=== PATIENT | male | born 1940 | race Caucasian/White ===

== ENCOUNTER → 2016-08-19 | Outpatient (CLI) | payer MEDICARE, OTHER ==
[~2016-08-19] MED LIST: ALIS300T PO; ALLO100T66 PO; AMIO200T2 PO; AMLO10TA4 PO; AMLO5TAB2 PO; ASPI325T4 PO; CLON0.1T PO; DABI150C PO; LOSA100T2 PO; LOSA100T6 PO; SOTA80TA20 PO
[2016-08-19 12:25] LABS: ALBUMIN 3.2 g/dL (3.4-5.0); CALCIUM 9.2 mg/dL (8.5-10.1); CREATININE 0.9 mg/dL (0.7-1.3); DIRECT BILIRUBIN 0.2 mg/dL (0.0-0.2); GFR 82.5; POTASSIUM 4.4 mmol/L (3.5-5.1); TOTAL BILIRUBIN 0.7 mg/dL (0.2-1.0); TOTAL PROTEIN 6.7 g/dL (6.4-8.2)
== END | disposition home or self-care (01) ==
LOC: LAB 11:35
PROVIDERS: ATTEND Orthopaedic Surgery
DX: Z79.1 Long term (current) use of non-steroidal anti-inflammatories (NSAID) (principal)
CPT/HCPCS: 36415; 80048; 80076

== ENCOUNTER 2016-11-21 03:27 | Inpatient (IN) | payer MEDICARE, OTHER ==
[~2016-11-21] VITALS: Ht 182.9 cm; Wt 95.3 kg
[2016-11-21] MEDS ORDERED: IV NORMAL SALINE 1000ML BAG 1,000 ML IV SCH (03:35)
[2016-11-21 03:45] LABS: BASO # 0.1 x10^3/uL (0.0-0.2); BASO % 1 % (0-3); EOS % 2 % (0-3); HEMATOCRIT 40.4 % (39.0-53.0); HEMOGLOBIN 13.4 g/dL (13.0-17.5); LYMPH # 1.1 x10^3/uL (1.0-4.8); LYMPH % 9 % (24-48); MEAN CORPUSCULAR HEMOGLOBIN 31 pg (25-35); MEAN CORPUSCULAR HGB CONC 33 g/dL (31-37); MEAN CORPUSCULAR VOLUME 94 fL (79-100); MONO % 9 % (0-9); NEUT % 80 % (31-73); PLATELET COUNT 284 x10^3/uL (140-400); RED BLOOD COUNT 4.28 x10^6/uL (4.30-5.70); RED CELL DISTRIBUTION WIDTH 15.6 % (11.5-14.5); WHITE BLOOD COUNT 12.2 x10^3/uL (4.0-11.0)
--- NOTE | 2016-11-21 03:47 | PHYS DOC ---
Past Medical History Past Medical History: COPD, Hypertension, Other Additional Past Medical Histor: aFIB Past Surgical History: Other Additional Past Surgical Histo: BACK, KNEES, NECK, THROAT Alcohol Use: Heavy Drug Use: None Adult General Chief Complaint Chief Complaint: SHORTNESS OF BREATH HPI HPI Patient is a 76 year old male with history of hypertension and atrial fibrillation who presents with shortness of breath. Patient states that his symptoms started suddenly and awoke him from sleep prior to arrival. Patient call 911 and was brought to the emergency department by EMS. EMS stated that they found the patient to be hypoxic with an oxygen saturation in the mid 80s and started the patient on a nonrebreather mask with 100% oxygen. Patient states that this seemed to help his symptoms prior to arrival. Patient denies any chest pain or abdominal pain associated with symptoms. Patient has not had any fevers and states he has not had any similar symptoms in the past consistent with what he is experiencing at this time. Patient states that he follows with a housing officer at [facility] where he has been treated for atrial fibrillation in the past. Patient states that he has had electric cardioversion which has been able to convert him to sinus rhythm. Review of Systems Review of Systems Constitutional: Denies fever or chills [] Eyes: Denies change in visual acuity, redness, or eye pain [] HENT: Denies nasal congestion or sore throat [] Respiratory: Shortness of breath, denies cough [] Cardiovascular: Denies chest pain or edema [] GI: Denies abdominal pain, nausea, vomiting, bloody stools or diarrhea [] : Denies dysuria or hematuria [] Musculoskeletal: Denies back pain or joint pain [] Integument: Denies rash or skin lesions [] Neurologic: Denies headache, focal weakness or sensory changes [] Current Medications Current Medications Current Medications Medications (Trade) Dose Ordered Sig/Karime Start Time Stop Time Status Last Admin Dose Admin Acetaminophen (Tylenol) 650 mg PRN Q4HRS PRN 11/21/16 04:00 11/22/16 03:59 Furosemide (Lasix) 60 mg 1X ONCE 11/21/16 04:00 11/21/16 04:01 DC 11/21/16 04:01 60 MG Ondansetron HCl (Zofran) 4 mg PRN Q8HRS PRN 11/21/16 04:00 11/22/16 03:59 Sodium Chloride (Iv Sodium Chloride 0.9% 1000ml Bag) 1,000 ml @ 100 mls/hr Q10H 11/21/16 03:35 11/21/16 13:34 11/21/16 03:56 100 MLS/HR Allergies Allergies Allergies Coded Allergies Type Severity Reaction Last Updated Verified Penicillins Allergy Intermediate Rash 08/11/13 Yes Physical Exam Physical Exam Constitutional: Alert, afebrile, appears in mild respiratory distress. [] HENT: Normocephalic, atraumatic, bilateral external ears normal, oropharynx moist, no oral exudates, nose normal. [] Eyes: PERRLA, EOMI, conjunctiva normal, no discharge. [] Neck: Normal range of motion, no tenderness, supple, no stridor. [] Cardiovascular: Normal rate, irregular rhythm, no murmur [] Lungs & Thorax: Bilateral breath sounds clear to auscultation [] Abdomen: Bowel sounds normal, soft, no tenderness, no masses, no pulsatile masses. [] Skin: Warm, dry, no erythema, no rash. [] Back: No tenderness, no CVA tenderness. [] Extremities: No tenderness, no cyanosis, no clubbing, ROM intact, no edema. [] Neurologic: Alert and oriented X 3, normal motor function, normal sensory function, no focal deficits noted. [] Current Patient Data Vital Signs Vital Signs Date Time Temp Pulse Resp B/P Pulse Ox O2 Delivery O2 Flow Rate FiO2 11/21/16 03:32 77 20 229/95 91 Room Air Lab Values Laboratory Tests Test 11/21/16 03:33 11/21/16 03:40 White Blood Count 12.2x10^3/uL (4.0-11.0) H Red Blood Count 4.28x10^6/uL (4.30-5.70) L Hemoglobin 13.4g/dL (13.0-17.5) Hematocrit 40.4% (39.0-53.0) Mean Corpuscular Volume 94fL (79-100) Mean Corpuscular Hemoglobin 31pg (25-35) Mean Corpuscular Hemoglobin Concent 33g/dL (31-37) Red Cell Distribution Width 15.6% (11.5-14.5) H Platelet Count 284x10^3/uL (140-400) Neutrophils (%) (Auto) 80% (31-73) H Lymphocytes (%) (Auto) 9% (24-48) L Monocytes (%) (Auto) 9% (0-9) Eosinophils (%) (Auto) 2% (0-3) Basophils (%) (Auto) 1% (0-3) Neutrophils # (Auto) 9.8x10^3uL (1.8-7.7) H Lymphocytes # (Auto) 1.1x10^3/uL (1.0-4.8) Monocytes # (Auto) 1.0x10^3/uL (0.0-1.1) Eosinophils # (Auto) 0.2x10^3/uL (0.0-0.7) Basophils # (Auto) 0.1x10^3/uL (0.0-0.2) Sodium Level 134mmol/L (136-145) L Potassium Level 4.4mmol/L (3.5-5.1) Chloride Level 101mmol/L (98-107) Carbon Dioxide Level 28mmol/L (21-32) Anion Gap 5 (6-14) L Blood Urea Nitrogen 17mg/dL (8-26) Creatinine 1.2mg/dL (0.7-1.3) Estimated GFR (Cockcroft-Gault) 59.2 BUN/Creatinine Ratio 14 (6-20) Glucose Level 111mg/dL (70-99) H Calcium Level 8.5mg/dL (8.5-10.1) Total Bilirubin 0.7mg/dL (0.2-1.0) Aspartate Amino Transferase (AST) 23U/L (15-37) Alanine Aminotransferase (ALT) 32U/L (16-63) Alkaline Phosphatase 99U/L (46-116) Creatine Kinase 99U/L (39-308) Creatine Kinase MB (Mass) 1.4ng/mL (0.0-3.6) Creatine Kinase MB Relative Index 1.4% (0-4) Troponin I Quantitative < 0.017ng/mL (0.000-0.055) JU-Hng-A-Type Natriuretic Peptide 2772pg/mL (0-124) H Total Protein 6.5g/dL (6.4-8.2) Albumin 3.3g/dL (3.4-5.0) L Albumin/Globulin Ratio 1.0 (1.0-1.7) Urine Collection Type Unknown Urine Color Yellow Urine Clarity Clear Urine pH 7.0 Urine Specific [place] <=1.005 Urine Protein Negativemg/dL (NEG-TRACE) Urine Glucose (UA) Negativemg/dL (NEG) Urine Ketones (Stick) Negativemg/dL (NEG) Urine Blood Negative (NEG) Urine Nitrite Negative (NEG) Urine Bilirubin Negative (NEG) Urine Urobilinogen Dipstick 0.2mg/dL (0.2 mg/dL) Urine Leukocyte Esterase Negative (NEG) Urine RBC Occ/HPF (0-2) Urine WBC 0/HPF (0-4) Urine Squamous Epithelial Cells Occ/LPF Urine Bacteria 0/HPF (0-FEW) Laboratory Tests 11/21/16 03:33 Laboratory Tests 11/21/16 03:33 EKG EKG Interpreted by me: Heart rate 69, atrial fibrillation, nonspecific intraventricular block, leftward axis, no acute ST/T-wave abnormalities present [] Radiology/Procedures Radiology/Procedures One view AP chest x-ray interpreted by me: Bilateral pulmonary edema, pulmonary vascular congestion, mild bilateral pleural effusions, cardiomegaly [] Course & Med Decision Making Course & Med Decision Making Pertinent Labs and Imaging studies reviewed. (See chart for details) Patient's chest x-ray shows evidence of acute congestive heart failure. Patient was given 60 mg of IV Lasix. Patient's oxygen saturations are stable at 93% on nasal cannula. The patient will be admitted for further treatment of acute congestive heart failure. I spoke with Dr. Jamil who was on-call for Dr. Yancey and she accepted care patient in hospital. A consult was placed to Dr. King to follow with patient in hospital. Dragon Disclaimer Dragon Disclaimer This electronic medical record was generated, in whole or in part, using a voice recognition dictation system. Departure Departure Impression: Primary Impression: Acute congestive heart failure Additional Impression: Atrial fibrillation Disposition: ADMITTED INPATIENT Admitting Physician: Jessica Yancey Condition: GUARDED Problem Qualifiers Primary Impression: Acute congestive heart failure Congestive heart failure type: unspecified congestive heart failure type Qualified Code: I50.9 - Heart failure, unspecified Additional Impression: Atrial fibrillation Atrial fibrillation type: unspecified Qualified Code: I48.91 - Unspecified atrial fibrillation JACE MCFARLAND MD Nov 21, 2016 03:47
[2016-11-21 03:48] LABS: BILIRUBIN,URINE NEGATIVE (NEG); GLUCOSE,URINE NEGATIVE (NEG); NITRITE,URINE NEGATIVE (NEG); PROTEIN,URINE NEGATIVE (NEG-TRACE); UROBILINOGEN,URINE 0.2 mg/dL (0.2 mg/dL)
[2016-11-21 03:53] LABS: BACTERIA,URINE 0 /HPF (0-FEW); RBC,URINE OCC /HPF (0-2); SQUAMOUS EPITHELIAL CELL,UR OCC /LPF; WBC,URINE 0 /HPF (0-4)
[2016-11-21 03:56] LABS: CALCIUM 8.5 mg/dL (8.5-10.1); CREATININE 1.2 mg/dL (0.7-1.3); GFR 59.2; POTASSIUM 4.4 mmol/L (3.5-5.1)
[2016-11-21] MEDS ORDERED: FUROSEMIDE 40 MG/4 ML VIAL. IVP ONE (04:00)
[2016-11-21] MEDS ORDERED: ONDANSETRON PF 4 MG/2 ML VIAL. IV PRN (04:00)
[2016-11-21] MEDS ORDERED: ACETAMINOPHEN 325 MG TABLET. PO PRN (04:00)
[2016-11-21 04:06] LABS: ALBUMIN 3.3 g/dL (3.4-5.0); TOTAL BILIRUBIN 0.7 mg/dL (0.2-1.0); TOTAL PROTEIN 6.5 g/dL (6.4-8.2)
[2016-11-21 04:18] LABS: CKMB MASS 1.4 ng/mL (0.0-3.6)
--- NOTE | 2016-11-21 06:11 | EKG ---
[facility] [address] [place] [address] Test Date: 2016-11-21 Test Time: 03:32:42 Pat Name: TRUDY VALADEZ Department: Room: 204 1 Gender: M Multimedia Services Coordinator: : 1940 Requested By: JACE MCFARLAND Order Number: [id number] Reading MD: True Dodge Measurements Intervals [place] Rate: 69 P: MA: QRS: -26 QRSD: 126 T: 78 QT: 372 QTc: 404 Interpretive Statements ATRIAL FIBRILLATION NON SPECIFIC INTRAVENTRICULAR BLOCK PRIOR BIRDIE-SEPTAL INFARCT Electronically Signed On 11-21-2016 18:00:10 CDT by True Dodge
--- NOTE | 2016-11-21 07:17 | RAD ---
Exam: AP portable chest. History: Shortness of breath. Comparison: 04/28/2011. Findings: Cardiac silhouette is borderline enlarged. No pneumothorax is seen. There may be small bilateral pleural effusions. Pulmonary vascularity is increased and there are increased interstitial markings. Patchy bilateral alveolar densities are seen, probably asymmetric pulmonary edema. Findings are compatible with mild-moderate congestive heart failure. Impression: 1. Multilevel moderate congestive heart failure
[2016-11-21 07:50] VITALS: BP 172/79
--- NOTE | 2016-11-21 07:57 | ACF ---
Admit Criteria Forms Admit Criteria Forms Admit Criteria Forms HEART FAILURE: COMMON COMPLICATIONS Clinical Indications for Inpatient Care (Place 'X' for any and all applicable criteria): Ongoing inpatient care may be indicated for heart failure with ANY ONE of the following (1)(2)(3)(4)(5): [ ]I. Ongoing need for care for primary condition requiring frequent therapy adjustments because of changes in cardiac function (eg, drug dosage changes for drugs that are renally metabolized) [ ]II. New-onset heart failure [ ]III. Heart failure with decreased urine output not responsive to attempts to optimize volume status [ ]IV. Acute cardiac ischemia causing or associated with failure [X]V. Complications of heart failure, including ANY ONE of the following: [ ]a) Pericardial effusion [ ]b) Symptomatic pleural effusion [ ]c) O2 saturation <90% or PO2 < 60 mm Hg (8.0 kPa) on room air or require baseline supplemental O2 [ ]d) Tachypnea [X]e) Dyspnea [ ]f) Syncope [ ]g) Change in mental status [ ]h) Acute renal insufficiency that is severe (reduction of more than 50% in estimated glomerular filtration rate from baseline) or progressive reduction of more than 25% in estimated glomerular filtration rate from baseline, with creatinine continuing to rise) [ ]i) Hemodynamic instability [ ]j) Anasarca [ ]k) Clinically significant metabolic abnormalities due to heart failure (eg, new-onset metabolic acidosis) Extended stay beyond goal length of stay for primary condition may be needed until ALL of the following are present(1)(3): [ ]a) Stable and effective diuretic regimen established (or patient on stable dialysis regimen if in chronic renal failure) [ ]b) Breathing comfortably at rest [ ]c) Saturation of arterial oxygen greater than 90% or at acceptable baseline [ ]d) Pulmonary edema absent or improved [ ]e) Hemodynamic stability [ ]f) Volume status acceptable on oral medication [ ]g) Peripheral or sacral edema absent or improved [ ]h) Renal function stable and manageable at a lower level of care [ ]i) Complications (eg, pleural effusion) resolved or manageable at a lower level of care [ ]j) Patient or caregiver has received written discharge instructions or educational material addressing activity level, diet, discharge medications, follow-up appointment, weight monitoring, and what to do if symptoms worsen The original [employer] content created by [employer] has been revised. The portions of the content which have been revised are identified through the use of italic text or in bold, and [facility] has neither reviewed nor approved the modified material.All other unmodified content is copyright [facility] [employer]. Please see references footnoted in the original [facility] [employer] edition 2016 MUKESH GOLDEN Nov 21, 2016 07:57
[2016-11-21] MEDS ORDERED: AMLO10TA2 PO (08:10)
[2016-11-21] MEDS ORDERED: SOTA80TA48 PO (08:10)
[2016-11-21] MEDS ORDERED: FINA5TAB4 PO (08:10)
[2016-11-21] MEDS ORDERED: TRAM50TA PO (08:10)
[2016-11-21] MEDS ORDERED: TAMS0.4C2 PO (08:10)
[2016-11-21] MEDS ORDERED: TRAMADOL 50 MG TABLET. PO SCH (08:15)
--- NOTE | 2016-11-21 08:23 | PDOC ---
PROGRESS NOTES Subjective Subjective Patient reports SOA has improved since admission. Denies any CP. Objective Objective Vital Signs Date Time Temp Pulse Resp B/P Pulse Ox O2 Delivery O2 Flow Rate FiO2 11/21/16 07:50 97.9 76 20 172/79 97 Nasal Cannula 3.0 97.9 Intake and Output 11/21/16 07:00 Intake Total 200 ml Balance 200 ml Intake IV Total 200 ml Physical Exam Abdomen: Normal bowel sounds, Soft, No tenderness Heart: Other (irregularly irregular) Extremities: No edema General: Alert, Oriented X3, No acute distress Lungs: Other (BS decreased throughout but otherwise CTA) Assessment Assessment Problems Medical Problems: (1) Acute congestive heart failure Status: Acute (2) Atrial fibrillation Status: Acute (3) CHF (congestive heart failure) Status: Acute Plan Plan of Care 1. Acute CHF with pulmonary edema - good diuresis with one dose of Lasix. Await further evaluation as per Cardiology. 2. PAF - continue Pradaxa and ASA. Rate controlled. 3. HTN - continue home meds and follow. 4. BPH - continue home meds. 5. chronic back pain - continue Tramadol as needed. Comment Review of Relevant I have reviewed the following items anthony (where applicable) has been applied. Labs Laboratory Tests Test 11/21/16 03:33 11/21/16 03:40 White Blood Count 12.2x10^3/uL (4.0-11.0) Red Blood Count 4.28x10^6/uL (4.30-5.70) Hemoglobin 13.4g/dL (13.0-17.5) Hematocrit 40.4% (39.0-53.0) Mean Corpuscular Volume 94fL (79-100) Mean Corpuscular Hemoglobin 31pg (25-35) Mean Corpuscular Hemoglobin Concent 33g/dL (31-37) Red Cell Distribution Width 15.6% (11.5-14.5) Platelet Count 284x10^3/uL (140-400) Neutrophils (%) (Auto) 80% (31-73) Lymphocytes (%) (Auto) 9% (24-48) Monocytes (%) (Auto) 9% (0-9) Eosinophils (%) (Auto) 2% (0-3) Basophils (%) (Auto) 1% (0-3) Neutrophils # (Auto) 9.8x10^3uL (1.8-7.7) Lymphocytes # (Auto) 1.1x10^3/uL (1.0-4.8) Monocytes # (Auto) 1.0x10^3/uL (0.0-1.1) Eosinophils # (Auto) 0.2x10^3/uL (0.0-0.7) Basophils # (Auto) 0.1x10^3/uL (0.0-0.2) Sodium Level 134mmol/L (136-145) Potassium Level 4.4mmol/L (3.5-5.1) Chloride Level 101mmol/L (98-107) Carbon Dioxide Level 28mmol/L (21-32) Anion Gap 5 (6-14) Blood Urea Nitrogen 17mg/dL (8-26) Creatinine 1.2mg/dL (0.7-1.3) Estimated GFR (Cockcroft-Gault) 59.2 BUN/Creatinine Ratio 14 (6-20) Glucose Level 111mg/dL (70-99) Calcium Level 8.5mg/dL (8.5-10.1) Total Bilirubin 0.7mg/dL (0.2-1.0) Aspartate Amino Transf (AST/SGOT) 23U/L (15-37) Alanine Aminotransferase (ALT/SGPT) 32U/L (16-63) Alkaline Phosphatase 99U/L (46-116) Creatine Kinase 99U/L (39-308) Creatine Kinase MB (Mass) 1.4ng/mL (0.0-3.6) Creatine Kinase MB Relative Index 1.4% (0-4) Troponin I Quantitative < 0.017ng/mL (0.000-0.055) DT-Inu-D-Type Natriuretic Peptide 2772pg/mL (0-124) Total Protein 6.5g/dL (6.4-8.2) Albumin 3.3g/dL (3.4-5.0) Albumin/Globulin Ratio 1.0 (1.0-1.7) Urine Collection Type Unknown Urine Color Yellow Urine Clarity Clear Urine pH 7.0 Urine Specific [place] <=1.005 Urine Protein Negativemg/dL (NEG-TRACE) Urine Glucose (UA) Negativemg/dL (NEG) Urine Ketones (Stick) Negativemg/dL (NEG) Urine Blood Negative (NEG) Urine Nitrite Negative (NEG) Urine Bilirubin Negative (NEG) Urine Urobilinogen Dipstick 0.2mg/dL (0.2 mg/dL) Urine Leukocyte Esterase Negative (NEG) Urine RBC Occ/HPF (0-2) Urine WBC 0/HPF (0-4) Urine Squamous Epithelial Cells Occ/LPF Urine Bacteria 0/HPF (0-FEW) Laboratory Tests Test 11/21/16 03:33 11/21/16 03:40 White Blood Count 12.2x10^3/uL (4.0-11.0) Red Blood Count 4.28x10^6/uL (4.30-5.70) Hemoglobin 13.4g/dL (13.0-17.5) Hematocrit 40.4% (39.0-53.0) Mean Corpuscular Volume 94fL (79-100) Mean Corpuscular Hemoglobin 31pg (25-35) Mean Corpuscular Hemoglobin Concent 33g/dL (31-37) Red Cell Distribution Width 15.6% (11.5-14.5) Platelet Count 284x10^3/uL (140-400) Neutrophils (%) (Auto) 80% (31-73) Lymphocytes (%) (Auto) 9% (24-48) Monocytes (%) (Auto) 9% (0-9) Eosinophils (%) (Auto) 2% (0-3) Basophils (%) (Auto) 1% (0-3) Neutrophils # (Auto) 9.8x10^3uL (1.8-7.7) Lymphocytes # (Auto) 1.1x10^3/uL (1.0-4.8) Monocytes # (Auto) 1.0x10^3/uL (0.0-1.1) Eosinophils # (Auto) 0.2x10^3/uL (0.0-0.7) Basophils # (Auto) 0.1x10^3/uL (0.0-0.2) Sodium Level 134mmol/L (136-145) Potassium Level 4.4mmol/L (3.5-5.1) Chloride Level 101mmol/L (98-107) Carbon Dioxide Level 28mmol/L (21-32) Anion Gap 5 (6-14) Blood Urea Nitrogen 17mg/dL (8-26) Creatinine 1.2mg/dL (0.7-1.3) Estimated GFR (Cockcroft-Gault) 59.2 BUN/Creatinine Ratio 14 (6-20) Glucose Level 111mg/dL (70-99) Calcium Level 8.5mg/dL (8.5-10.1) Total Bilirubin 0.7mg/dL (0.2-1.0) Aspartate Amino Transf (AST/SGOT) 23U/L (15-37) Alanine Aminotransferase (ALT/SGPT) 32U/L (16-63) Alkaline Phosphatase 99U/L (46-116) Creatine Kinase 99U/L (39-308) Creatine Kinase MB (Mass) 1.4ng/mL (0.0-3.6) Creatine Kinase MB Relative Index 1.4% (0-4) Troponin I Quantitative < 0.017ng/mL (0.000-0.055) BL-Rln-X-Type Natriuretic Peptide 2772pg/mL (0-124) Total Protein 6.5g/dL (6.4-8.2) Albumin 3.3g/dL (3.4-5.0) Albumin/Globulin Ratio 1.0 (1.0-1.7) Urine Collection Type Unknown Urine Color Yellow Urine Clarity Clear Urine pH 7.0 Urine Specific [place] <=1.005 Urine Protein Negativemg/dL (NEG-TRACE) Urine Glucose (UA) Negativemg/dL (NEG) Urine Ketones (Stick) Negativemg/dL (NEG) Urine Blood Negative (NEG) Urine Nitrite Negative (NEG) Urine Bilirubin Negative (NEG) Urine Urobilinogen Dipstick 0.2mg/dL (0.2 mg/dL) Urine Leukocyte Esterase Negative (NEG) Urine RBC Occ/HPF (0-2) Urine WBC 0/HPF (0-4) Urine Squamous Epithelial Cells Occ/LPF Urine Bacteria 0/HPF (0-FEW) Medications Current Medications Sodium Chloride (Iv Sodium Chloride 0.9% 1000ml Bag) 1,000 ml @ 100 mls/hr Q10H IV Last administered on 11/21/16 03:56; Start 11/21/16 at 03:35; Stop at 13:34 Furosemide (Lasix) 60 mg 1X ONCE IVP Last administered on 4/28/17at 04:01; Start 11/21/16 at 04:00; Stop 11/21/16 at 04:01; Status DC Ondansetron HCl (Zofran) 4 mg PRN Q8HRS PRN IV NAUSEA/VOMITING; Start 11/21/16 at 04:00; Stop 11/22/16 at 03:59 Acetaminophen (Tylenol) 650 mg PRN Q4HRS PRN PO FEVER; Start 11/21/16 at 04:00 ; Stop 11/22/16 at 03:59 Active Scripts Active Finasteride 5 Mg Tablet 1 Tab PO DAILY Tamsulosin Hcl 0.4 Mg Cap.er.24h 1 Cap PO DAILY Amlodipine Besylate 10 Mg Tablet 10 Mg PO DAILY Tramadol Hcl 50 Mg Tablet 1 Tab PO PRN Q6HRS Sotalol (Sotalol Hcl) 80 Mg Tablet 1 Tab PO BID Reported Clonidine Hcl 0.1 Mg Tablet 0.1 Mg PO BID Losartan Potassium 100 Mg Tablet 100 Mg PO DAILY Pradaxa (Dabigatran Etexilate Mesylate) 150 Mg Capsule 150 Mg PO BID Aspirin 325 Mg Tablet 325 Mg PO DAILY Zyloprim (Allopurinol) 100 Mg Tablet 100 Mg PO DAILY Vitals/I & O Vital Sign - Last 24 Hours 11/21/16 11/21/16 11/21/16 11/21/16 03:32 03:37 04:07 04:37 Pulse 77 82 79 79 Resp 20 B/P 229/95 173/83 129/74 180/78 Pulse Ox 91 91 94 95 O2 Delivery Room Air Room Air Nasal Cannula Nasal Cannula O2 Flow Rate 4 4 11/21/16 11/21/16 11/21/16 11/21/16 05:07 05:30 06:00 07:50 Temp 97.9 97.9 Pulse 72 66 76 Resp 18 20 B/P 164/76 180/79 172/79 Pulse Ox 96 96 97 97 O2 Delivery Nasal Cannula Nasal Cannula Nasal Cannula Nasal Cannula O2 Flow Rate 4 3 3 3.0 Intake and Output 11/20/16 11/20/16 11/21/16 15:00 23:00 07:00 Intake Total 200 ml Balance 200 ml FRANCISCO J CARTER MD Nov 21, 2016 08:22
[2016-11-21] MEDS ORDERED: ANTI-COAG MONITOR BY PHARMACY. MC PRN (08:30)
[2016-11-21] MEDS ORDERED: ASPIRIN 325 MG TABLET PO SCH (09:00)
[2016-11-21] MEDS ORDERED: cloNIDine HCL 0.1 MG TABLET PO SCH (09:00)
--- NOTE | 2016-11-21 09:20 | HP ---
ADMIT DATE: 11/21/2016 CHIEF COMPLAINT: Shortness of breath. HISTORY OF PRESENT ILLNESS: The patient is a 76-year-old male with a history of paroxysmal atrial fibrillation, who presented to the Emergency Room with the above complaint. He reported the onset of significant shortness of breath on the night of admission. It awoke him from sleep. When his symptoms persisted, he called 911, and was brought to the Emergency Room. EMS reported they found the patient to be hypoxic with an oxygen saturation in the mid 80s on room air and had started him on oxygen. Evaluation in the Emergency Room showed him to be in acute congestive heart failure with some pulmonary edema seen on his chest x-ray. He was given Lasix and admitted for further treatment. PAST MEDICAL HISTORY: Paroxysmal atrial fibrillation, the patient sees a ride operator at [facility] for this; hypertension; gout; BPH and chronic back pain. PAST SURGICAL HISTORY: Back surgery, carotid endarterectomy and knee surgery. ALLERGIES: THE PATIENT IS ALLERGIC TO PENICILLIN. HOME MEDICATIONS: Pradaxa 150 mg b.i.d., the patient reports he just resumed this recently; aspirin 325 mg daily; allopurinol 100 mg daily; amlodipine 10 mg daily; clonidine 0.1 mg b.i.d.; finasteride 5 mg daily; losartan 100 mg daily; sotalol 80 mg b.i.d.; Flomax 0.4 mg daily and tramadol 50 mg p.r.n. back pain. FAMILY HISTORY: Noncontributory. SOCIAL HISTORY: The patient is and lives at home with his . He smokes about 1/2 pack of cigarettes daily. He does not drink alcohol to excess. REVIEW OF SYSTEMS: The patient denies fever or chills. He denies chest pain. He reports that he had been in sinus rhythm for over 1 year until recently when he felt some palpitations and knew that he had gone back into atrial fibrillation. He did not have any chest pain with this. He resumed taking his Pradaxa when this occurred, but apparently made no other changes in his medications. He denies other episodes of shortness of breath. He denies a productive cough. He has had some mildly increasing shortness of breath for some time before this admission, it suddenly worsened last night. He denies abdominal pain, nausea or vomiting. He reports his back pain is controlled with his usual medication. He denies difficulty urinating. PHYSICAL EXAMINATION: GENERAL: The patient is alert and oriented x 3, resting comfortably in bed, in no acute distress. HEENT: PERRL, EOMI, sclerae clear. Oropharynx: Mucous membranes moist. NECK: Supple, without lymphadenopathy. CHEST: Breath sounds mildly decreased throughout, but otherwise clear to auscultation. CARDIOVASCULAR: Irregularly irregular. ABDOMEN: Soft, nontender, normoactive bowel sounds are present. EXTREMITIES: Without edema. ASSESSMENT AND PLAN: 1. Congestive heart failure. The patient had pulmonary edema and hypoxia at admission. He states his breathing is improved with the oxygen per nasal cannula. He received one dose of IV Lasix in the ER and had good urine output with that. He will be seen by Cardiology while he is here for help with further evaluation and treatment. 2. Atrial fibrillation. Continue anticoagulation and medications for rate control. 3. Hypertension. Continue home medications. 4. Benign prostatic hyperplasia. Continue home medication. 5. Chronic back pain. This appears stable. Continue tramadol as needed. FRANCISCO J CARTER MD DR: GADIEL/ryan JOB#: [id number] / [id number] JEFFREY
[2016-11-21 09:32] LABS: CHOLESTEROL/HDL RATIO 2.8; MAGNESIUM 1.9 mg/dL (1.8-2.4)
[2016-11-21] MEDS: LOSARTAN POTASSIUM 50 MG TABLET. PO SCH (10:58)
[2016-11-21] MEDS: TAMSULOSIN 0.4 MG CAP.ER.24H. PO SCH (10:58)
[2016-11-21] MEDS: DABIGATRAN ETEXILATE 150 MG CAPSULE. PO SCH ×2 (10:59→20:44)
[2016-11-21] MEDS: SOTALOL 80 MG TABLET. PO SCH ×2 (10:59→20:44)
[2016-11-21] MEDS: amLODIPine BESYLATE 10 MG TABLET PO SCH (10:59)
[2016-11-21] MEDS: ALLOPURINOL 100 MG TABLET. PO SCH (10:59)
[2016-11-21] MEDS: FINASTERIDE 5 MG TABLET. PO SCH (11:00)
--- NOTE | 2016-11-21 11:08 | PDOC2 ---
URIEL MALLOY ASSESSMENT COUNSELOR 11/21/16 1108: CARDIAC CONSULT DATE OF CONSULT Date of Consult DATE: 11/21/16 TIME: 10:37 REASON FOR CONSULT Reason for Consult: Acute CHF REFERRING PHYSICIAN Referring Physician: Sandee SOURCE Source: Chart review, Patient HISTORY OF PRESENT ILLNESS HISTORY OF PRESENT ILLNESS This is a pleasant 76 yo male admitted for complains of SOA. Reports that in the last 2 weeks he has been having intermittent episodes of MOFFETT. In the last 1 -2 days it has become worse. Positive for SOA at rest but has not been having orthopnea. Denies any nausea, vomiting, chest pain, no coughing. Reports continued tobacco use and heavy alcoholism. Denies any IVY workup. Last stress test was 4 yrs ago. Reports that he has been taking his medications regularly but his BP has been up and down. Denies any palpitations, dizziness. He does have COPD but no inhalers. 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 WHITE". He is on pradaxa and regular dose ASA and he told me that his DrDomonique is ok with this. No prior hx of CAD, VTE, syncope. He had AFIB for 4-5 yrs now. PAST MEDICAL HISTORY Cardiovascular: AFIB, HTN, Other (carotid artery disease) Pulmonary: COPD CENTRAL NERVOUS SYSTEM: Other (No pertinent history) GI: No pertinent hx Heme/Onc: Other (chronic anticoagulation) Musculoskeletal: low back pain, Osteoarthritis Rheumatologic: No pertinent hx, Gout Infectious disease: No pertinent hx ENT: No pertinent hx Renal/: Benign prostatic enlarg. Endocrine: No pertinent hx Dermatology: No pertinent hx PAST SURGICAL HISTORY Past Surgical History: Total knee replacement (right), Other (cervical and lumbar fusion; right carotid endarterectomy) FAMILY HISTORY Family History noncontributory SOCIAL HISTORY Smoke: <1 pack per day ALCOHOL: occassional Drugs: None CURRENT MEDICATIONS CURRENT MEDICATIONS Current Medications Medications (Trade) Dose Ordered Sig/Karime Route PRN Reason Start Time Stop Time Status Last Admin Dose Admin Sodium Chloride (Iv Sodium Chloride 0.9% 1000ml Bag) 1,000 ml @ 100 mls/hr Q10H IV 11/21/16 03:35 11/21/16 13:34 11/21/16 03:56 Furosemide (Lasix) 60 mg 1X ONCE IVP 11/21/16 04:00 11/21/16 04:01 DC 11/21/16 04:01 ALLERGIES ALLERGIES: Coded Allergies: Penicillins (Verified Allergy, Intermediate, Rash, 08/11/13) ROS Review of System 14 point ROS evaluated with pertinent positives noted per HPI PHYSICAL EXAM General: Alert, Oriented X3, Cooperative, No acute distress HEENT: Atraumatic, Mucous membr. moist/pink Lungs: Other (right basilar crackles) Heart: Normal S1, Normal S2, Other (AFIB; distatn heart sounds) Extremities: No cyanosis, Other (trace LE edema) Skin: No breakdown, No significant lesion Neuro: Normal speech, Sensation intact Psych/Mental Status: Mental status NL, Mood NL MUSCULOSKELETAL: Osteoarthritic changes both hands VITALS VITALS Vital Signs Date Time Temp Pulse Resp B/P Pulse Ox O2 Delivery O2 Flow Rate FiO2 11/21/16 07:50 97.9 76 20 172/79 97 Nasal Cannula 3.0 97.9 LABS Lab: Laboratory Tests Test 11/21/16 03:33 11/21/16 03:40 White Blood Count 12.2x10^3/uL (4.0-11.0) Red Blood Count 4.28x10^6/uL (4.30-5.70) Hemoglobin 13.4g/dL (13.0-17.5) Hematocrit 40.4% (39.0-53.0) Mean Corpuscular Volume 94fL (79-100) Mean Corpuscular Hemoglobin 31pg (25-35) Mean Corpuscular Hemoglobin Concent 33g/dL (31-37) Red Cell Distribution Width 15.6% (11.5-14.5) Platelet Count 284x10^3/uL (140-400) Neutrophils (%) (Auto) 80% (31-73) Lymphocytes (%) (Auto) 9% (24-48) Monocytes (%) (Auto) 9% (0-9) Eosinophils (%) (Auto) 2% (0-3) Basophils (%) (Auto) 1% (0-3) Neutrophils # (Auto) 9.8x10^3uL (1.8-7.7) Lymphocytes # (Auto) 1.1x10^3/uL (1.0-4.8) Monocytes # (Auto) 1.0x10^3/uL (0.0-1.1) Eosinophils # (Auto) 0.2x10^3/uL (0.0-0.7) Basophils # (Auto) 0.1x10^3/uL (0.0-0.2) Sodium Level 134mmol/L (136-145) Potassium Level 4.4mmol/L (3.5-5.1) Chloride Level 101mmol/L (98-107) Carbon Dioxide Level 28mmol/L (21-32) Anion Gap 5 (6-14) Blood Urea Nitrogen 17mg/dL (8-26) Creatinine 1.2mg/dL (0.7-1.3) Estimated GFR (Cockcroft-Gault) 59.2 BUN/Creatinine Ratio 14 (6-20) Glucose Level 111mg/dL (70-99) Calcium Level 8.5mg/dL (8.5-10.1) Magnesium Level 1.9mg/dL (1.8-2.4) Total Bilirubin 0.7mg/dL (0.2-1.0) Aspartate Amino Transf (AST/SGOT) 23U/L (15-37) Alanine Aminotransferase (ALT/SGPT) 32U/L (16-63) Alkaline Phosphatase 99U/L (46-116) Creatine Kinase 99U/L (39-308) Creatine Kinase MB (Mass) 1.4ng/mL (0.0-3.6) Creatine Kinase MB Relative Index 1.4% (0-4) Troponin I Quantitative < 0.017ng/mL (0.000-0.055) AT-Kjm-I-Type Natriuretic Peptide 2772pg/mL (0-124) Total Protein 6.5g/dL (6.4-8.2) Albumin 3.3g/dL (3.4-5.0) Albumin/Globulin Ratio 1.0 (1.0-1.7) Triglycerides Level 43mg/dL (0-150) Cholesterol Level 141mg/dL (0-200) LDL Cholesterol, Calculated 81mg/dL (0-100) VLDL Cholesterol, Calculated 9mg/dL (0-40) Non-HDL Cholesterol Calculated 90mg/dL (0-129) HDL Cholesterol 51mg/dL (40-60) Cholesterol/HDL Ratio 2.8 Thyroid Stimulating Hormone (TSH) 2.291uIU/mL (0.358-3.74) Urine Collection Type Unknown Urine Color Yellow Urine Clarity Clear Urine pH 7.0 Urine Specific [place] <=1.005 Urine Protein Negativemg/dL (NEG-TRACE) Urine Glucose (UA) Negativemg/dL (NEG) Urine Ketones (Stick) Negativemg/dL (NEG) Urine Blood Negative (NEG) Urine Nitrite Negative (NEG) Urine Bilirubin Negative (NEG) Urine Urobilinogen Dipstick 0.2mg/dL (0.2 mg/dL) Urine Leukocyte Esterase Negative (NEG) Urine RBC Occ/HPF (0-2) Urine WBC 0/HPF (0-4) Urine Squamous Epithelial Cells Occ/LPF Urine Bacteria 0/HPF (0-FEW) ASSESSMENT/PLAN ASSESSMENT/PLAN 1. Acute CHF with possible diastolic dysfunction: likely from uncontrolled HTN, possible IVY, COPD 2. COPD: no home treatments 3. PAFIB: currently AFIB rate controlled 4. Malignant HTN: contributing ETOH, tobaccoism, and possible IVY 5. Tobaccoism 6. Heavy alcoholism: 6 reyna light daily, defer to PCP 7. Hx of carotid artery disease Recommendations 1. Continue on pradaxa and sotalol. Would prefer ECASA at 81 rather that 325. 2. Discussed smoking cessation, bp monitoring and decreasing ETOH intake, and interactions with meds. 3. Continue with lasix therapy. 4. Would recommend repeat outpt MPI for further risk stratification. Last test 4 -5 yrs ago. Will defer to [facility] roofing subcontractor 5. Further recommendation per TTE results. 6. Restart home BP meds. 7. Lipids, TSH, Mg Problems: SHIRLEY CORDERO MD 11/21/161906: CARDIAC CONSULT ALLERGIES ALLERGIES: Coded Allergies: Penicillins (Verified Allergy, Intermediate, Rash, 08/11/13) ASSESSMENT/PLAN ASSESSMENT/PLAN Patient seen and examined. Agree with above nurse practitioner note. 76-year-old gentleman who presents to the hospital in the setting of hypertensive emergency. He had acute hypoxic respiratory failure. Patient reports compliance with his medications. At baseline he is able to ambulate 2-3 miles daily without any chest pain. Decreased breath sounds in the bilateral lung holland. Normal cardiac exam. He has no edema. Labs reviewed and notable for stable creatinine and negative cardiac enzymes. Etiology of his acute hypertensive crisis is unclear. It may be that he may have missed some doses of clonidine and could've had rebound hypertension. We will monitor him over the course of today and reassess the need to increase his clonidine prior to discharge. Suspect he might need to increase his clonidine to 0.2 mg twice a day dosing or additional agent such as hydralazine may be necessary. Discussed lifestyle modification with the patient. We will assess possible renal artery stenosis on an outpatient basis. Continue supportive care. We will follow along closely. Anticipate discharge tomorrow from a CV perspective. Problems: URIEL MALLOY APRN Nov 21, 2016 11:08 SHIRLEY CORDERO MD Nov 21, 2016 19:07
[2016-11-21 11:30] VITALS: BP 137/57
[2016-11-21] MEDS: FUROSEMIDE 40 MG/4 ML VIAL. IVP SCH ×2 (13:03→17:35)
--- NOTE | 2016-11-21 13:19 | CARD ---
APPROVED REPORT EXAM: Two-dimensional and M-mode echocardiogram with Doppler and color Doppler. Other Information Quality : GoodHR: 70bpm Rhythm : Atrial Fibrillation INDICATION Congestive Heart Failure 2D DIMENSIONS RVDd3.0 (2.9-3.5cm)Left Atrium(2D)4.0 (1.6-4.0cm) IVSd1.0 (0.7-1.1cm)Aortic Root(2D)2.6 (2.0-3.7cm) LVDd5.4 (3.9-5.9cm)LVOT Diameter2.3 (1.8-2.4cm) PWd1.0 (0.7-1.1cm)LVDs3.7 (2.5-4.0cm) FS (%) 31.1 %SV83.7 ml LVEF(%)58.3 (>50%) Aortic Valve AoV Peak Ambrocio.163.3cm/sAoV VTI29.0cm AO Peak GR.10.7mmHgLVOT Peak Ambrocio.104.6cm/s LVOT VTI 19.94cmAO Mean GR.5mmHg NORBERT (VMAX)2.10wd9OXO (VTI)2.82cm2 Mitral Valve MV E Dqixtdes779.9cm/sMV DECEL [id number] MV AUA22cjHLT (PHT)3.47cm2 Pulmonary Valve PV Peak Yafedfag509.4cm/sPV Peak Grad.5mmHg RVOT VTI16.0cm Tricuspid Valve TR P. Xjzmakgk957vo/sRAP HMGLDCBV5svIm TR Peak Gr.40oyCiWFOJ56pyTs LEFT VENTRICLE The left ventricle is normal size. There is normal left ventricular wall thickness. Left ventricle sy stolic function is normal. The Ejection Fraction is 55-60%. There is normal LV segmental wall motion. Tissue Doppler imaging reveals moderate left ventricular diastolic dysfunction. There is no ventricu lar septal defect visualized. RIGHT VENTRICLE The right ventricle is normal size. The right ventricular systolic function is normal. ATRIA The left atrium size is normal. The right atrium size is normal. The interatrial septum is intact wit h no evidence for an atrial septal defect or patent foramen ovale as noted on 2-D or Doppler imaging. AORTIC VALVE The aortic valve is mildly sclerotic but opens well. The aortic valve is trileaflet. Doppler and [place] r Flow revealed no significant aortic regurgitation. There is no significant aortic valvular stenosis . MITRAL VALVE Mitral annular calcification is mild. The mitral valve leaflets are calcified but open well. There is no evidence of mitral valve prolapse. There is no mitral valve stenosis. Doppler and Color Flow reve aled trace mitral regurgitation. TRICUSPID VALVE The tricuspid valve is normal in structure and function. Doppler and Color Flow revealed mild tricusp id regurgitation. The PA pressure was estimated at 34 mmHg. There is no tricuspid valve stenosis. PULMONIC VALVE Doppler and Color Flow revealed no pulmonic valvular regurgitation. There is no pulmonic valvular nickie nosis. GREAT VESSELS The aortic root is normal in size. The IVC is normal in size and collapses >50% with inspiration. PERICARDIAL EFFUSION There is no pleural effusion. There is no evidence of significant pericardial effusion. Critical Notification Critical Value: No <Conclusion> Left ventricle systolic function is normal. The Ejection Fraction is 55-60%. There is normal LV segmental wall motion. Tissue Doppler imaging reveals moderate left ventricular diastolic dysfunction.
[2016-11-21 14:33] VITALS: BP 168/76
[2016-11-21] MEDS: POTASSIUM CHLORIDE 20 MEQ TABLET.ER. PO SCH (17:35)
[2016-11-21] MEDS ORDERED: TRAMADOL 50 MG TABLET. PO PRN (17:41)
[2016-11-21 19:29] VITALS: BP 150/91
[2016-11-21] MEDS: cloNIDine HCL 0.2 MG TABLET PO SCH (20:44)
[2016-11-21 22:50] VITALS: BP 140/60
[2016-11-22 03:26] VITALS: BP 146/77
[2016-11-22 06:15] LABS: BASO % 1 % (0-3); EOS % 2 % (0-3); HEMOGLOBIN 12.6 g/dL (13.0-17.5); LYMPH # 1.5 x10^3/uL (1.0-4.8); LYMPH % 21 % (24-48); MEAN CORPUSCULAR HEMOGLOBIN 31 pg (25-35); MEAN CORPUSCULAR HGB CONC 33 g/dL (31-37); MEAN CORPUSCULAR VOLUME 94 fL (79-100); MONO % 11 % (0-9); NEUT % 65 % (31-73); PLATELET COUNT 263 x10^3/uL (140-400); RED BLOOD COUNT 4.05 x10^6/uL (4.30-5.70); RED CELL DISTRIBUTION WIDTH 15.6 % (11.5-14.5); WHITE BLOOD COUNT 7.2 x10^3/uL (4.0-11.0)
[2016-11-22 06:58] LABS: CALCIUM 8.3 mg/dL (8.5-10.1)
[2016-11-22 06:59] LABS: CREATININE 0.9 mg/dL (0.7-1.3); GFR 82.5; POTASSIUM 3.2 mmol/L (3.5-5.1)
[2016-11-22 07:00] VITALS: BP 158/64
[2016-11-22] MEDS ORDERED: ASPIRIN ENTERIC COATED 81 MG TABLET.DR. PO SCH (08:00)
[2016-11-22] MEDS: POTASSIUM CHLORIDE 20 MEQ TABLET.ER. PO SCH (08:19)
[2016-11-22] MEDS: ALLOPURINOL 100 MG TABLET. PO SCH (08:19)
[2016-11-22] MEDS: DABIGATRAN ETEXILATE 150 MG CAPSULE. PO SCH (08:19)
[2016-11-22] MEDS: cloNIDine HCL 0.2 MG TABLET PO SCH (08:20)
[2016-11-22] MEDS: amLODIPine BESYLATE 10 MG TABLET PO SCH (08:20)
[2016-11-22] MEDS: LOSARTAN POTASSIUM 50 MG TABLET. PO SCH (08:20)
[2016-11-22] MEDS: TAMSULOSIN 0.4 MG CAP.ER.24H. PO SCH (08:21)
[2016-11-22] MEDS: FUROSEMIDE 40 MG/4 ML VIAL. IVP SCH (08:22)
[2016-11-22] MEDS: SOTALOL 80 MG TABLET. PO SCH (09:00)
[2016-11-22] MEDS ORDERED: POTASSIUM CHLORIDE 20 MEQ TABLET.ER. PO ONE (09:45)
[2016-11-22] MEDS: FINASTERIDE 5 MG TABLET. PO SCH (10:04)
--- NOTE | 2016-11-22 10:49 | PDOC ---
KRZYSZTOF BHANDARI BROKER ASSOCIATE 11/22/16 1049: CARDIO Progress Notes Date and Time Date of Service 11/22/16 Time of Evaluation 0930 Subjective Subjective: No Chest Pain, No shortness of breath, No Palpitations, Other ( wanting to discharge) Comments: bradycardic in the low 30's overnight. Vitals Vitals Vital Signs Date Time Temp Pulse Resp B/P Pulse Ox O2 Delivery O2 Flow Rate FiO2 11/22/16 08:20 50 158/64 11/22/16 07:50 Room Air 11/22/16 07:00 97.7 21 96 97.7 11/21/16 14:33 3.0 Weight Weight [ ] Input and Output Intake and Output Intake and Output 11/22/16 06:59 Intake Total 1240 ml Output Total 4800 ml Balance -3560 ml Intake Oral 1240 ml Output Urine Total 4800 ml Laboratory Labs Laboratory Tests Test 11/21/16 10:45 11/21/16 15:45 11/22/16 05:00 Troponin I Quantitative 0.017ng/mL (0.000-0.055) < 0.017ng/mL (0.000-0.055) White Blood Count 7.2x10^3/uL (4.0-11.0) Red Blood Count 4.05x10^6/uL (4.30-5.70) Hemoglobin 12.6g/dL (13.0-17.5) Hematocrit 38.0% (39.0-53.0) Mean Corpuscular Volume 94fL (79-100) Mean Corpuscular Hemoglobin 31pg (25-35) Mean Corpuscular Hemoglobin Concent 33g/dL (31-37) Red Cell Distribution Width 15.6% (11.5-14.5) Platelet Count 263x10^3/uL (140-400) Neutrophils (%) (Auto) 65% (31-73) Lymphocytes (%) (Auto) 21% (24-48) Monocytes (%) (Auto) 11% (0-9) Eosinophils (%) (Auto) 2% (0-3) Basophils (%) (Auto) 1% (0-3) Neutrophils # (Auto) 4.7x10^3uL (1.8-7.7) Lymphocytes # (Auto) 1.5x10^3/uL (1.0-4.8) Monocytes # (Auto) 0.8x10^3/uL (0.0-1.1) Eosinophils # (Auto) 0.2x10^3/uL (0.0-0.7) Basophils # (Auto) 0.0x10^3/uL (0.0-0.2) Sodium Level 139mmol/L (136-145) Potassium Level 3.2mmol/L (3.5-5.1) Chloride Level 102mmol/L (98-107) Carbon Dioxide Level 28mmol/L (21-32) Anion Gap 9 (6-14) Blood Urea Nitrogen 16mg/dL (8-26) Creatinine 0.9mg/dL (0.7-1.3) Estimated GFR (Cockcroft-Gault) 82.5 Glucose Level 111mg/dL (70-99) Calcium Level 8.3mg/dL (8.5-10.1) Magnesium Level 1.9mg/dL (1.8-2.4) Physical Exam HEENT: Neck Supple W Full Motion Chest: Symmetric LUNGS: Clear to Auscultation Heart: S1S2, no murmurs, irregularly irregular (tele; AFIB with bradycardia. HR in upper 40's to low 50's ) Abdomen: Soft N/T Extremities: 2+ Dorsalis Pedis, No Edema Neurology: alert, oriented, follow commands Assessment Assessment 1. Acute diastolic HF 2. Malignant Hypertension 3. Bradycardia, sinus 4. PAFIB 5. Hypokalemia 6. Tobaccoism Recommendations Echo shows preserved LV function Significantly bradycardic overnight with increase of Clonidine. Will decrease to 0.1mg BID. Continue Sotalol. Pradaxa for stroke prevention BP remains labile; will add HCTZ 25mg for better controlled and reassess need for further titration of meds on an outpatient basis Replace K. Reinforced smoking cessation May discharge from CV standpoint and f/u in our office with Dr. Dodge in 2- 4 weeks. SHIRLEY DODGE MD 11/22/16 0545: CARDIO Progress Notes Plan Plan Pt. seen and examined. Agree with above DOG HAIR CLIPPER Note. No acute issues. Noted to have bradycardia (asymptomatic) No changes in exam. will plan for decrease in sotalol to 80mg a.m./40mg pm. Start HCTZ 12.5mg daily F/u in the office next week for event monitor and labs. Thanks, ok to DC home. KRZYSZTOF BHANDARI APRN Nov 22, 2016 10:49 SHIRLEY DODGE MD Nov 22, 2016 12:35
[2016-11-22 11:30] VITALS: BP 145/64
[2016-11-22] MEDS ORDERED: cloNIDine HCL 0.1 MG TABLET PO SCH (11:30)
[2016-11-22] MEDS ORDERED: ASPI81TA9 PO (13:19)
[2016-11-22] MEDS ORDERED: HYDR25TA9 PO (13:19)
[2016-11-22] MEDS ORDERED: SOTA80TA48 PO (13:19)
--- NOTE | 2016-11-22 13:26 | PDOC3 ---
Discharge Summary Visit Information Date of Admission: Nov 21, 2016 Date of Discharge: Nov 22, 2016 Final Diagnosis Problems Medical Problems: (1) Acute congestive heart failure Status: Acute (2) Atrial fibrillation Status: Acute (3) CHF (congestive heart failure) Status: Acute Brief Hospital Course Allergies Allergies Coded Allergies Type Severity Reaction Last Updated Verified Penicillins Allergy Intermediate Rash 08/11/13 Yes Vital Signs Vital Signs Date Time Temp Pulse Resp B/P Pulse Ox O2 Delivery O2 Flow Rate FiO2 11/22/16 11:30 98.5 46 20 145/64 97 Room Air 98.5 11/21/16 14:33 3.0 Lab Results Laboratory Tests Test 11/21/16 03:33 11/21/16 03:40 11/21/16 10:45 11/21/16 15:45 White Blood Count 12.2x10^3/uL (4.0-11.0) Red Blood Count 4.28x10^6/uL (4.30-5.70) Hemoglobin 13.4g/dL (13.0-17.5) Hematocrit 40.4% (39.0-53.0) Mean Corpuscular Volume 94fL (79-100) Mean Corpuscular Hemoglobin 31pg (25-35) Mean Corpuscular Hemoglobin Concent 33g/dL (31-37) Red Cell Distribution Width 15.6% (11.5-14.5) Platelet Count 284x10^3/uL (140-400) Neutrophils (%) (Auto) 80% (31-73) Lymphocytes (%) (Auto) 9% (24-48) Monocytes (%) (Auto) 9% (0-9) Eosinophils (%) (Auto) 2% (0-3) Basophils (%) (Auto) 1% (0-3) Neutrophils # (Auto) 9.8x10^3uL (1.8-7.7) Lymphocytes # (Auto) 1.1x10^3/uL (1.0-4.8) Monocytes # (Auto) 1.0x10^3/uL (0.0-1.1) Eosinophils # (Auto) 0.2x10^3/uL (0.0-0.7) Basophils # (Auto) 0.1x10^3/uL (0.0-0.2) Sodium Level 134mmol/L (136-145) Potassium Level 4.4mmol/L (3.5-5.1) Chloride Level 101mmol/L (98-107) Carbon Dioxide Level 28mmol/L (21-32) Anion Gap 5 (6-14) Blood Urea Nitrogen 17mg/dL (8-26) Creatinine 1.2mg/dL (0.7-1.3) Estimated GFR (Cockcroft-Gault) 59.2 BUN/Creatinine Ratio 14 (6-20) Glucose Level 111mg/dL (70-99) Calcium Level 8.5mg/dL (8.5-10.1) Magnesium Level 1.9mg/dL (1.8-2.4) Total Bilirubin 0.7mg/dL (0.2-1.0) Aspartate Amino Transf (AST/SGOT) 23U/L (15-37) Alanine Aminotransferase (ALT/SGPT) 32U/L (16-63) Alkaline Phosphatase 99U/L (46-116) Creatine Kinase 99U/L (39-308) Creatine Kinase MB (Mass) 1.4ng/mL (0.0-3.6) Creatine Kinase MB Relative Index 1.4% (0-4) Troponin I Quantitative < 0.017ng/mL (0.000-0.055) 0.017ng/mL (0.000-0.055) < 0.017ng/mL (0.000-0.055) OE-Jgw-M-Type Natriuretic Peptide 2772pg/mL (0-124) Total Protein 6.5g/dL (6.4-8.2) Albumin 3.3g/dL (3.4-5.0) Albumin/Globulin Ratio 1.0 (1.0-1.7) Triglycerides Level 43mg/dL (0-150) Cholesterol Level 141mg/dL (0-200) LDL Cholesterol, Calculated 81mg/dL (0-100) VLDL Cholesterol, Calculated 9mg/dL (0-40) Non-HDL Cholesterol Calculated 90mg/dL (0-129) HDL Cholesterol 51mg/dL (40-60) Cholesterol/HDL Ratio 2.8 Thyroid Stimulating Hormone (TSH) 2.291uIU/mL (0.358-3.74) Urine Collection Type Unknown Urine Color Yellow Urine Clarity Clear Urine pH 7.0 Urine Specific [place] <=1.005 Urine Protein Negativemg/dL (NEG-TRACE) Urine Glucose (UA) Negativemg/dL (NEG) Urine Ketones (Stick) Negativemg/dL (NEG) Urine Blood Negative (NEG) Urine Nitrite Negative (NEG) Urine Bilirubin Negative (NEG) Urine Urobilinogen Dipstick 0.2mg/dL (0.2 mg/dL) Urine Leukocyte Esterase Negative (NEG) Urine RBC Occ/HPF (0-2) Urine WBC 0/HPF (0-4) Urine Squamous Epithelial Cells Occ/LPF Urine Bacteria 0/HPF (0-FEW) Test 11/22/16 05:00 White Blood Count 7.2x10^3/uL (4.0-11.0) Red Blood Count 4.05x10^6/uL (4.30-5.70) Hemoglobin 12.6g/dL (13.0-17.5) Hematocrit 38.0% (39.0-53.0) Mean Corpuscular Volume 94fL (79-100) Mean Corpuscular Hemoglobin 31pg (25-35) Mean Corpuscular Hemoglobin Concent 33g/dL (31-37) Red Cell Distribution Width 15.6% (11.5-14.5) Platelet Count 263x10^3/uL (140-400) Neutrophils (%) (Auto) 65% (31-73) Lymphocytes (%) (Auto) 21% (24-48) Monocytes (%) (Auto) 11% (0-9) Eosinophils (%) (Auto) 2% (0-3) Basophils (%) (Auto) 1% (0-3) Neutrophils # (Auto) 4.7x10^3uL (1.8-7.7) Lymphocytes # (Auto) 1.5x10^3/uL (1.0-4.8) Monocytes # (Auto) 0.8x10^3/uL (0.0-1.1) Eosinophils # (Auto) 0.2x10^3/uL (0.0-0.7) Basophils # (Auto) 0.0x10^3/uL (0.0-0.2) Sodium Level 139mmol/L (136-145) Potassium Level 3.2mmol/L (3.5-5.1) Chloride Level 102mmol/L (98-107) Carbon Dioxide Level 28mmol/L (21-32) Anion Gap 9 (6-14) Blood Urea Nitrogen 16mg/dL (8-26) Creatinine 0.9mg/dL (0.7-1.3) Estimated GFR (Cockcroft-Gault) 82.5 Glucose Level 111mg/dL (70-99) Calcium Level 8.3mg/dL (8.5-10.1) Magnesium Level 1.9mg/dL (1.8-2.4) Laboratory Tests Test 11/21/16 15:45 11/22/16 05:00 Troponin I Quantitative < 0.017ng/mL (0.000-0.055) White Blood Count 7.2x10^3/uL (4.0-11.0) Red Blood Count 4.05x10^6/uL (4.30-5.70) Hemoglobin 12.6g/dL (13.0-17.5) Hematocrit 38.0% (39.0-53.0) Mean Corpuscular Volume 94fL (79-100) Mean Corpuscular Hemoglobin 31pg (25-35) Mean Corpuscular Hemoglobin Concent 33g/dL (31-37) Red Cell Distribution Width 15.6% (11.5-14.5) Platelet Count 263x10^3/uL (140-400) Neutrophils (%) (Auto) 65% (31-73) Lymphocytes (%) (Auto) 21% (24-48) Monocytes (%) (Auto) 11% (0-9) Eosinophils (%) (Auto) 2% (0-3) Basophils (%) (Auto) 1% (0-3) Neutrophils # (Auto) 4.7x10^3uL (1.8-7.7) Lymphocytes # (Auto) 1.5x10^3/uL (1.0-4.8) Monocytes # (Auto) 0.8x10^3/uL (0.0-1.1) Eosinophils # (Auto) 0.2x10^3/uL (0.0-0.7) Basophils # (Auto) 0.0x10^3/uL (0.0-0.2) Sodium Level 139mmol/L (136-145) Potassium Level 3.2mmol/L (3.5-5.1) Chloride Level 102mmol/L (98-107) Carbon Dioxide Level 28mmol/L (21-32) Anion Gap 9 (6-14) Blood Urea Nitrogen 16mg/dL (8-26) Creatinine 0.9mg/dL (0.7-1.3) Estimated GFR (Cockcroft-Gault) 82.5 Glucose Level 111mg/dL (70-99) Calcium Level 8.3mg/dL (8.5-10.1) Magnesium Level 1.9mg/dL (1.8-2.4) Brief Hospital Course Mr. Rodas is a 76 old who presented with Afib, RVR and acute systolic heart failure and admitted and seen by cardiology. Heart rate controlled and failure treated and resolved, he was also quite hypertensive and BP meds were adjusted, this caused some asymptomatic bradycardia last night so further adjustments are being made and he will pickle cutter an event recorder from cardiology this week and f /u up with them and have lab repeated then. No other complications, he will resume his Pradaxa and decrease his aspirin from 325 mg to 81 mg and HCTZ 12.5 mg is added and sotolol is decreased from 80 mg bid to 80 mg qam, 40 mg q acssi Discharge Information Condition at Discharge: Improved, Stable Follow Up: Weeks (1-2) Disposition/Orders: D/C to Home Scheduled Allopurinol (Zyloprim) 100 MG PO DAILY (Reported) Amlodipine Besylate (Amlodipine Besylate) 10 MG PO DAILY Aspirin (Aspirin) 325 MG PO DAILY (Reported) Clonidine Hcl (Clonidine Hcl) 0.1 MG PO BID (Reported) Dabigatran Etexilate Mesylate (Pradaxa) 150 MG PO BID (Reported) Finasteride (Finasteride) 1 TAB PO DAILY Losartan Potassium (Losartan Potassium) 100 MG PO DAILY (Reported) Sotalol Hcl (Sotalol) 1 TAB PO BID Tamsulosin Hcl (Tamsulosin Hcl) 1 CAP PO DAILY Tramadol Hcl (Tramadol Hcl) 1 TAB PO PRN Q6HRS Discontinued Medications Aliskiren Hemifumarate (Tekturna) 300 MG PO DAILY (Reported) Amiodarone Hcl (Amiodarone Hcl) 200 MG PO DAILY (Reported) Amlodipine Besylate (Amlodipine Besylate) 5 MG PO DAILY (Reported) KEYONA ANGLIN MD Nov 22, 2016 13:26
[2016-11-23] MEDS ORDERED: HYDROCHLOROTHIAZIDE 25 MG TABLET PO SCH ×2 (09:00)
== END 2016-11-22 15:11 | disposition home or self-care (01) | DRG 292 ==
LOC: ER 03:27 → ED HOLD 04:27 → 2 NORTH 05:53
PROVIDERS: ADMIT Family Medicine; ATTEND Family Medicine
DX: I11.0 Hypertensive heart disease with heart failure (principal); I16.1 Hypertensive emergency; E87.6 Hypokalemia; F10.20 Alcohol dependence, uncomplicated; F17.210 Nicotine dependence, cigarettes, uncomplicated; G89.29 Other chronic pain; I48.0 Paroxysmal atrial fibrillation; I50.41 Acute combined systolic (congestive) and diastolic (congestive) heart failure; J44.9 Chronic obstructive pulmonary disease, unspecified; M10.9 Gout, unspecified; N40.0 Benign prostatic hyperplasia without lower urinary tract symptoms; Z96.651 Presence of right artificial knee joint; R09.02 Hypoxemia; Z79.01 Long term (current) use of anticoagulants; Z79.899 Other long term (current) drug therapy; Z88.0 Allergy status to penicillin
CPT/HCPCS: 36415; 71010; 80048; 80053; 80061; 81001; 82553; 83735; 83880; 84443; 84484; 85027; 93005; 93306; 96361; 96374; J1940; J7030; 99285-25

== ENCOUNTER → 2016-11-24 | Outpatient (CLI) | payer MEDICARE, OTHER ==
[2016-11-22 11:30] VITALS: BP 145/64
[~2016-11-24] MED LIST changes: +AMLO10TA2 PO; +ASPI81TA9 PO; +FINA5TAB4 PO; +HYDR25TA9 PO; +SOTA80TA48 PO; +TAMS0.4C2 PO; +TRAM50TA PO
[2016-11-24 14:49] LABS: CALCIUM 9.1 mg/dL (8.5-10.1); CREATININE 0.9 mg/dL (0.7-1.3); GFR 82.5; POTASSIUM 4.5 mmol/L (3.5-5.1)
== END | disposition home or self-care (01) ==
LOC: LAB 14:17
PROVIDERS: ATTEND Internal Medicine Cardiovascular Disease
DX: I48.0 Paroxysmal atrial fibrillation (principal)
CPT/HCPCS: 36415; 80048

== ENCOUNTER 2017-01-01 09:33 | Observation (INO) | payer MEDICARE, OTHER ==
[2017-01-01] VITALS (12 sets, daily range): BP systolic 113–156; BP diastolic 47–81
[~2017-01-01] VITALS: Ht 180.3 cm; Wt 95.1 kg
[~2017-01-01 09:33] MED LIST changes: +ASPI-612 PO; -ASPI325T4 PO; +ASPI325T8 PO; -ASPI81TA9 PO
[2017-01-01] MEDS ORDERED: VANCOMYCIN 1 GM in IV NORMAL SALINE 250ML 250 ML IV ONE ×2 (09:39→21:30)
[2017-01-01] MEDS ORDERED: BACITRACIN 50,000 UNIT in IV NORMAL SALINE 250ML 250 ML IRR ONE (09:45)
[2017-01-01 09:59] LABS: HEMATOCRIT 41.4 % (39.0-53.0); HEMOGLOBIN 14.2 g/dL (13.0-17.5); RED BLOOD COUNT 4.57 x10^6/uL (4.30-5.70); RED CELL DISTRIBUTION WIDTH 15.3 % (11.5-14.5); WHITE BLOOD COUNT 6.5 x10^3/uL (4.0-11.0)
[2017-01-01 10:09] LABS: INR 1.1 (0.8-1.1); PROTHROMBIN TIME PATIENT 13.8 SEC (11.7-14.0)
[2017-01-01 10:11] LABS: CALCIUM 9.1 mg/dL (8.5-10.1); CREATININE 0.8 mg/dL (0.7-1.3); GFR 94.5; POTASSIUM 3.6 mmol/L (3.5-5.1)
--- NOTE | 2017-01-01 10:25 | EKG ---
[facility] [address] [place] [address] Test Date: 2017-01-01 Test Time: 10:22:45 Pat Name: TRUDY VALADEZ Department: Room: Gender: M Corporate Counselor: GAYLA : 1940 Requested By: SHIRLEY CORDERO Order Number: [id number] Reading MD: Jaci Arana Measurements Intervals [place] Rate: 52 P: [place]: QRS: -30 QRSD: 134 T: 37 QT: 470 QTc: 439 Interpretive Statements ATRIAL FIBRILLATION ABNORMAL LEFT AXIS DEVIATION NON SPECIFIC INTRAVENTRICULAR BLOCK QRS(T) CONTOUR ABNORMALITY CONSISTENT WITH ANTEROSEPTAL INFARCT ABNORMAL ECG Electronically Signed On 01-03-2017 19:02:39 CDT by Jaci Arana
[2017-01-01] MEDS ORDERED: LIDOCAINE 2%/EPI 1:100,000 20 ML VIAL. ONE (11:59)
[2017-01-01] MEDS ORDERED: MIDAZOLAM HCL/PF 5 MG/5 ML VIAL. ONE (12:02)
[2017-01-01] MEDS ORDERED: fentaNYL PF VIAL 250 MCG/5 ML VIAL ONE (12:02)
--- NOTE | 2017-01-01 12:23 | PDOC ---
MODERATE SEDATION ASSESSMENT RISKS/ALTERNATIVES Risks/Alternatives Risks and alternatives of this type of sedation and procedure discussed with: RISK/ALTERNATIVES: Patient H & P ON CHART H & P H & P on chart and reviewed for co-morbid conditions and appropriate labs. H&P ON CHART: Yes STATUS PREG STATUS ASSESSED: N/A MEDS/ALLERGIES REVIEWED Meds/Allergies Reviewed Medications and Allergies including time and route of recently administered narcotics and sedatives. MEDS/ALLERGIES REVIEWED: Yes ASA RATING ASA RATING: II AIRWAY ASSESSMENT Airway Assessment Airway patency, oral function limitations, presence of caps, crowns, dentures, partials, and ability to extend neck assessed. AIRWAY ASSESSMENT: Yes MALLAMPATI SCORE MALLAMPATI SCORE: III PRE-SEDATION ASSESSMENT PRE-SEDATION ASSESSMENT: Yes SHIRLEY CORDERO MD Jan 01, 2017 12:23
[2017-01-01] MEDS ORDERED: IOHEXOL 300 MG/ML 100ML VIAL. ONE (12:35)
[2017-01-01] MEDS ORDERED: fentaNYL PF VIAL 250 MCG/5 ML VIAL IV ONE (12:45)
[2017-01-01] MEDS ORDERED: LIDOCAINE 2%/EPI 1:100,000 20 ML VIAL. IJ ONE (12:45)
[2017-01-01] MEDS ORDERED: MIDAZOLAM HCL/PF 5 MG/5 ML VIAL. IV ONE (12:45)
[2017-01-01] MEDS ORDERED: CONTRAST GIVEN MC PRN (13:15)
[2017-01-01] MEDS ORDERED: IOHEXOL 300 MG/ML 100ML VIAL. IV ONE (13:15)
[2017-01-01] MEDS ORDERED: NO ANTICOAGULANT THERAPY. MC PRN (14:00)
[2017-01-01] MEDS ORDERED: oxyCODONE/APAP 5/325 1 TAB TABLET PO PRN (14:00)
--- NOTE | 2017-01-01 14:40 | RAD ---
Portable chest, 01/01/2017: History: Postop pacemaker placement Comparison is made to a study from 11/21/2016. A left-sided transvenous pacing device has been inserted with a single lead extending into the right ventricle. The heart size and pulmonary vascularity are normal. There is calcific plaquing of the aorta. Previously seen pulmonary infiltrates have resolved. There is no evidence of pneumothorax or significant pleural fluid. IMPRESSION: 1. Interval insertion of a left-sided transvenous pacemaker with a single lead extending into the right ventricle. 2. No acute cardiopulmonary abnormality is detected.
[2017-01-01] MEDS: DABIGATRAN ETEXILATE 150 MG CAPSULE. PO SCH (16:44)
[2017-01-01] MEDS ORDERED: traMADol 50 MG TABLET PO PRN (16:45)
[2017-01-01] MEDS: LOSARTAN POTASSIUM 50 MG TABLET. PO SCH (17:00)
[2017-01-01] MEDS: amLODIPine BESYLATE 10 MG TABLET PO SCH (17:00)
[2017-01-01] MEDS: ASPIRIN ENTERIC COATED 81 MG TABLET.DR. PO SCH (17:00)
[2017-01-01] MEDS: hydroCHLOROthiazide 12.5 MG CAPSULE PO SCH (17:00)
[2017-01-01] MEDS: ALLOPURINOL 100 MG TABLET. PO SCH (17:00)
[2017-01-01] MEDS: FINASTERIDE 5 MG TABLET. PO SCH (18:10)
[2017-01-01] MEDS: TAMSULOSIN 0.4 MG CAP.ER.24H. PO SCH (18:10)
[2017-01-01] MEDS ORDERED: SOTALOL 80 MG TABLET. PO SCH (21:00)
[2017-01-01] MEDS: cloNIDine HCL 0.1 MG TABLET PO SCH (21:31)
[2017-01-02 03:00] VITALS: BP 134/87
[2017-01-02 07:38] VITALS: BP 153/79
[2017-01-02] MEDS: FINASTERIDE 5 MG TABLET. PO SCH (09:00)
[2017-01-02] MEDS: DABIGATRAN ETEXILATE 150 MG CAPSULE. PO SCH (09:00)
[2017-01-02] MEDS ORDERED: SOTALOL 80 MG TABLET. PO SCH (09:00)
[2017-01-02] MEDS: TAMSULOSIN 0.4 MG CAP.ER.24H. PO SCH (09:00)
[2017-01-02] MEDS: ALLOPURINOL 100 MG TABLET. PO SCH (09:00)
[2017-01-02] MEDS: hydroCHLOROthiazide 12.5 MG CAPSULE PO SCH (09:06)
[2017-01-02] MEDS: cloNIDine HCL 0.1 MG TABLET PO SCH (09:06)
[2017-01-02] MEDS: LOSARTAN POTASSIUM 50 MG TABLET. PO SCH (09:06)
[2017-01-02 09:08] VITALS: BP 153/79
[2017-01-02] MEDS: amLODIPine BESYLATE 10 MG TABLET PO SCH (09:08)
[2017-01-02] MEDS: ASPIRIN ENTERIC COATED 81 MG TABLET.DR. PO SCH (09:08)
--- NOTE | 2017-01-02 09:08 | CARD ---
APPROVED REPORT PROCEDURES Insertion Single Chamber Ventricle Pacemaker Total moderate sedation time: 68 min. 30 mL of 2% lidocaine was infiltrated into the skin and subcutaneous tissues for local anesthesia. A n incision was made over the left infraclavicular fossa and using blunt dissection and cautery a pock et was created. Venous access was obtained in the left subclavian vein and 6French sheaths were inse rted. Subsequently, a Biotronik bipolar active fixation right ventricular lead model Solia S 53, SN [id number] was advanced under fluoroscopic guidance and the tip was positioned in the right ventricular apex. The lead was secured into place and were attached to single chamber permanent pacemaker generator [facility] 8 SR-T Pro MRI, SN [id number]. This was placed in the pocket that was subsequently closed i n 3 layers. Hemostasis was secured. At the end of procedure, the right ventricular lead showed sensing amplitude of 14.9 mV, impedance of 674 ohms and a threshold of 0.5volts. Patient tolerated the procedure well. There were no immedia te complications. CONCLUSION Successful insertion of a single chamber Biotronik pacemaker for SSS and chronic afib.
--- NOTE | 2017-01-02 10:56 | RAD ---
Indication status post pacemaker placement 01/01/2017. Assess for potential complication. PA and lateral views of the chest were obtained. Comparison is made to an examination one day earlier. The heart and pulmonary vessels remain normal. Unipolar cardiac pacing device is again noted. No pneumothorax is seen. There is some volume loss at the right lung base likely reflecting atelectasis. There may be a tiny right pleural effusion. IMPRESSION: No evidence of pneumothorax. Slight volume loss at the right lung base likely reflects atelectasis. Probable small right pleural effusion
--- NOTE | 2017-01-02 11:01 | PDOC3 ---
Discharge Summary Visit Information Date of Admission: Jan 01, 2017 Date of Discharge: Jan 02, 2017 Admitting Diagnosis Comment: 1. SSS 2. sinus pause > 2.5 seconds 3. PAF 4. HTN 5. heart disease 6. chronic oral anticoagulation Final Diagnosis 1. SSS; s/p single chamber BIOTRONIK PPM 2. sinus pause > 2.5 seconds 3. PAF 4. HTN 5. heart disease 6. chronic oral anticoagulation Brief Hospital Course Allergies Allergies Coded Allergies Type Severity Reaction Last Updated Verified Penicillins Allergy Intermediate Rash 08/11/13 Yes Vital Signs Vital Signs Date Time Temp Pulse Resp B/P (MAP) Pulse Ox O2 Delivery O2 Flow Rate FiO2 01/02/17 09:08 64 153/79 01/02/17 08:10 Room Air 01/02/17 07:38 98.0 18 99 98.0 01/01/17 13:45 94.0 Lab Results Laboratory Tests Test 01/01/17 09:50 White Blood Count 6.5 x10^3/uL (4.0-11.0) Red Blood Count 4.57 x10^6/uL (4.30-5.70) Hemoglobin 14.2 g/dL (13.0-17.5) Hematocrit 41.4 % (39.0-53.0) Mean Corpuscular Volume 91 fL (79-100) Mean Corpuscular Hemoglobin 31 pg (25-35) Mean Corpuscular Hemoglobin Concent 34 g/dL (31-37) Red Cell Distribution Width 15.3 % (11.5-14.5) Platelet Count 263 x10^3/uL (140-400) Prothrombin Time 13.8 SEC (11.7-14.0) Prothromb Time International Ratio 1.1 (0.8-1.1) Activated Partial Thromboplast Time 37 SEC (24-38) Sodium Level 140 mmol/L (136-145) Potassium Level 3.6 mmol/L (3.5-5.1) Chloride Level 103 mmol/L (98-107) Carbon Dioxide Level 30 mmol/L (21-32) Anion Gap 7 (6-14) Blood Urea Nitrogen 11 mg/dL (8-26) Creatinine 0.8 mg/dL (0.7-1.3) Estimated GFR (Cockcroft-Gault) 94.5 Glucose Level 103 mg/dL (70-99) Calcium Level 9.1 mg/dL (8.5-10.1) Brief Hospital Course Mr. Rodas is a 76 old male with SSS, sinus pauses of > 2.5 seconds during sleep, and PAF on vent monitor. PAF burden 98%. HR 21 - 120 and longest pause was 4.8 seconds. PPM implantation was advised and pt agreeable with R/B/A. Single chamber Biotronik PPM implanted on . See procedure report for details. Monitored overnight - rhythm underlying Afib with V-pacing. Interrogation this a.m without significant findings. No ptx on CXR. Wound C/D/I without erythema, ecchymosis or edema. Skin edges approximated. Discussed use of immobilizer for sleeping. Discharge Information Condition at Discharge: Stable Follow Up: Weeks (2 with cardiology; 7 - 10 days with PCP) Disposition/Orders: D/C to Home Scheduled Allopurinol (Zyloprim), 100 MG PO DAILY, (Reported) Amlodipine Besylate (Amlodipine Besylate), 10 MG PO DAILY Aspirin (Aspirin Ec), 81 MG PO DAILYWBKFT Clonidine Hcl (Clonidine Hcl), 0.1 MG PO BID, (Reported) Dabigatran Etexilate Mesylate (Pradaxa), 150 MG PO BID, (Reported) Finasteride (Finasteride), 1 TAB PO DAILY Hydrochlorothiazide (Hydrochlorothiazide Tablet ), 12.5 MG PO DAILY Losartan Potassium (Losartan Potassium), 100 MG PO DAILY, (Reported) Sotalol Hcl (Sotalol), 80 MG PO 1 qAM, 1/2 qPM Tamsulosin Hcl (Tamsulosin Hcl), 1 CAP PO DAILY Tramadol Hcl (Tramadol Hcl), 1 TAB PO PRN Q6HRS Patient Instructions Patient Instructions Must know & what to expect after device implant: 1. Your surgical dressing should be removed prior to discharge from the hospital, but allow the steri- strips to fall off naturally. 2. Activity restrictions: DO NOT raise arm above shoulder level, lift anything heavier than a gallon of milk, and no push or pull motions such as vacuuming/lawn mowing, no swinging motions (golf), etc for 4 weeks. 3. It is OK to use a cell phone or other electronic devices just be sure you do not store it in a breast pocket on the side where the device was placed. 4. Device will be interrogated prior to your discharge from the hospital and then every 3 months for defibrillators and every 6 months for pacemakers. You may be asked to have your device checked remotely from home as well, but this will depend on your particular physicians preference. 5. You may remove the arm immobilizer the day after device placement. Wear the arm immobilizer/splint at night (during sleep times) for 2 week to prevent unintended arm movement that can cause lead dislodgement. 6. Do not drive for one week as the task of driving may lead to unintended arm motion that may cause lead dislodgement. The seatbelt will also rub against the incision site & cause irritation. 7. It is our recommendation that you utilize Tylenol at home for pain control. You need to call our office if you are having uncontrollable pain at the incision site. 8. Keep your incision clean and dry. It is OK to shower. DO NOT submerge in bath, pool, or hot tub, until cleared by your doctor, as this could lead to increase risk of infection.. It is OK to use regular soap just do not scrub the incision site. Water spray from shower should not directly hit the incision. Be sure to blot dry not rub. 9. Inspect your incision daily. If you notice any increased redness, swelling , or drainage, or if you start running a fever, call the office immediately. The number is [phone]. 10. For women, if you need to protect against irritation from the bra straps, you can place a piece of gauze over the incision site for cushion. Please be sure to tape it loosely to allow air to the site & remove the gauze when you remove the bra. 11. Be sure to carry your device identification information card in your wallet/purse at all times. 12. It is OK to go through security at the airport with your device, but be sure to let the TSA know prior to proceeding as the security settings change depending on varying factors. Please do whatever is requested by security at that time. 13. Some of the newer devices may be MRI compatible but, currently, the use of these devices is not widespread, so you likely will not be able to have an MRI. Please clarify this with your physician. If at any time, you feel lightheaded or dizzy/faint, stop what you are doing & lie down immediately. If you are driving, get to the side of the road quickly, turn your car off & call 911 on your cell phone. DO NOT continue to drive as this may cause an accident that seriously injures yourself &/or others. Call the office at [phone] for any questions or concerns. MENDEZ MOROCHO APRN Jan 02, 2017 11:01
== END 2017-01-02 12:10 | disposition home or self-care (01) ==
LOC: CCL 09:33 → 2 NORTH 09:57 → INTOOBSV 09:57
PROVIDERS: ADMIT Internal Medicine Cardiovascular Disease; ATTEND Internal Medicine Cardiovascular Disease
DX: I49.5 Sick sinus syndrome (principal); I48.0 Paroxysmal atrial fibrillation; I10 Essential (primary) hypertension; G89.29 Other chronic pain; Z79.01 Long term (current) use of anticoagulants; Z88.0 Allergy status to penicillin
CPT/HCPCS: 33207; 36415; 71010; 71020; 80048; 85027; 85610; 85730; 93005; 96365; 96366; 96375; 99406; C1786; C1892; C1898; G0378; G0379; J2250; J3010; J3370; J3490; J7050; Q9967; J7030

== ENCOUNTER 2017-06-22 06:43 | Outpatient (CLI) | payer MEDICARE, OTHER ==
[~2017-06-22] VITALS: Ht 182.9 cm; Wt 95.3 kg
[2017-06-22 07:57] LABS: INR 1.1 (0.8-1.1); PROTHROMBIN TIME PATIENT 13.6 SEC (11.7-14.0)
[2017-06-22] MEDS ORDERED: LIDOCAINE 1% / SOD BICARB 8.4% 20 ML VIAL. IJ ONE ×2 (07:59→08:45)
--- NOTE | 2017-06-22 08:05 | PDOC1 ---
History and Physical Date of Procedure Date of Admission 06/22/17 Procedure Procedure Right Thoracentesis Indication Indication Right pleural effusion History of Present Illness Reason for Visit Right Pleural Effusion Past Medical History Past Medical History CHF, SSS s/p pacemaker, afib, HTN Past Surgical History Past Surgical History: Pacemaker Current Medications Current Medications Active Scripts Active Sotalol (Sotalol Hcl) 80 Mg Tablet 80 Mg PO 1 QAM, 1/2 QPM Hydrochlorothiazide Tablet (Hydrochlorothiazide) 25 Mg Tablet 12.5 Mg PO DAILY Aspirin Ec (Aspirin) 81 Mg Tablet.dr 81 Mg PO DAILYWBKFT Finasteride 5 Mg Tablet 1 Tab PO DAILY Tamsulosin Hcl 0.4 Mg Cap.er.24h 1 Cap PO DAILY Amlodipine Besylate 10 Mg Tablet 10 Mg PO DAILY Tramadol Hcl 50 Mg Tablet 1 Tab PO PRN Q6HRS Reported Clonidine Hcl 0.1 Mg Tablet 0.1 Mg PO BID Losartan Potassium 100 Mg Tablet 100 Mg PO DAILY Pradaxa (Dabigatran Etexilate Mesylate) 150 Mg Capsule 150 Mg PO BID Zyloprim (Allopurinol) 100 Mg Tablet 100 Mg PO DAILY Allergies Allergies: Coded Allergies: Penicillins (Verified Allergy, Intermediate, Rash, 08/11/13) Physical Exam Vital Signs GENERAL: No apparent distress. Alert and oriented. HEENT: Head normocephalic, atraumatic. NECK: Supple LUNGS: Clear to auscultation. HEART: RRR, paced NEUROLOGIC: Normal speech Assessment Assessment Right Pleural Effusion Problems: Plan Plan Thoracentesis GABI BYRD MD Jun 22, 2017 08:05
[2017-06-22 08:16] VITALS: BP 143/63
[2017-06-22 08:20] VITALS: BP 140/63
--- NOTE | 2017-06-22 09:06 | RAD ---
PROCEDURE: Ultrasound guided right thoracentesis. The procedure, risks, and complications, to include bleeding, infection and pneumothorax potentially requiring chest tube placement were explained to the patient and they understood and wished to proceed. Consent form signed. The right chest was prepped and draped using maximal sterile technique and 1% Xylocaine used for local anesthesia. Ultrasound evaluation showed moderate to large right pleural effusion. Under ultrasound guidance, a 5F Yueh needle was inserted into the fluid and approximately 1700 mL of thin, straw colored fluid was removed and sent to the lab for evaluation]. Sedation: None Complications: None, chest x-ray pending The patient tolerated the procedure well and returned to the recovery area in a stable condition. IMPRESSION: Ultrasound-guided right thoracentesis.
--- NOTE | 2017-06-22 09:52 | RAD ---
Portable chest, 06/22/2017: History: Postthoracentesis evaluation Comparison is made to a study from 01/02/2017. A left-sided transvenous pacemaker remains in place with a single lead extending into the right ventricle. The heart size is normal. There is calcific plaquing of the aorta. The pulmonary vascularity is normal. There is a small to moderate volume of residual right-sided pleural fluid. The amount of pleural fluid is greater than on the previous study. There is mild underlying right basilar atelectasis. The left chest is clear. No pneumothorax is evident. IMPRESSION: Small to moderate volume of residual right pleural fluid with underlying right basilar atelectasis.
--- NOTE | 2017-06-23 13:49 | PATHOLOGY ---
CYTOPATHOLOGY REPORT CLINICAL HISTORY: Pleural effusion SPECIMEN(S) RECEIVED: A.Pleural fluid, right FINAL DIAGNOSIS: Right pleural fluid, ThinPrep and cell block: - No malignant cells identified. - Scattered focally reactive mesothelial cells are identified within a background of predominantly chronic inflammatory cells. (JPM:jose; 06/23/2017) PATHOLOGIST: Rayshawn Atkinson M.D. REPORT ELECTRONICALLY SIGNED BY: Rayshawn Atkinson M.D. DATE/TIME: 06/23/2017 13:48 GROSS PATHOLOGY: A. Pleural fluid, right: The specimen is submitted unfixed, labeled "Zhen Valadez". Received by the Cytology Department is 35 mL of clear yellow fluid. One ThinPrep slide and a formalin fixed cell block were prepared. ([id number]) DEPUTY INSURANCE COMMISSIONER(S): SHANTANU Alcala(ASCP) INITIAL CPT CODE(S): A; 06665, 74037 Professional services performed [place] [facility] [address] Technical services performed by [facility] at [address] [place] [address], [address], [place] [address]. PATIENT: ZHEN VALADEZ /AGE: 1 1940 (Age: 76) SEX: M PATIENT #: [id number] ALT CASE #: SPECIMEN COLLECTION DATE: 06/22/2017 SPECIMEN RECEIVED DATE: 06/22/[address] [facility] [address] [place] [address], [address] [place] [address] PHONE: [phone] DIRECTOR: Luis Vinson M.D. * * * END OF REPORT * * *
== END 2017-06-22 10:00 | disposition home or self-care (01) ==
LOC: INTRAD 06:43
PROVIDERS: ATTEND Internal Medicine Critical Care Medicine
DX: J90 Pleural effusion, not elsewhere classified (principal); I11.0 Hypertensive heart disease with heart failure; I50.9 Heart failure, unspecified; I48.91 Unspecified atrial fibrillation; Z88.0 Allergy status to penicillin; Z95.0 Presence of cardiac pacemaker
CPT/HCPCS: 32555; 36415; 71010; 83615; 84157; 85610; 87071; 87075; 87205; 88112; 88305

== ENCOUNTER → 2017-07-14 | Outpatient (CLI) | payer MEDICARE, OTHER ==
[2017-06-22 08:20] VITALS: BP 140/63
--- NOTE | 2017-07-14 11:24 | CARD ---
APPROVED REPORT EXAM: Two-dimensional and M-mode echocardiogram with Doppler and color Doppler. Other Information Quality : Average INDICATION Dyspnea COPD 2D DIMENSIONS RVDd3.1 (2.9-3.5cm)Left Atrium(2D)5.4 (1.6-4.0cm) IVSd1.3 (0.7-1.1cm)Aortic Root(2D)3.0 (2.0-3.7cm) LVDd5.3 (3.9-5.9cm)LVOT Diameter2.0 (1.8-2.4cm) PWd1.7 (0.7-1.1cm)LVDs2.7 (2.5-4.0cm) FS (%) 49.2 %SV110.0 ml LVEF(%)80.1 (>50%) Aortic Valve AoV Peak Ambrocio.147.9cm/sAoV VTI33.1cm AO Peak GR.8.7mmHgLVOT Peak Ambrocio.78.8cm/s LVOT VTI 19.21cmAO Mean GR.5mmHg NORBERT (VMAX)1.20ev4GDX (VTI)1.86cm2 Mitral Valve MV E Tqkfektj269.3cm/sMV DECEL WEJD176nr MV A Zfezdhkf89.2cm/sMV MUZ92ak E/A Ratio3.2MVA (PHT)5.57cm2 TDI E/Lateral E'10.0E/Medial E'16.6 Pulmonary Valve PV Peak Ndzyflwt32.2cm/s Tricuspid Valve TR P. Rddxrzzd017ea/sRAP REEAVICB7yzPa TR Peak Gr.33dfFjYKNV25svZj LEFT VENTRICLE The left ventricle is normal size. There is mild to moderate concentric left ventricular hypertrophy. The left ventricular systolic function is normal. The ejection fraction is estimated at 60-65%. Ther e is normal LV segmental wall motion. RIGHT VENTRICLE The right ventricle is normal size. There is normal right ventricular wall thickness. The right ventr icular systolic function is normal. ATRIA The left atrium is moderately dilated. The right atrium is moderately dilated. There is a catheter/pa cemaker lead seen in the right atrium. There is moderate pulmonary hypertension. The interatrial sept um is intact with no evidence for an atrial septal defect or patent foramen ovale as noted on 2-D or Doppler imaging. AORTIC VALVE The aortic valve is trileaflet. Doppler and Color Flow revealed trace aortic regurgitation. There is no significant aortic valvular stenosis. MITRAL VALVE The mitral valve is mildly thickened. Mitral annular calcification is mild to moderate. There is no e vidence of mitral valve prolapse. There is no mitral valve stenosis. Doppler and Color-flow revealed mild mitral regurgitation. TRICUSPID VALVE The tricuspid valve is normal in structure and function. Doppler and Color Flow revealed mild tricusp id regurgitation. GREAT VESSELS The aortic root is normal in size. The ascending aorta is normal in size. PERICARDIAL EFFUSION There is no pleural effusion. There is no evidence of significant pericardial effusion. Critical Notification Critical Value: No <Conclusion> The left ventricular systolic function is normal. The ejection fraction is estimated at 60-65%. There is normal LV segmental wall motion. Pacer wire noted in right atrium and right ventricle. Trace aortic regurgitation. Mild mitral regurgitation. Mild tricuspid regurgitation. There is no evidence of significant pericardial effusion.
== END | disposition home or self-care (01) ==
LOC: ECHO 07:40
PROVIDERS: ATTEND Internal Medicine Critical Care Medicine
DX: I08.1 Rheumatic disorders of both mitral and tricuspid valves (principal); J44.9 Chronic obstructive pulmonary disease, unspecified; R06.00 Dyspnea, unspecified
CPT/HCPCS: 93306

== ENCOUNTER 2017-09-14 08:19 | Outpatient (CLI) | payer MEDICARE, OTHER ==
[2017-09-14 08:54] LABS: ADD MAN DIFF? NO
[2017-09-14 09:01] LABS: BASO % 1 % (0-3); EOS # 0.1 x10^3/uL (0.0-0.7); EOS % 1 % (0-3); HEMATOCRIT 41.2 % (39.0-53.0); HEMOGLOBIN 14.1 g/dL (13.0-17.5); LYMPH % 15 % (24-48); MEAN CORPUSCULAR HEMOGLOBIN 32 pg (25-35); MEAN CORPUSCULAR HGB CONC 34 g/dL (31-37); MEAN CORPUSCULAR VOLUME 92 fL (79-100); MONO # 0.7 x10^3/uL (0.0-1.1); MONO % 11 % (0-9); NEUT % 73 % (31-73); PLATELET COUNT 266 x10^3/uL (140-400); RED BLOOD COUNT 4.46 x10^6/uL (4.30-5.70); RED CELL DISTRIBUTION WIDTH 15.6 % (11.5-14.5); WHITE BLOOD COUNT 6.9 x10^3/uL (4.0-11.0)
[2017-09-14 09:18] LABS: INR 1.1 (0.8-1.1); PROTHROMBIN TIME PATIENT 13.9 SEC (11.7-14.0)
[2017-09-14] MEDS ORDERED: LIDOCAINE WITH 8.4% SOD BICARB 3 ML DISP.SYRIN. ×2 (09:25)
[2017-09-14] MEDS: LIDOCAINE WITH 8.4% SOD BICARB 3 ML DISP.SYRIN. IJ ×2 (10:00)
[2017-09-16 09:14] LABS: BODY FLUID LDH 55 IU/L (.)
== END 2017-09-14 11:10 | disposition home or self-care (01) ==
LOC: INTRAD 08:19
DX: J90 Pleural effusion, not elsewhere classified (principal); I25.10 Atherosclerotic heart disease of native coronary artery without angina pectoris; I48.91 Unspecified atrial fibrillation; I10 Essential (primary) hypertension; Z87.39 Personal history of other diseases of the musculoskeletal system and connective tissue; Z72.89 Other problems related to lifestyle; Z72.0 Tobacco use; Z96.652 Presence of left artificial knee joint; Z88.0 Allergy status to penicillin
CPT/HCPCS: 32555; 36415; 71045; 83615; 84157; 85025; 85610; 87071; 87075; 87205; 88112; 88305

== ENCOUNTER → 2017-09-16 | Outpatient (CLI) | payer MEDICARE, OTHER | END | disposition home or self-care (01) | LOC: CT 07:45 | DX: J90 Pleural effusion, not elsewhere classified (principal); K74.60 Unspecified cirrhosis of liver; M47.899 Other spondylosis, site unspecified; I70.0 Atherosclerosis of aorta; R18.8 Other ascites; R91.8 Other nonspecific abnormal finding of lung field | CPT/HCPCS: 71250; 74150 ==

== ENCOUNTER → 2017-10-09 | Outpatient (CLI) | payer MEDICARE, OTHER | END | disposition home or self-care (01) | LOC: US 10:47 | DX: K74.60 Unspecified cirrhosis of liver (principal); E77.8 Other disorders of glycoprotein metabolism; J90 Pleural effusion, not elsewhere classified; I70.0 Atherosclerosis of aorta | CPT/HCPCS: 76700 ==

== ENCOUNTER 2018-01-05 06:57 | Outpatient (CLI) | payer MEDICARE, OTHER ==
[2018-01-05 07:28] LABS: ADD MAN DIFF? NO
[2018-01-05 07:30] LABS: BASO # 0.1 x10^3/uL (0.0-0.2); BASO % 1 % (0-3); EOS # 0.3 x10^3/uL (0.0-0.7); EOS % 5 % (0-3); HEMATOCRIT 40.2 % (39.0-53.0); LYMPH % 16 % (24-48); MEAN CORPUSCULAR HEMOGLOBIN 32 pg (25-35); MEAN CORPUSCULAR HGB CONC 35 g/dL (31-37); MEAN CORPUSCULAR VOLUME 92 fL (79-100); MONO # 0.7 x10^3/uL (0.0-1.1); MONO % 11 % (0-9); NEUT # 4.3 x10^3uL (1.8-7.7); NEUT % 68 % (31-73); PLATELET COUNT 251 x10^3/uL (140-400); RED BLOOD COUNT 4.36 x10^6/uL (4.30-5.70); RED CELL DISTRIBUTION WIDTH 15.2 % (11.5-14.5); WHITE BLOOD COUNT 6.3 x10^3/uL (4.0-11.0)
[2018-01-05 07:40] LABS: INR 1.4 (0.8-1.1); PARTIAL THROMBOPLASTIN TIME 36 SEC (24-38); PROTHROMBIN TIME PATIENT 16.6 SEC (11.7-14.0)
[2018-01-05] MEDS ORDERED: LIDOCAINE WITH 8.4% SOD BICARB 3 ML DISP.SYRIN. (08:05)
[2018-01-05] MEDS: LIDOCAINE WITH 8.4% SOD BICARB 3 ML DISP.SYRIN. INJ (08:28)
[2018-01-06 14:34] LABS: BODY FLUID LDH 51 IU/L (.)
== END 2018-01-05 10:15 | disposition home or self-care (01) ==
LOC: INTRAD 06:57
DX: J90 Pleural effusion, not elsewhere classified (principal); I25.10 Atherosclerotic heart disease of native coronary artery without angina pectoris; I10 Essential (primary) hypertension; N40.0 Benign prostatic hyperplasia without lower urinary tract symptoms; I48.91 Unspecified atrial fibrillation; M10.9 Gout, unspecified; Z96.652 Presence of left artificial knee joint; Z72.89 Other problems related to lifestyle; F17.200 Nicotine dependence, unspecified, uncomplicated; Z88.0 Allergy status to penicillin; Z98.890 Other specified postprocedural states; Z95.0 Presence of cardiac pacemaker; Z79.01 Long term (current) use of anticoagulants
CPT/HCPCS: 32555; 36415; 71045; 83615; 84157; 85025; 85610; 85730; 87071; 87075; 87205; 88112; 88305; 88341; 88342

== ENCOUNTER → 2018-01-06 | Outpatient (CLI) | payer MEDICARE, OTHER | END | disposition home or self-care (01) | LOC: PNCL 09:28 | DX: M54.16 Radiculopathy, lumbar region (principal); M48.061 Spinal stenosis, lumbar region without neurogenic claudication; M96.1 Postlaminectomy syndrome, not elsewhere classified; I11.0 Hypertensive heart disease with heart failure; I50.9 Heart failure, unspecified | CPT/HCPCS: G0463 ==

== ENCOUNTER → 2018-02-01 | Outpatient (CLI) | payer MEDICARE, OTHER ==
[2018-01-05 09:20] VITALS: BP 153/72
[~2018-02-01] MED LIST changes: -AMIO200T2 PO; +AMIO200T4 PO; +LIDOCAINE 1% PF 2 ML VIAL. ONE
--- NOTE | 2018-02-01 21:45 | PAIN ---
DATE OF SERVICE: 02/01/2018 DIAGNOSES: Lumbar radiculopathy with lumbar spinal stenosis and post-lumbar laminectomy syndrome. HISTORY OF PRESENT ILLNESS: The patient is a 77-year-old male who returns for a followup status post preauthorization and psychiatric evaluation for spinal cord stimulator placement. The patient has had a positive recommendation from our psychologist and would like to proceed. The patient still has significant pain in low back, bilateral lower extremities, essentially right equal to left at this time with previous workup for spinal cord stimulator, but without getting the temporary leads done and we will plan on doing that today. The patient reports still significant pain in low back, bilateral extremities, described as aching and dull, shooting, sharp pain, rates a 10 on a scale of 10 at its worst, 8 on average and an 8 at its least and is an 8 today. The patient reports no new motor or sensory deficits. Still awakens him from sleep, but only occasionally. Feels much better when he is off his feet, better with sitting, also much worse with standing, walking and changing positions. PHYSICAL EXAMINATION: VITAL SIGNS: Today, the patient's blood pressure is 139/72, pulse 55, respirations 16, temperature is 98.2 degrees Fahrenheit, height is 6 feet, weight is 206 pounds. GENERAL: The patient is awake, alert, oriented, appropriate, has a very pleasant demeanor. HEENT: Shows normocephalic, atraumatic. Extraocular movements are intact, symmetrical. Oral cavity shows mucous membranes moist and pink. Dentition is intact. NECK: Shows anterior throat supple without palpable lymphadenopathy noted. Swallow reflex symmetrical. CHEST: Shows normal on inspection. Breath sounds are clear to auscultation bilaterally. HEART: Shows S1, S2 clear. No murmurs auscultated. ABDOMEN: Soft, nontender, nondistended. No palpable organomegaly is noted. No rebound or guarding demonstrated. MUSCULOSKELETAL: Back shows spine grossly in the midline. The patient has a well-healed surgical scars, again noted with some flattening of the lumbar distribution. The paraspinous muscles are symmetrical on inspection; with palpation shows some moderate tenderness bilaterally, but only diffusely. No tenderness over the sacrum or sacroiliac regions. Lower extremities show deep tendon reflexes 1+ in the patellar and tendo-calcaneus tendons. Motor exam is strong with 5/5 dorsiflexion, extension, quadriceps and hamstring flexion. Peripheral pulses are 1+ posterior tibia. No peripheral edema is noted. PLAN: Options were discussed with the patient. The patient's old chart was reviewed as his current medication regimen and updated. Current review of systems updated today as well and we will proceed with a spinal cord stimulator temporary lead placement x 2 today with fluoroscopic guidance. Risks were again discussed including, but not limited to bleeding, infection, possibility of epidural hematoma, subsequent neurological compromise, dural puncture, headaches, spinal cord and/or nerve damage, side effects of steroid medication and poor results regarding pain control. The patient understands and wished to proceed. The patient will return to clinic in approximately 2 weeks for followup, was counseled on return appointment, activity level and side effects to be aware of. DIAGNOSES: Lumbar radiculopathy with lumbar spinal stenosis and post-lumbar laminectomy syndrome. PROCEDURE: Spinal cord temporary lead placement x 2 under sterile prep and drape using local anesthetic. Medication injected was 1% lidocaine, a total of 6 mL total for local infiltration for needle placement using 14-gauge styletted kit needle from the [employer] kit. Epidural space was identified using preservative-free normal saline loss of resistance technique with negative aspiration x 2. Final insertion site of the needle was at T11-T12 secondary to increased scar tissue below this level with inability to thread the spinal cord stimulator wire below this at T11-T12, threaded with no difficulty whatsoever. AP and lateral views were used with a C-arm fluoroscopic guidance to verify posterior placement in the epidural space with right-sided lead at the top of the superior endplate of T8 and the left side lead at the top of the superior endplate of T9 again in the midline and posterior, verified on AP and lateral views with fluoroscopy. Stylets and needles were then removed and a 2-0 silk was used to suture the leads in place at the skin with intermittent fluoroscopy to verify no movement of the leads. This was indeed verified. Sterile bandage was applied. The patient tolerated the procedure well. CONDITION AT DISCHARGE: Stable. No complications. The patient will follow up in approximately 4 days for evaluation at that time or sooner if necessary. KELLY BECKER MD DR: TERRI/ryan JOB#: [id number] / [id number]
== END | disposition home or self-care (01) ==
LOC: PNCL 12:54
PROVIDERS: ATTEND Anesthesiology
DX: M48.061 Spinal stenosis, lumbar region without neurogenic claudication (principal); M54.16 Radiculopathy, lumbar region; M96.1 Postlaminectomy syndrome, not elsewhere classified; I11.0 Hypertensive heart disease with heart failure; I50.9 Heart failure, unspecified; Z88.0 Allergy status to penicillin; I25.10 Atherosclerotic heart disease of native coronary artery without angina pectoris; Z95.0 Presence of cardiac pacemaker; Z79.01 Long term (current) use of anticoagulants; N40.0 Benign prostatic hyperplasia without lower urinary tract symptoms; M10.9 Gout, unspecified; Z72.89 Other problems related to lifestyle; Z79.82 Long term (current) use of aspirin; Z79.899 Other long term (current) drug therapy; J44.9 Chronic obstructive pulmonary disease, unspecified; Z82.49 Family history of ischemic heart disease and other diseases of the circulatory system; I48.1 Persistent atrial fibrillation; Z96.653 Presence of artificial knee joint, bilateral; K70.30 Alcoholic cirrhosis of liver without ascites; Z82.3 Family history of stroke; F17.210 Nicotine dependence, cigarettes, uncomplicated
CPT/HCPCS: 63650; C1897; C1778

== ENCOUNTER → 2018-02-08 | Outpatient (CLI) | payer MEDICARE, OTHER | END | disposition home or self-care (01) | LOC: PNCL 13:23 | DX: M48.061 Spinal stenosis, lumbar region without neurogenic claudication (principal); M54.16 Radiculopathy, lumbar region | CPT/HCPCS: G0463 ==

== ENCOUNTER 2018-02-18 11:18 | Outpatient (CLI) | payer MEDICARE, OTHER ==
[2018-02-18 11:46] LABS: ADD MAN DIFF? NO
[2018-02-18 11:59] LABS: BASO % 1 % (0-3); EOS # 0.1 x10^3/uL (0.0-0.7); EOS % 1 % (0-3); HEMATOCRIT 39.7 % (39.0-53.0); HEMOGLOBIN 13.6 g/dL (13.0-17.5); LYMPH # 1.3 x10^3/uL (1.0-4.8); LYMPH % 18 % (24-48); MEAN CORPUSCULAR HEMOGLOBIN 32 pg (25-35); MEAN CORPUSCULAR HGB CONC 34 g/dL (31-37); MEAN CORPUSCULAR VOLUME 94 fL (79-100); MONO # 0.8 x10^3/uL (0.0-1.1); MONO % 11 % (0-9); NEUT # 4.7 x10^3uL (1.8-7.7); NEUT % 68 % (31-73); PLATELET COUNT 273 x10^3/uL (140-400); RED BLOOD COUNT 4.24 x10^6/uL (4.30-5.70); RED CELL DISTRIBUTION WIDTH 15.8 % (11.5-14.5)
[2018-02-18 12:08] LABS: INR 1.2 (0.8-1.1); PROTHROMBIN TIME PATIENT 14.4 SEC (11.7-14.0)
[2018-02-18] MEDS ORDERED: LIDOCAINE WITH 8.4% SOD BICARB 3 ML DISP.SYRIN. (12:25)
[2018-02-18] MEDS: LIDOCAINE WITH 8.4% SOD BICARB 3 ML DISP.SYRIN. IJ (12:30)
[2018-02-19 14:29] LABS: BODY FLUID LDH 54 IU/L (.)
== END 2018-02-18 14:55 | disposition home or self-care (01) ==
LOC: INTRAD 11:18
DX: J90 Pleural effusion, not elsewhere classified (principal); I25.10 Atherosclerotic heart disease of native coronary artery without angina pectoris; I48.91 Unspecified atrial fibrillation; Z79.01 Long term (current) use of anticoagulants; Z95.0 Presence of cardiac pacemaker; J44.9 Chronic obstructive pulmonary disease, unspecified; I11.0 Hypertensive heart disease with heart failure; I50.9 Heart failure, unspecified; N40.0 Benign prostatic hyperplasia without lower urinary tract symptoms; M10.9 Gout, unspecified; Z96.652 Presence of left artificial knee joint; Z72.89 Other problems related to lifestyle; F17.200 Nicotine dependence, unspecified, uncomplicated; Z88.0 Allergy status to penicillin; Z79.82 Long term (current) use of aspirin; Z79.899 Other long term (current) drug therapy
CPT/HCPCS: 32555; 36415; 71045; 83615; 84157; 85025; 85610; 88112; 88305

== ENCOUNTER → 2018-02-26 | Outpatient (CLI) | payer MEDICARE, OTHER ==
[2018-02-26] MEDS: GADOBUTROL 10 MMOL/10 ML VIAL IV (11:39)
== END | disposition home or self-care (01) ==
LOC: MRI 09:49
DX: J32.0 Chronic maxillary sinusitis (principal); I66.22 Occlusion and stenosis of left posterior cerebral artery; I11.0 Hypertensive heart disease with heart failure; I50.9 Heart failure, unspecified; I48.0 Paroxysmal atrial fibrillation; E87.6 Hypokalemia; J44.9 Chronic obstructive pulmonary disease, unspecified; I25.10 Atherosclerotic heart disease of native coronary artery without angina pectoris; Z82.49 Family history of ischemic heart disease and other diseases of the circulatory system; Z79.02 Long term (current) use of antithrombotics/antiplatelets; Z79.82 Long term (current) use of aspirin; Z96.653 Presence of artificial knee joint, bilateral
CPT/HCPCS: 70544; 70553; A9585

== ENCOUNTER → 2018-02-26 | Outpatient (CLI) | payer MEDICARE, OTHER ==
[2018-02-26] VITALS (14 sets, daily range): BP systolic 139–150; BP diastolic 80–88
[~2018-02-26] MED LIST changes: -LIDOCAINE 1% PF 2 ML VIAL. ONE
--- NOTE | 2018-02-26 11:46 | RAD ---
Neck MRA without contrast History: Dizziness Technique: [id number] MR angiography was performed of the neck. Comparison: None Findings: Determination of any degree of stenosis is based on NASCET criteria. There is motion degradation. There is antegrade flow bilateral vertebral arteries as well as common and internal carotid arteries. Allowing for motion on the noncontrast technique, no significant stenosis is identified of the cervical internal carotid arteries or the visualized common carotid arteries, origins not accurately evaluated due to signal loss and motion. Segments of vertebral arteries more distally are not visualized probably due to plane of blood flow on noncontrast exam. Proximal right vertebral artery is tortuous, difficult to accurately evaluate. Narrowing of the proximal vertebral arteries is difficult to exclude by this exam. Impression: 1. Exam is limited due to motion and lack of contrast as stated. No significant stenosis is identified of the cervical internal carotid arteries or visualized common carotid arteries. Electronically signed by: Mirza Harman MD (02/26/2018 11:43 AM) [id number]
== END | disposition home or self-care (01) ==
LOC: MRI 09:58
PROVIDERS: ATTEND Psychiatry & Neurology Neurology with Special Qualifications in Child Neurology
DX: R42 Dizziness and giddiness (principal); I11.0 Hypertensive heart disease with heart failure; I50.9 Heart failure, unspecified; E87.6 Hypokalemia; J44.9 Chronic obstructive pulmonary disease, unspecified; I48.1 Persistent atrial fibrillation; I25.10 Atherosclerotic heart disease of native coronary artery without angina pectoris; Z96.653 Presence of artificial knee joint, bilateral; Z95.0 Presence of cardiac pacemaker; Z79.02 Long term (current) use of antithrombotics/antiplatelets
CPT/HCPCS: 70547

== ENCOUNTER 2018-04-21 06:56 | Outpatient (CLI) | payer MEDICARE, OTHER ==
[~2018-04-21] VITALS: Ht 182.9 cm; Wt 90.7 kg
[~2018-04-21 06:56] MED LIST changes: -AMLO10TA2 PO; +AMLO10TA6 PO; -AMLO5TAB2 PO; +AMLO5TAB7 PO; -LOSA100T6 PO; +LOSA100T7 PO
[2018-04-21] MEDS ORDERED: SPIR50TA4 PO (07:10)
[2018-04-21 07:25] VITALS: BP 141/64
[2018-04-21 07:40] LABS: BASO % 1 % (0-3); EOS # 0.1 x10^3/uL (0.0-0.7); EOS % 2 % (0-3); HEMATOCRIT 40.9 % (39.0-53.0); HEMOGLOBIN 14.1 g/dL (13.0-17.5); LYMPH % 16 % (24-48); MEAN CORPUSCULAR HEMOGLOBIN 33 pg (25-35); MEAN CORPUSCULAR HGB CONC 35 g/dL (31-37); MEAN CORPUSCULAR VOLUME 95 fL (79-100); MONO # 0.8 x10^3/uL (0.0-1.1); MONO % 13 % (0-9); NEUT # 4.2 x10^3uL (1.8-7.7); NEUT % 69 % (31-73); PLATELET COUNT 215 x10^3/uL (140-400); RED CELL DISTRIBUTION WIDTH 16.1 % (11.5-14.5); WHITE BLOOD COUNT 6.1 x10^3/uL (4.0-11.0)
[2018-04-21 07:56] LABS: PROTHROMBIN TIME PATIENT 14.2 SEC (11.7-14.0)
[2018-04-21 09:09] VITALS: BP 138/68
[2018-04-21 09:20] VITALS: BP 131/62
[2018-04-21 09:35] VITALS: BP 127/63
[2018-04-21 09:50] VITALS: BP 128/61
[2018-04-21 10:20] VITALS: BP 116/56
--- NOTE | 2018-04-21 12:58 | RAD ---
Ultrasound-guided right-sided thoracentesis 04/21/2018 12:54 PM Indication: RECCURANT PLEURAL EFFUSION ON RT Procedure: Informed consent was obtained. A timeout procedure was performed. Sonographic evaluation of the right chest was performed demonstrating moderate pleural effusion. The right posterior chest was prepped and draped in sterile fashion. 1% lidocaine without epinephrine was administered for local anesthesia. Real-time ultrasonographic guidance was used in passing a 5 Egyptian DataRoboteh catheter into the right pleural space. 2.2 L of serosanguineous pleural fluid was removed. Samples of fluid were sent to the lab for further evaluation per ordering physician request. The catheter was removed and pressure held to achieve hemostasis. A sterile dressing was applied. No immediate complications were identified. The patient tolerated the procedure well. Impression: Right sided ultrasound-guided thoracentesis
--- NOTE | 2018-04-21 17:16 | RAD ---
AP chest. HISTORY: Post right thoracentesis AP view was taken of the chest. There's been a decrease in the right effusion compared to the study from February 20. There is no pneumothorax. There is right basilar atelectasis or infiltrate. Left lung is clear. Pacemaker is unchanged. IMPRESSION: 1. Decreased right effusion. 2. No pneumothorax. Electronically signed by: Carlos Cueva MD (04/21/2018 5:12 PM) [id number]
== END 2018-04-21 10:30 | disposition home or self-care (01) ==
LOC: INTRAD 06:56
PROVIDERS: ATTEND Family Medicine
DX: J90 Pleural effusion, not elsewhere classified (principal); Z88.0 Allergy status to penicillin
CPT/HCPCS: 32555; 36415; 71045; 85025; 85610

== ENCOUNTER 2018-07-05 06:58 | Outpatient (CLI) | payer MEDICARE, OTHER ==
[~2018-07-05] VITALS: Ht 182.9 cm; Wt 90.7 kg
[2018-07-05] VITALS (10 sets, daily range): BP systolic 110–138; BP diastolic 48–67
[~2018-07-05 06:58] MED LIST changes: +HYDR-2145 PO; -HYDR25TA9 PO; +LOSA100T14 PO; -LOSA100T7 PO; +SPIR50TA4 PO
[2018-07-05 07:45] LABS: BASO # 0.1 x10^3/uL (0.0-0.2); BASO % 1 % (0-3); EOS # 0.2 x10^3/uL (0.0-0.7); EOS % 3 % (0-3); HEMATOCRIT 39.2 % (39.0-53.0); HEMOGLOBIN 13.4 g/dL (13.0-17.5); LYMPH # 0.6 x10^3/uL (1.0-4.8); LYMPH % 10 % (24-48); MEAN CORPUSCULAR HEMOGLOBIN 33 pg (25-35); MEAN CORPUSCULAR HGB CONC 34 g/dL (31-37); MEAN CORPUSCULAR VOLUME 96 fL (79-100); MONO # 0.9 x10^3/uL (0.0-1.1); MONO % 14 % (0-9); NEUT # 4.7 x10^3uL (1.8-7.7); NEUT % 73 % (31-73); PLATELET COUNT 274 x10^3/uL (140-400); RED BLOOD COUNT 4.08 x10^6/uL (4.30-5.70); RED CELL DISTRIBUTION WIDTH 15.6 % (11.5-14.5); WHITE BLOOD COUNT 6.5 x10^3/uL (4.0-11.0)
[2018-07-05 07:59] LABS: PROTHROMBIN TIME PATIENT 14.9 SEC (11.7-14.0)
--- NOTE | 2018-07-05 09:36 | RAD ---
Ultrasound-guided right-sided thoracentesis 07/05/2018 9:32 AM Indication: RIGHT PLEURAL EFFUSION Procedure: Informed consent was obtained. A timeout procedure was performed. Sonographic evaluation of the right chest was performed demonstrating moderate pleural effusion. The right posterior chest was prepped and draped in sterile fashion. 1% lidocaine without epinephrine was administered for local anesthesia. Real-time ultrasonographic guidance was used in passing a 5 [place] FX Alignedeh catheter into the right pleural space. 2.2 L of serosanguineous pleural fluid was removed. Samples of fluid were sent to the lab for further evaluation per ordering physician request. The catheter was removed and pressure held to achieve hemostasis. A sterile dressing was applied. No immediate complications were identified. The patient tolerated the procedure well. Impression: Right sided ultrasound-guided thoracentesis
--- NOTE | 2018-07-05 10:08 | RAD ---
CHEST AP ONLY Clinical indications: POST THORACENTESIS COMPARISON: April 21, 2018. Findings: A moderate-sized right-sided pleural effusion is evident. Associated compressive atelectasis or infiltrate of the right lung base is again evident. Mild atelectasis of the medial left lung base is seen. No pneumothorax is seen. The heart size, pulmonary vasculature, mediastinum and both chayo are stable. Impression: No pneumothorax after thoracentesis. Moderate-sized right-sided pleural effusion and associated right lung base compressive atelectasis or infiltrate. Electronically signed by: Antolin Woods MD (07/05/2018 10:04 AM) [facility]
== END 2018-07-05 10:23 | disposition home or self-care (01) ==
LOC: INTRAD 06:58
PROVIDERS: ATTEND Family Medicine
DX: J90 Pleural effusion, not elsewhere classified (principal); F17.210 Nicotine dependence, cigarettes, uncomplicated; Z88.0 Allergy status to penicillin; Z79.899 Other long term (current) drug therapy
CPT/HCPCS: 32555; 36415; 71045; 85025; 85610

== ENCOUNTER → 2018-07-29 | Outpatient (CLI) | payer MEDICARE, OTHER ==
[2018-07-05 10:20] VITALS: BP 120/58
--- NOTE | 2018-07-29 08:24 | RAD ---
EXAM: Abdomen sonogram. HISTORY: Pain and weight loss. TECHNIQUE: Sonographic imaging of the abdomen was performed. COMPARISON: None. FINDINGS: The liver is normal in size. No focal hepatic lesion is seen. The common bile duct is normal in caliber. There is a 4 mm nonmobile echogenic lesion without posterior shadowing along the gallbladder wall, likely a polyp. The gallbladder is otherwise unremarkable. The pancreas is obscured due to bowel gas. The right kidney and inferior vena cava are unremarkable. There is a large right pleural effusion. IMPRESSION: 1. Suspected small gallbladder polyp. 2. Obscured pancreas due to bowel gas. 3. Right pleural effusion. Electronically signed by: Lavonne Williamson MD (07/29/2018 8:20 AM) [facility]
== END | disposition home or self-care (01) ==
LOC: US 06:37
PROVIDERS: ATTEND Internal Medicine Gastroenterology
DX: R10.9 Unspecified abdominal pain (principal); R63.4 Abnormal weight loss; J90 Pleural effusion, not elsewhere classified
CPT/HCPCS: 76705

== ENCOUNTER 2018-09-09 07:03 | Outpatient (CLI) | payer MEDICARE, OTHER ==
[2018-09-09] VITALS (7 sets, daily range): BP systolic 111–122; BP diastolic 55–67
[~2018-09-09] VITALS: Ht 182.9 cm; Wt 88.5 kg
[~2018-09-09 07:03] MED LIST changes: -AMLO10TA6 PO; +AMLO10TA8 PO; +AMLO5TAB10 PO; -AMLO5TAB7 PO
[2018-09-09 07:33] LABS: BASO % 1 % (0-3); EOS # 0.2 x10^3/uL (0.0-0.7); EOS % 3 % (0-3); HEMATOCRIT 38.2 % (39.0-53.0); HEMOGLOBIN 12.8 g/dL (13.0-17.5); LYMPH # 0.7 x10^3/uL (1.0-4.8); LYMPH % 12 % (24-48); MEAN CORPUSCULAR HEMOGLOBIN 33 pg (25-35); MEAN CORPUSCULAR HGB CONC 34 g/dL (31-37); MEAN CORPUSCULAR VOLUME 97 fL (79-100); MONO # 0.7 x10^3/uL (0.0-1.1); MONO % 11 % (0-9); NEUT # 4.5 x10^3uL (1.8-7.7); NEUT % 74 % (31-73); PLATELET COUNT 252 x10^3/uL (140-400); RED BLOOD COUNT 3.93 x10^6/uL (4.30-5.70); RED CELL DISTRIBUTION WIDTH 15.2 % (11.5-14.5); WHITE BLOOD COUNT 6.1 x10^3/uL (4.0-11.0)
[2018-09-09] MEDS ORDERED: METO25TA4 PO (07:35)
[2018-09-09] MEDS ORDERED: METO50TA6 PO (07:35)
[2018-09-09 07:50] LABS: PROTHROMBIN TIME PATIENT 14.8 SEC (11.7-14.0)
--- NOTE | 2018-09-09 09:17 | RAD ---
Ultrasound-guided right-sided thoracentesis 09/09/2018 9:13 AM Indication: RIGHT PLEURAL EFFUSION Procedure: Informed consent was obtained. A timeout procedure was performed. Sonographic evaluation of the right chest was performed demonstrating moderate pleural effusion. The right posterior chest was prepped and draped in sterile fashion. 1% lidocaine without epinephrine was administered for local anesthesia. Real-time ultrasonographic guidance was used in passing a 5 Arabic Yueh catheter into the right pleural space. 2.2 L of serous pleural fluid was removed. Samples of fluid were sent to the lab for further evaluation per ordering physician request. The catheter was removed and pressure held to achieve hemostasis. A sterile dressing was applied. No immediate complications were identified. The patient tolerated the procedure well. Impression: Right sided ultrasound-guided thoracentesis
--- NOTE | 2018-09-09 13:07 | NUR ---
Pt discharged home. VSS. Pt denies any pain or SOB. Dr. Garcia spoke with pt regarding his second cxr. Discharge instructions reviewed with pt and copy given to take home. Reviewed signs and symptoms of need to call EMS or go to ER. Pt walked to ER entrance.
--- NOTE | 2018-09-09 13:26 | RAD ---
Portable chest, 09/09/2018, 9:47 AM: HISTORY: Status post right thoracentesis Comparison is made to a study from 07/05/2018. There is a moderate right basilar opacity compatible with residual pleural fluid and moderate underlying atelectasis/infiltrate. A similar appearance was present on the previous study. There is a small right apical pneumothorax. The left chest remains clear. No left-sided pleural fluid is seen. The heart is within normal limits in size. A left-sided transvenous pacemaker remains in place. IMPRESSION: 1. Moderate residual right pleural effusion with underlying right basilar atelectasis/infiltrate. 2. Small right pneumothorax. Electronically signed by: Hua Rosales MD (09/09/2018 1:23 PM) [facility]
--- NOTE | 2018-09-09 13:29 | RAD ---
Portable chest, 09/09/2018, 12:01 PM: HISTORY: Follow-up pneumothorax Comparison is made to a study from earlier the same day. The heart size is normal. There is a moderate unchanged right basilar opacity compatible with residual pleural fluid and underlying atelectasis/infiltrate. There is a small right pneumothorax, similar to that seen earlier in the day. There is a small right inferolateral component which is better visualized on the current exam, as well as a small component extending over the right apex. Mild left basilar atelectasis has developed. No left-sided pleural fluid or pneumothorax is evident. IMPRESSION: 1. Stable small right pneumothorax. 2. Unchanged pleural fluid and moderate underlying atelectasis/infiltrate in the right lower chest. Electronically signed by: Hua Rosales MD (09/09/2018 1:26 PM) [facility]
[2018-09-23] MEDS ORDERED: SPIR50TA4 PO (15:34)
[2018-10-08] MEDS ORDERED: AMLO5TAB10 PO (16:12)
[2018-10-08] MEDS ORDERED: LOSA-73 PO (16:12)
== END 2018-09-09 13:05 | disposition home or self-care (01) ==
LOC: INTRAD 07:03
PROVIDERS: ATTEND Family Medicine
DX: J90 Pleural effusion, not elsewhere classified (principal); J44.9 Chronic obstructive pulmonary disease, unspecified; Z88.0 Allergy status to penicillin
CPT/HCPCS: 32555; 36415; 71045; 85025; 85610

== ENCOUNTER → 2018-10-26 | Outpatient (CLI) | payer MEDICARE, OTHER ==
[2018-10-08 10:46] VITALS: BP 107/57
[~2018-10-26] MED LIST changes: +LOSA-73 PO; +METO25TA4 PO; +METO50TA6 PO
--- NOTE | 2018-10-26 16:41 | RAD ---
EXAM: PA and Lateral Views of the Chest DATE: 10/26/2018 12:00 AM INDICATION: 1 month post thoracotomy COMPARISON: 10/08/2018, 10/07/2018 FINDINGS/ IMPRESSION: Tommy generator pack obscures a portion of the left chest with single lead in stable position. The heart is not enlarged. Mediastinal and hilar contours are stable. Atherosclerotic calcifications of the tortuous aorta are seen. Chronic parenchymal opacities in the right lung have mildly progressed with background of interstitial opacities/thickening. The right-sided parenchymal opacities have increased compared to prior 10/08/2018. Small right pleural effusion. No pneumothorax. Electronically signed by: Todd Sorto MD (10/26/2018 4:38 PM) [id number]
== END | disposition home or self-care (01) ==
LOC: RAD 11:46
PROVIDERS: ATTEND Thoracic Surgery (Cardiothoracic Vascular Surgery)
DX: Z09 Encounter for follow-up examination after completed treatment for conditions other than malignant neoplasm (principal); J90 Pleural effusion, not elsewhere classified; I70.0 Atherosclerosis of aorta; R91.8 Other nonspecific abnormal finding of lung field; Z98.890 Other specified postprocedural states
CPT/HCPCS: 71046

== ENCOUNTER 2019-06-03 18:00 | Emergency (ER) | payer MEDICARE, OTHER ==
[~2019-06-03] VITALS: Ht 182.9 cm; Wt 88.9 kg
--- NOTE | 2019-06-03 18:37 | PHYS DOC ---
Past Medical History Past Medical History: A-Fib, COPD, Hypertension, Other Additional Past Medical Histor: CIRRHOSIS Past Surgical History: Pacemaker, Other Additional Past Surgical Histo: BACK,KNEES,NECK,THROAT Alcohol Use: Heavy Drug Use: None Adult General Chief Complaint Chief Complaint: ABNORMAL LABS [facility] HPI 78-year-old male presents to emergency department with complaints of abnormal laboratory values. Patient states he had labs drawn on Thursday or Thursday with his primary care physician for routine check up. He'll call today for elevation of potassium, low sodium. Patient was told to come to the emergency department for further evaluation. Patient denies any complaints at this time. Denies any chest pain, shortness breath, nausea, vomiting, abdominal pain, headache, visual change. All other ROS negative unless documented in HPI Review of Systems Review of Systems See Above Allergies Allergies Allergies Coded Allergies Type Severity Reaction Last Updated Verified Penicillins Allergy Intermediate Rash 09/27/18 Yes Physical Exam Physical Exam Constitutional: Well developed, well nourished, no acute distress, non-toxic appearance. [] HENT: Normocephalic, atraumatic, bilateral external ears normal, oropharynx moist, no oral exudates, nose normal. [] Eyes: PERRLA, EOMI, conjunctiva normal, no discharge. [] Cardiovascular:Heart rate regular rhythm, no murmur [] Lungs & Thorax: Bilateral breath sounds clear to auscultation [] Abdomen: Bowel sounds normal, soft, no tenderness, no masses, no pulsatile masses. [] Skin: Warm, dry, no erythema, no rash. [] Back: No tenderness, no CVA tenderness. [] Extremities: No tenderness, no edema. [] Neurologic: Alert and oriented X 3, no focal deficits noted. [] Psychologic: Affect normal, judgement normal, mood normal. [] Current Patient Data Vital Signs Vital Signs Date Time Temp Pulse Resp B/P (MAP) Pulse Ox O2 Delivery O2 Flow Rate FiO2 06/03/19 18:55 98.2 60 16 141/63 (89) 97 Room Air 98.2 Lab Values Laboratory Tests Test 06/03/19 19:20 White Blood Count 7.2 x10^3/uL (4.0-11.0) Red Blood Count 3.52 x10^6/uL (4.30-5.70) L Hemoglobin 11.8 g/dL (13.0-17.5) L Hematocrit 34.7 % (39.0-53.0) L Mean Corpuscular Volume 99 fL (79-100) Mean Corpuscular Hemoglobin 34 pg (25-35) Mean Corpuscular Hemoglobin Concent 34 g/dL (31-37) Red Cell Distribution Width 15.0 % (11.5-14.5) H Platelet Count 187 x10^3/uL (140-400) Neutrophils (%) (Auto) 77 % (31-73) H Lymphocytes (%) (Auto) 9 % (24-48) L Monocytes (%) (Auto) 11 % (0-9) H Eosinophils (%) (Auto) 2 % (0-3) Basophils (%) (Auto) 1 % (0-3) Neutrophils # (Auto) 5.6 x10^3/uL (1.8-7.7) Lymphocytes # (Auto) 0.7 x10^3/uL (1.0-4.8) L Monocytes # (Auto) 0.8 x10^3/uL (0.0-1.1) Eosinophils # (Auto) 0.1 x10^3/uL (0.0-0.7) Basophils # (Auto) 0.0 x10^3/uL (0.0-0.2) Sodium Level 135 mmol/L (136-145) L Potassium Level 5.3 mmol/L (3.5-5.1) H Chloride Level 103 mmol/L (98-107) Carbon Dioxide Level 25 mmol/L (21-32) Anion Gap 7 (6-14) Blood Urea Nitrogen 33 mg/dL (8-26) H Creatinine 1.3 mg/dL (0.7-1.3) Estimated GFR (Cockcroft-Gault) 53.7 BUN/Creatinine Ratio 25 (6-20) H Glucose Level 82 mg/dL (70-99) Calcium Level 9.1 mg/dL (8.5-10.1) Total Bilirubin 0.6 mg/dL (0.2-1.0) Aspartate Amino Transferase (AST) 17 U/L (15-37) Alanine Aminotransferase (ALT) 18 U/L (16-63) Alkaline Phosphatase 58 U/L (46-116) Total Protein 6.7 g/dL (6.4-8.2) Albumin 3.3 g/dL (3.4-5.0) L Albumin/Globulin Ratio 1.0 (1.0-1.7) Laboratory Tests 06/03/19 19:20 Laboratory Tests 06/03/19 19:20 EKG EKG EKG reviewed, heart rate 84, left axis deviation no evidence of ST elevation DE appreciated, and interpretation time 1920 nonurgent[] Radiology/Procedures Radiology/Procedures [] Course & Med Decision Making Course & Med Decision Making Pertinent Labs and Imaging studies reviewed. (See chart for details) [] 78-year-old male presents to emergency department with complaints of abnormal laboratory values. Patient states he had labs drawn on Thursday or Thursday with his primary care physician for routine check up. He'll call today for elevation of potassium, low sodium. Patient was told to come to the emergency department for further evaluation. Patient denies any complaints at this time. Denies any chest pain, shortness breath, nausea, vomiting, abdominal pain, headache, visual change. Labs reviewed, sodium 135, potassium 5.3 upper limits of normal 5.1. Would kalpesh mmend DC home, will hold losartan over the weekend recommend resuming on Thursday patient states he has a follow-up appointment on Thursday with Dr. Anglin. No treatment plan at this time. EKG without acute process identified Dragon Disclaimer Rosemarieon Disclaimer This electronic medical record was generated, in whole or in part, using a voice recognition dictation system. Departure Departure Impression: Primary Impression: Bradycardia Additional Impression: Hyperkalemia Disposition: HOME, SELF-CARE Condition: STABLE Referrals: Morales ANGLIN MD (PCP) Patient Instructions: Hyperkalemia, [id number] Additional Instructions: Recommend follow up with PCP 3 - 5 days Return to the ER with worsening symptoms, intractable pain, fever, altered mental status Tylenol/Motrin as needed for pain Hold LOSARTAN over the weekend - resume THURSDAY, keep follow up appointment for THURSDAY as scheduled Problem Qualifiers ILDA RFITZ MD Jun 03, 2019 18:37
[2019-06-03 19:28] VITALS: BP 144/66
[2019-06-03 19:32] LABS: BASO % 1 % (0-3); EOS # 0.1 x10^3/uL (0.0-0.7); EOS % 2 % (0-3); HEMATOCRIT 34.7 % (39.0-53.0); HEMOGLOBIN 11.8 g/dL (13.0-17.5); LYMPH # 0.7 x10^3/uL (1.0-4.8); LYMPH % 9 % (24-48); MEAN CORPUSCULAR HEMOGLOBIN 34 pg (25-35); MEAN CORPUSCULAR HGB CONC 34 g/dL (31-37); MEAN CORPUSCULAR VOLUME 99 fL (79-100); MONO # 0.8 x10^3/uL (0.0-1.1); MONO % 11 % (0-9); NEUT # 5.6 x10^3/uL (1.8-7.7); NEUT % 77 % (31-73); PLATELET COUNT 187 x10^3/uL (140-400); RED BLOOD COUNT 3.52 x10^6/uL (4.30-5.70); WHITE BLOOD COUNT 7.2 x10^3/uL (4.0-11.0)
[2019-06-03 19:41] LABS: CALCIUM 9.1 mg/dL (8.5-10.1); CREATININE 1.3 mg/dL (0.7-1.3); GFR 53.7; POTASSIUM 5.3 mmol/L (3.5-5.1)
[2019-06-03 19:48] LABS: ALBUMIN 3.3 g/dL (3.4-5.0); TOTAL BILIRUBIN 0.6 mg/dL (0.2-1.0); TOTAL PROTEIN 6.7 g/dL (6.4-8.2)
--- NOTE | 2019-06-04 04:33 | EKG ---
[facility] [address] [place] [address] Test Date: 2019-06-03 Test Time: 19:19:34 Pat Name: TRUDY VALADEZ Department: Room: Gender: M Shift Mechanic: : 1940 Requested By: ILDA FRITZ Order Number: [id number] Reading MD: Measurements Intervals [place] Rate: 83 P: [place]: QRS: 0 QRSD: 88 T: -79 QT: 418 QTc: 497 Interpretive Statements ATRIAL FIBRILLATION VENTRICULAR PREMATURE COMPLEX(ES) INDETERMINATE AXIS LOW VOLTAGE CONSIDER LEFT VENTRICULAR HYPERTROPHY QRS(T) CONTOUR ABNORMALITY CANNOT RULE OUT INFERIOR MYOCARDIAL DAMAGE ST ABNORMALITY, POSSIBLE ANTERIOR SUBENDOCARDIAL INJURY PROLONGED QT ABNORMAL ECG No previous ECG available for comparison
== END 2019-06-03 20:04 | disposition home or self-care (01) ==
LOC: ER 18:00
DX: E87.5 Hyperkalemia (principal); R00.1 Bradycardia, unspecified; I48.91 Unspecified atrial fibrillation; J44.9 Chronic obstructive pulmonary disease, unspecified; I10 Essential (primary) hypertension; F10.20 Alcohol dependence, uncomplicated; Z88.0 Allergy status to penicillin; Y90.9 Presence of alcohol in blood, level not specified
CPT/HCPCS: 36415; 80053; 85025; 93005; 99285-25

== ENCOUNTER → 2019-08-03 | Outpatient (CLI) | payer MEDICARE, OTHER ==
--- NOTE | 2019-08-03 14:40 | RAD ---
EXAM: Abdomen sonogram. HISTORY: Cirrhosis. TECHNIQUE: Sonographic imaging of the abdomen was performed. COMPARISON: 10/07/2018. FINDINGS: The liver is normal in size. No focal hepatic lesion is seen. There is gallbladder wall thickening. This measures 7 mm. There is a nonmobile echogenic lesion within the gallbladder which may be a polyp or nonmobile stone, measuring 4 mm. The common bile duct is normal in caliber. The pancreas, aorta and inferior vena cava are predominantly obscured due to bowel gas. The spleen is normal in size. The kidneys are normal in size. There is a small right renal cyst measuring 1.4 cm. IMPRESSION: 1. Gallbladder wall thickening. This can be due to intrinsic liver disease or cholecystitis. Correlate with symptomatology. There is a 4 mm nonmobile gallstone or polyp along the gallbladder wall. 2. No suspicious hepatic lesion. 3. Small right renal cyst. 4. Limited exam due to bowel gas. Electronically signed by: Lavonne Williamson MD (08/03/2019 2:37 PM) [facility]
== END | disposition home or self-care (01) ==
LOC: US 07:17
PROVIDERS: ATTEND Internal Medicine Gastroenterology
DX: N28.1 Cyst of kidney, acquired (principal); K82.8 Other specified diseases of gallbladder
CPT/HCPCS: 76700

== ENCOUNTER → 2019-09-22 | Outpatient (CLI) | payer MEDICARE, OTHER ==
--- NOTE | 2019-09-22 09:11 | CARD ---
MR#: [id number] Date of Study: 09/22/2019 Ordering Physician: SHIRLEY DODGE, Referring Physician: SHIRLEY DODGE, Tech: Tiffanie Beal [facility] APPROVED REPORT EXAM: Two-dimensional and M-mode echocardiogram with Doppler and color Doppler. Other Information Quality : AverageHR: 52bpm INDICATION Atrial Fibrillation RISK FACTORS Hypertension Diabetes pacemaker 2D DIMENSIONS RVDd4.7 (2.9-3.5cm)IVSd1.3 (0.7-1.1cm) Aortic Root(2D)3.3 (2.0-3.7cm)LVDd5.6 (3.9-5.9cm) LVOT Diameter2.0 (1.8-2.4cm)PWd1.2 (0.7-1.1cm) LVDs4.6 (2.5-4.0cm)FS (%) 18.1 % SV56.4 mlLVEF(%)37.1 (>50%) Aortic Valve AoV Peak Ambrocio.119.1cm/Landon Peak GR.5.7mmHg LVOT Peak Ambrocio.51.7cm/sAVA (VMAX)1.37cm2 Mitral Valve MV E Kartcxqe024.0cm/sMV DECEL CANO113ze MV A Nwjxanno87.7cm/sE/A Ratio3.2 MV A Pndrjbni841cl Pulmonary Valve PV Peak Hkhlanvl88.6cm/s Tricuspid Valve TR P. Wuuckpns132yr/sRAP SDROHXGV7hrPf TR Peak Gr.72phYcEVBU10yuQi LEFT VENTRICLE The Left Ventricle is borderline dilated. There is mild concentric left ventricular hypertrophy. The systolic function is moderately impaired. The Ejection Fraction is 40%. Septal motion consistent with conduction abnormality. Mild to moderate global hypokinesis. Tissue Doppler imaging reveals moderate left ventricular diastolic dysfunction. There is no ventricular septal defect visualized. RIGHT VENTRICLE The right ventricle is mildly dilated. The right ventricular systolic function is normal. ATRIA The left atrium is severely dilated. The right atrium is severely dilated. A pacemaker is seen in the right atrium consistent with history. The interatrial septum is intact with no evidence for an atria l septal defect or patent foramen ovale as noted on 2-D or Doppler imaging. AORTIC VALVE The aortic valve is mildly sclerotic. Doppler and Color Flow revealed no significant aortic regurgita tion. There is no significant aortic valvular stenosis. MITRAL VALVE Mitral annular calcification is mild. There is no evidence of mitral valve prolapse. There is no mitr al valve stenosis. Doppler and Color-flow revealed mild mitral regurgitation. TRICUSPID VALVE The tricuspid valve is normal in structure and function. Doppler and Color Flow revealed mild tricusp id regurgitation. PA pressure is estimated at 39 mmHg. There is no tricuspid valve stenosis. PULMONIC VALVE Doppler and Color Flow revealed trace pulmonic valvular regurgitation. There is no pulmonic valvular stenosis. GREAT VESSELS The aortic root is normal in size. The ascending aorta is normal in size. The IVC is normal in size a nd collapses >50% with inspiration. PERICARDIAL EFFUSION There is no pleural effusion. There is no evidence of significant pericardial effusion. Critical Notification Critical Value: No <Conclusion> The systolic function is moderately impaired. The Ejection Fraction is 40%. Septal motion consistent with conduction abnormality. Mild to moderate global hypokinesis. Tissue Doppler imaging reveals moderate left ventricular diastolic dysfunction. The right atrium is severely dilated. A pacemaker is seen in the right atrium consistent with history . Doppler and Color Flow revealed mild tricuspid regurgitation. PA pressure is estimated at 39 mmHg. Signed by : Shirley Dodge, Electronically Approved : 09/22/2019 09:11:11
--- NOTE | 2019-09-22 09:29 | RAD ---
MR#: [id number] Date of Study: 09/22/2019 Ordering Physician: SHIRLEY DODGE, Referring Physician: SHIRLEY DODGE, Tech: Sonia Vincent RVT,BHARATI APPROVED REPORT Patient Location: OUT-PATIENT Indications Claudication: PAD Risk Factors Hypertension VELOCITY AND DOPPLER WAVEFORM ANALYSIS RIGHT cm/secWaveformSeverity LEFT cm/secWaveform Severity pCFA 163.1TriphasicpCFA 149.3Triphasic Prof Fem Art. 54.1BiphasicProf Fem Art. 78.4Biphasic Fem Art Prox. 97.6BiphasicFem Art Prox. 111.6Biphasic Fem Art Mid. 78.1BiphasicFem Art Mid. 100.0Biphasic Fem Art Dist. 85.0BiphasicFem Art Dist. 91.3Biphasic Pop Art(Fossa) 49.6BiphasicPop Art(AK) 52.1Biphasic FOOD EXPEDITOR Prox. 90.0BiphasicPTA Prox. 57.3Biphasic FOOD EXPEDITOR Dist. 91.3BiphasicPTA Dist. 71.0Biphasic Per Art Mid. 30.0BiphasicPer Art Mid. Per Art Dist.Per Art Dist.59.7Biphasic MARCELINO Dist. 56.9BiphasicATA Dist. 57.8Biphasic DPA 47BiphasicDPA 59Biphasic Findings Bilateral lower extremity grayscale images of the arterial vessels demonstrate moderate diffuse adven titial plaque but no focal intraluminal stenosis. Spectral waveforms and color Doppler and velocities are within normal limits throughout the lower ext remity arteries. Mostly triphasic and biphasic waveforms are noted with three-vessel runoff below the knee. Critical Notification Critical Value: No <Conclusion> 1. No significant lower extremity arterial disease bilaterally. Signed by : Shirley Dodge, Electronically Approved : 09/22/2019 09:29:14
== END | disposition home or self-care (01) ==
LOC: ECHO 07:46
PROVIDERS: ATTEND Internal Medicine Cardiovascular Disease
DX: I08.3 Combined rheumatic disorders of mitral, aortic and tricuspid valves (principal); I70.203 Unspecified atherosclerosis of native arteries of extremities, bilateral legs; I11.9 Hypertensive heart disease without heart failure; E11.9 Type 2 diabetes mellitus without complications; I48.21 Permanent atrial fibrillation; Z95.0 Presence of cardiac pacemaker
CPT/HCPCS: 93306; 93925

== ENCOUNTER 2019-10-11 04:48 | Inpatient (IN) | payer MEDICARE, OTHER ==
[~2019-10-11] VITALS: Ht 182.9 cm; Wt 88.4 kg
[2019-10-11] MEDS ORDERED: FUROSEMIDE 40 MG/4 ML VIAL. ONE (05:05)
--- NOTE | 2019-10-11 05:14 | PHYS DOC ---
Past Medical History Past Medical History: A-Fib, COPD, Hypertension, Other Additional Past Medical Histor: CIRRHOSIS Past Surgical History: Pacemaker, Other Additional Past Surgical Histo: BACK,KNEES,NECK,THROAT Smoking Status: Current Every Day Smoker Alcohol Use: Heavy Drug Use: None Date and Time of Reassessment Date: Sep 30, 2018 Time: 05:58 Fluid Challenge Is the fluid challenge complet: No IBW Target Volume Used: No BMI > 30: Yes Vital Signs Vital Signs: Vital Signs Date Time Temp Pulse Resp B/P (MAP) Pulse Ox O2 Delivery O2 Flow Rate FiO2 10/11/19 04:55 102.0 101 28 194/86 (122) 77 Room Air 102.0 Temperature Source: Rectal Respirations Respiratory Effort: Shortness of breath Respiratory Pattern: Tachypnea Cardiovascular Pulse Rhythm: Regular Heart: S1 and S2 normal Lung Sounds Breath Sounds: Crackles, Diminished Capillary Refil Capillary Refill: Rt Hand > 3 seconds Peripheral Pulse Pulse Location: Monitor Pulse Strength: Normal (2+) Pulse Assessment Method: Monitor Adult General Chief Complaint Chief Complaint: SHORTNESS OF BREATH HPI HPI 79-year-old male presents to the emergency department complaints of shortness of breath/moderate respiratory distress. Patient has underlying history of atrial fibrillation, COPD, hypertension, pacemaker placement. Patient states he started having shortness of breath yesterday afternoon subsequently worsening overnight. Patient describes cough however nonproductive. He denies any fever. Patient describes lower extremity edema of which is chronic. Patient does state he has a history of pleural effusions requiring surgical intervention in the past. Patient has any headache or visual change, nausea or vomiting. Nothing makes his symptoms worse, nothing makes his symptoms better. Patient denies chest pain. Review of Systems Review of Systems Constitutional: Denies fever or chills [] HENT: Congestion Respiratory: Cough, shortness of breath Cardiovascular: No additional information not addressed in HPI [] GI: Denies abdominal pain, nausea, vomiting, bloody stools or diarrhea [] : Denies dysuria or hematuria [] Musculoskeletal: Denies back pain or joint pain [] Integument: Denies rash or skin lesions [] Neurologic: Denies headache, focal weakness or sensory changes [] All other systems were reviewed and found to be within normal limits, except as documented in this note. Current Medications Current Medications Current Medications Medications (Trade) Dose Ordered Sig/Karime Start Time Stop Time Status Last Admin Dose Admin Acetaminophen (Tylenol Supp) 650 mg STK-MED ONCE 10/11/19 05:17 10/11/19 05:17 DC Albuterol/ Ipratropium (Duoneb) 3 ml RTQID 10/11/19 08:00 10/12/19 07:59 Furosemide (Lasix) 60 mg 1X ONCE 10/11/19 06:00 10/11/19 06:01 DC 10/11/19 05:43 60 MG Levofloxacin/ Dextrose 150 ml @ 100 mls/hr 1X ONCE 10/11/19 05:30 10/11/19 06:59 UNV Methylprednisolone Sodium Succinate (SOLU-Medrol 125MG VIAL) 125 mg 1X ONCE 10/11/19 05:30 10/11/19 05:31 DC 10/11/19 05:30 125 MG Morphine Sulfate (Morphine Sulfate) 2 mg PRN Q2HR PRN 10/11/19 06:00 10/12/19 05:59 Ondansetron HCl (Zofran) 4 mg PRN Q8HRS PRN 10/11/19 06:00 10/12/19 05:59 Vancomycin HCl (Vanco Per Pharmacy) 1 each PRN DAILY PRN 10/11/19 06:15 Vancomycin HCl 2 gm/Sodium Chloride 500 ml @ 250 mls/hr 1X ONCE 10/11/19 06:30 10/11/19 08:29 Allergies Allergies Allergies Coded Allergies Type Severity Reaction Last Updated Verified Penicillins Allergy Intermediate Rash 09/27/18 Yes Physical Exam Physical Exam Constitutional: Well developed, moderate respiratory distress, ill-appearing HENT: Normocephalic, atraumatic, bilateral external ears normal, oropharynx moist, no oral exudates, nose normal. [] Eyes: PERRLA, EOMI, conjunctiva normal, no discharge. [] Cardiovascular:Heart rate regular rhythm, no murmur [] Lungs & Thorax: Bilateral crackles appreciated posteriorly, tachypnea, accessory use Abdomen: Bowel sounds normal, soft, no tenderness, no masses, no pulsatile masses. [] Skin: Warm, dry, no erythema, no rash. [] Back: No tenderness, no CVA tenderness. [] Extremities: Tender to palpation bilateral lower extremities, 2+ edema bilateral lower extremities Neurologic: Alert and oriented X 3, no focal deficits noted. [] Psychologic: Affect normal, judgement normal, mood normal. [] Current Patient Data Vital Signs Vital Signs Date Time Temp Pulse Resp B/P (MAP) Pulse Ox O2 Delivery O2 Flow Rate FiO2 10/11/19 04:55 102.0 101 28 194/86 (122) 77 Room Air 102.0 Lab Values Laboratory Tests Test 10/11/19 05:03 10/11/19 05:20 10/11/19 05:26 White Blood Count 7.3 x10^3/uL (4.0-11.0) Red Blood Count 4.04 x10^6/uL (4.30-5.70) L Hemoglobin 12.5 g/dL (13.0-17.5) L Hematocrit 37.1 % (39.0-53.0) L Mean Corpuscular Volume 92 fL (79-100) Mean Corpuscular Hemoglobin 31 pg (25-35) Mean Corpuscular Hemoglobin Concent 34 g/dL (31-37) Red Cell Distribution Width 17.9 % (11.5-14.5) H Platelet Count 252 x10^3/uL (140-400) Neutrophils (%) (Auto) 90 % (31-73) H Lymphocytes (%) (Auto) 5 % (24-48) L Monocytes (%) (Auto) 5 % (0-9) Eosinophils (%) (Auto) 0 % (0-3) Basophils (%) (Auto) 1 % (0-3) Neutrophils # (Auto) 6.6 x10^3/uL (1.8-7.7) Lymphocytes # (Auto) 0.4 x10^3/uL (1.0-4.8) L Monocytes # (Auto) 0.3 x10^3/uL (0.0-1.1) Eosinophils # (Auto) 0.0 x10^3/uL (0.0-0.7) Basophils # (Auto) 0.0 x10^3/uL (0.0-0.2) Platelet Estimate Pending Sodium Level 139 mmol/L (136-145) Potassium Level 4.2 mmol/L (3.5-5.1) Chloride Level 102 mmol/L (98-107) Carbon Dioxide Level 28 mmol/L (21-32) Anion Gap 9 (6-14) Blood Urea Nitrogen 16 mg/dL (8-26) Creatinine 1.0 mg/dL (0.7-1.3) Estimated GFR (Cockcroft-Gault) 72.5 BUN/Creatinine Ratio 16 (6-20) Glucose Level 124 mg/dL (70-99) H Lactic Acid Level 2.1 mmol/L (0.4-2.0) H Calcium Level 9.0 mg/dL (8.5-10.1) Total Bilirubin 1.5 mg/dL (0.2-1.0) H Aspartate Amino Transferase (AST) 28 U/L (15-37) Alanine Aminotransferase (ALT) 31 U/L (16-63) Alkaline Phosphatase 98 U/L (46-116) Troponin I Quantitative < 0.017 ng/mL (0.000-0.055) QF-Enl-N-Type Natriuretic Peptide 6582 pg/mL (0-449) H Total Protein 6.6 g/dL (6.4-8.2) Albumin 3.4 g/dL (3.4-5.0) Albumin/Globulin Ratio 1.1 (1.0-1.7) O2 Saturation 98 % (92-99) Arterial Blood pH Pending Arterial Blood pH (Temp corrected) 7.43 Arterial Blood pCO2 at Patient Temp Pending Arterial Blood pCO2 (Temp correct) 34 mmHg Arterial Blood pO2 at Patient Temp Pending Arterial Blood pO2 (Temp corrected) 151 mmHg Arterial Blood HCO3 22 mmol/L (21-28) Arterial Blood Base Excess -1 mmol/L (-3-3) FiO2 60 Influenza Type A Antigen Negative (NEGATIVE) Influenza Type B Antigen Negative (NEGATIVE) Laboratory Tests 10/11/19 05:03 Laboratory Tests 10/11/19 05:03 EKG EKG EKG reviewed, normal sinus rhythm, paced rhythm, no evidence of ST elevation UT interpretation time 0 510 [] Radiology/Procedures Radiology/Procedures [][facility] [address] [place] [address] IMAGING REPORT Signed PATIENT: TRUDY VALADEZ ACCOUNT: [id number] : 1940 LOCATION: ER AGE: 79 SEX: M EXAM STATUS: REG ER ORD. PHYSICIAN: ILDA FRITZ MD REASON: SOB PROCEDURE: PORTABLE CHEST 1V Chest AP portable at 0512: Reason for examination: Short of breath. Comparison is made to previous study dated 10/26/2018. Pacemaker remains present over the left hemithorax. Heart size appears be enlarged. Mediastinum is unremarkable considering patient position. There there is prominence of the vascular structures and there is diffuse interstitial and alveolar opacities. There also appear to be bilateral pleural effusions, right greater than left. The appearance would be consistent with pulmonary edema. No acute bony abnormalities are seen. IMPRESSION: Cardiomegaly with diffuse interstitial and alveolar opacities and bilateral pleural effusions, right greater than left. These changes are consistent with pulmonary edema. Electronically signed by: Alie Farah MD (10/11/2019 5:27 AM) [id number] DICTATED and SIGNED BY: ALIE FARAH MD DATE: 10/11/19526 Course & Med Decision Making Course & Med Decision Making Pertinent Labs and Imaging studies reviewed. (See chart for details) [] 79-year-old male presents to the emergency department complaints of shortness of breath/moderate respiratory distress. Patient has underlying history of atrial fibrillation, COPD, hypertension, pacemaker placement. Patient states he started having shortness of breath yesterday afternoon subsequently worsening overnight. Patient describes cough however nonproductive. He denies any fever. Patient describes lower extremity edema of which is chronic. Patient does state he has a history of pleural effusions requiring surgical intervention in the past. Patient has any headache or visual change, nausea or vomiting. Nothing makes his symptoms worse, nothing makes his symptoms better. Patient denies chest pain. Labs/imaging reviewed Chest x-ray reviewed with evidence of acute pulmonary edema, bilateral consolidations White blood cell count 7.3, hemoglobin 12.5, BNP 6582, troponin 0.017 Lasix 60 mg IV, DuoNeb, Solu-Medrol 125 mg IV x1 ABG obtained BiPAP initiated in the emergency department Cultures obtained, Levaquin 750 mg IV x1 Influenza negative Discussed with patient/family Discussed with Hospitalist Gt Disclaimer Gt Disclaimer This electronic medical record was generated, in whole or in part, using a voice recognition dictation system. Departure Departure Impression: Primary Impression: Sepsis Additional Impressions: Acute respiratory failure Pulmonary edema COPD exacerbation Disposition: ADMITTED INPATIENT Condition: GUARDED Referrals: Morales ANGLIN MD (PCP) Critical Care Time Critical care time was 35 minutes exclusive of procedures. Problem Qualifiers Primary Impression: Sepsis Sepsis type: sepsis due to unspecified organism Sepsis acute organ dysfunction status: with acute organ dysfunction Severe sepsis acute organ dysfunction type: acute respiratory failure Acute respiratory failure type: with hypoxia Severe sepsis shock status: without septic shock Qualified Codes: A41.9 - Sepsis, unspecified organism; R65.20 - Severe sepsis without septic shock; J96.01 - Acute respiratory failure with hypoxia Additional Impressions: Acute respiratory failure Respiratory failure complication: hypoxia Qualified Codes: J96.01 - Acute respiratory failure with hypoxia Pulmonary edema Chronicity: acute Qualified Codes: J81.0 - Acute pulmonary edema ILDA FRITZ MD Oct 11, 2019 05:14
[2019-10-11] MEDS ORDERED: ACETAMINOPHEN 650 MG SUPP.RECT. ONE (05:17)
[2019-10-11 05:18] LABS: BASO % 1 % (0-3); EOS % 0 % (0-3); HEMATOCRIT 37.1 % (39.0-53.0); HEMOGLOBIN 12.5 g/dL (13.0-17.5); LYMPH # 0.4 x10^3/uL (1.0-4.8); LYMPH % 5 % (24-48); MEAN CORPUSCULAR HEMOGLOBIN 31 pg (25-35); MEAN CORPUSCULAR HGB CONC 34 g/dL (31-37); MEAN CORPUSCULAR VOLUME 92 fL (79-100); MONO # 0.3 x10^3/uL (0.0-1.1); MONO % 5 % (0-9); NEUT # 6.6 x10^3/uL (1.8-7.7); NEUT % 90 % (31-73); PLATELET COUNT 252 x10^3/uL (140-400); RED BLOOD COUNT 4.04 x10^6/uL (4.30-5.70); RED CELL DISTRIBUTION WIDTH 17.9 % (11.5-14.5); WHITE BLOOD COUNT 7.3 x10^3/uL (4.0-11.0)
[2019-10-11 05:30] LABS: GFR 72.5; POTASSIUM 4.2 mmol/L (3.5-5.1)
[2019-10-11] MEDS ORDERED: methylPREDNISolone SOD SUCC PF 125 MG/2 ML VIAL. IV ONE (05:30)
[2019-10-11] MEDS ORDERED: IPRATRPIUM/ALBUTEROL 0.5/2.5MG 3 ML NEBU. NEB ONE (05:30)
[2019-10-11] MEDS ORDERED: ACETAMINOPHEN 650 MG SUPP.RECT. PR ONE (05:30)
--- NOTE | 2019-10-11 05:30 | RAD ---
Chest AP portable at 0512: Reason for examination: Short of breath. Comparison is made to previous study dated 10/26/2018. Pacemaker remains present over the left hemithorax. Heart size appears be enlarged. Mediastinum is unremarkable considering patient position. There there is prominence of the vascular structures and there is diffuse interstitial and alveolar opacities. There also appear to be bilateral pleural effusions, right greater than left. The appearance would be consistent with pulmonary edema. No acute bony abnormalities are seen. IMPRESSION: Cardiomegaly with diffuse interstitial and alveolar opacities and bilateral pleural effusions, right greater than left. These changes are consistent with pulmonary edema. Electronically signed by: Liliam Aguilera MD (10/11/2019 5:27 AM) [id number]
[2019-10-11 05:36] LABS: ALBUMIN 3.4 g/dL (3.4-5.0); TOTAL BILIRUBIN 1.5 mg/dL (0.2-1.0)
[2019-10-11] MEDS ORDERED: ONDANSETRON PF 4 MG/2 ML VIAL. IV PRN (06:00)
[2019-10-11] MEDS ORDERED: FUROSEMIDE 40 MG/4 ML VIAL. IVP ONE ×2 (06:00→14:15)
[2019-10-11] MEDS ORDERED: MORPHINE SULFATE 2 MG/ML VIAL. IV PRN (06:00)
[2019-10-11 06:08] LABS: INFLUENZA A PATIENT NEGATIVE (NEGATIVE); INFLUENZA B PATIENT NEGATIVE (NEGATIVE)
[2019-10-11 06:10] LABS: ALBUMIN/GLOBULIN RATIO 1.1 (1.0-1.7); TOTAL PROTEIN 6.6 g/dL (6.4-8.2)
[2019-10-11 06:10] LABS: BASE EXCESS ABG -1 mmol/L (-3-3); CORRECTED PCO2 ABG 34 mmHg; CORRECTED PH ABG 7.43; CORRECTED PO2 ABG 151 mmHg; HCO3 ABG 22 mmol/L (21-28); SAT O2 ABG 98 % (92-99)
[2019-10-11 06:11] LABS: FIO2 ABG 60
--- NOTE | 2019-10-11 06:19 | EKG ---
[facility] [address] [place] [address] Test Date: 2019-10-11 Test Time: 05:00:40 Pat Name: TRUDY VALADEZ Department: Room: Gender: M [place] [employer]: : 1940 Requested By: ILDA FRITZ Order Number: [id number] Reading MD: Measurements Intervals [place] Rate: 77 P: IL: QRS: 7 QRSD: 114 T: 174 QT: 332 QTc: 377 Interpretive Statements IRREGULAR RHYTHM, NO P-WAVE FOUND QRS(T) CONTOUR ABNORMALITY CONSISTENT WITH ANTEROSEPTAL INFARCT PROBABLY OLD ST & T ABNORMALITY, CONSIDER HIGH LATERAL ISCHEMIA OR LEFT VENTRICULAR STRAIN T ABNORMALITY IN INFEROLATERAL LEADS ABNORMAL ECG RI6.01 No previous ECG available for comparison
[2019-10-11] MEDS ORDERED: VANCOMYCIN 2 GM in IV NORMAL SALINE 500ML BAG 500 ML IV ONE (06:30)
[2019-10-11 06:31] LABS: % BANDS 11 % (0-9); % LYMPHS 4 % (24-48); % MONOS 3 % (0-10); % SEGS 82 % (35-66); PLT ESTIMATE ADEQUATE (ADEQUATE)
[2019-10-11 06:39] LABS: ANISOCYTOSIS SLIGHT; POLYCHROMASIA SLIGHT
[2019-10-11 06:40] LABS: OVALOCYTES FEW; SCHISTOCYTES OCC
[2019-10-11 06:45] LABS: BILIRUBIN,URINE NEGATIVE (NEG); CLARITY,URINE CLEAR; COLOR,URINE YELLOW; NITRITE,URINE POSITIVE (NEG); PH,URINE 5.5 (<5.0-8.0); PROTEIN,URINE NEGATIVE (NEG-TRACE); UROBILINOGEN,URINE 0.2 mg/dL (0.2 mg/dL)
[2019-10-11 07:00] LABS: BACTERIA,URINE MANY /HPF (0-FEW); SQUAMOUS EPITHELIAL CELL,UR OCC /LPF
[2019-10-11 07:01] LABS: WBC,URINE >40 /HPF (0-4)
[2019-10-11] MEDS: VANCOMYCIN PER PHARMACY MC PRN (07:02)
--- NOTE | 2019-10-11 07:03 | NUR ---
Pharmacy Vancomycin Dosing Note S:Consulted to monitor and dose vancomycin started 10/11/19. O:TRUDY VALADEZ is a 79 year old M with Sepsis . Height: 6 feet, 0 inches Weight: 90.9 kg [employer] Body Weight: 77.60 Adjusted Body Weight: 82.92 Dosing Weight: Actual Other Antibiotics: LABS: Last BUN: 16 Last Creatinine: 1 Creatinine Clearance: 73 mL/min Last WBC: 7.3 Last Procalcitonin: Tmax (past 24 hours): Microbiology: I/O: Drug Levels: Last level: on at Last dose given 10/11/19 at 0630 Vancomycin Dosing: Loading Dose: 2000 mg x1 Dosing Weight: Actual Target Trough: 15-20 A: Based on: WT AND CRCL P: 1. Begin Vancomycin 1250 mg IV q12h 2. Follow up Trough level on 10/12/19 at 1830 3. Pharmacy will continue to monitor, follow and adjust therapy as needed. ROCK TY RPH, 10/11/19 Signed: 10/11/19 at 0703 by ROCK TY RPH PHA
--- NOTE | 2019-10-11 07:24 | NUR ---
IP: Pt is being tested for COVID-19. Testing to be sent this morning. Pt to be in airborne/contact precautions using surgical masks unless suctioning, intubating or inducing a sputum.
[2019-10-11] MEDS: IPRATRPIUM/ALBUTEROL 0.5/2.5MG 3 ML NEBU. NEB SCH ×4 (08:00→19:12)
--- NOTE | 2019-10-11 09:53 | RAD ---
PQRS Compliance Statement: One or more of the following individualized dose reduction techniques were utilized for this examination: 1. Automated exposure control 2. Adjustment of the mA and/or kV according to patient size 3. Use of iterative reconstruction technique CT CHEST WO CONTRAST Clinical Indication: CHF. Comparison: CT chest with contrast September 25, 2018. TECHNIQUE: Helical CT imaging of the chest is performed without IV contrast. Findings: There is left chest single lead pacer. There is severe bilateral gynecomastia. There is anasarca. There are upper limits of normal in size mediastinal lymph nodes. These may be reactive, increased in size from prior study. The great vessels are stable. There is coronary artery disease. Cardiac size upper limits of normal. Small pericardial effusion. There is moderate left pleural effusion. There is chronic appearing anterior right hemithorax pleural thickening. There is consolidation in the posterior basilar left lower lobe that may be compressive atelectasis or pneumonia. There is mild upper lobe centrilobular emphysema. The central airways are patent. In the right lung base there is peribronchial thickening and peripheral consolidations adjacent to the pleural thickening. Atherosclerotic upper abdominal aorta and its branches. Mild upper abdominal ascites. Degenerative spondylosis of the thoracic spine. IMPRESSION: 1. Moderate left pleural effusion. Mild consolidation in the posterior left lower lobe may be compressive atelectasis or pneumonia. 2. Pleural and parenchymal opacities in the inferior right hemithorax may be partially sequela of the hydropneumothorax and left lower lobe collapse noted on the prior study. There may be superimposed pneumonia. 3. Anasarca. 4. Cardiac size upper limits of normal. Small pericardial effusion. 5. Upper limits of normal in size mediastinal lymph nodes are probably reactive. Electronically signed by: Kane Zhong MD (10/11/2019 9:49 AM) [id number]
[2019-10-11 10:00] VITALS: BP 137/61
--- NOTE | 2019-10-11 11:37 | PDOC2 ---
KRZYSZTOF BHANDARI HVAC JOURNEYMAN 10/11/19 1137: CARDIAC CONSULT DATE OF CONSULT Date of Consult DATE: 10/11/19 TIME: 11:25 REASON FOR CONSULT Reason for Consult: Acute pulmonary edema REFERRING PHYSICIAN Referring Physician: Dr. Adkins SOURCE Source: Chart review, Patient HISTORY OF PRESENT ILLNESS HISTORY OF PRESENT ILLNESS This is a 79 yo male who present secondary to shortness of breath. Has been more short of air for the last 3 weeks. Has progressively worsened. Yesterday evening, was significantly more short of breath. Was unable to sleep last night due to shortness of breath so he came to the ED for further evaluation and treatment. No dizziness, diaphoresis, chest pain, palpitations, or nausea/vomiting. No recent illness/cough/fevers reported, but was febrile upon arrival. UA notable for UTI. Breathing has improved post diuresis. PAST MEDICAL HISTORY Past Medical History Cardiovascular: AFIB, CHF (systolic ), HTN Pulmonary: COPD, Other (recurrent pleural effusion s/p thoracentesis ) CENTRAL NERVOUS SYSTEM: CVA GI: No pertinent hx Heme/Onc: No pertinent hx Hepatobiliary: Cirrhosis Psych: No pertinent hx Musculoskeletal: Osteoarthritis Rheumatologic: Gout Infectious disease: No pertinent hx ENT: Sincusitis Renal/: Benign prostatic enlarg. Endocrine: No pertinent hx Dermatology: No pertinent hx PAST SURGICAL HISTORY Past Surgical History Pacemaker (Biotronik), Total knee replacement (left ), Other (back surgery, thoracentesis (multiple), carotid endarterectomy ) FAMILY HISTORY Family History: Hypertension SOCIAL HISTORY Social History Smoke: <1 pack per day ALCOHOL: none Drugs: None Lives: with Family CURRENT MEDICATIONS CURRENT MEDICATIONS Current Medications Medications (Trade) Dose Ordered Sig/Karime Route PRN Reason Start Time Stop Time Status Last Admin Dose Admin Albuterol/ Ipratropium (Duoneb) 3 ml 1X ONCE NEB 10/11/19 05:30 10/11/19 05:31 DC 10/11/19 05:35 Methylprednisolone Sodium Succinate (SOLU-Medrol 125MG VIAL) 125 mg 1X ONCE IV 10/11/19 05:30 10/11/19 05:31 DC 10/11/19 05:30 Acetaminophen (Tylenol Supp) 650 mg 1X ONCE MT 10/11/19 05:30 10/11/19 05:31 DC 10/11/19 05:30 Levofloxacin/ Dextrose 150 ml @ 100 mls/hr 1X ONCE IV 10/11/19 06:00 10/11/19 07:29 DC 10/11/19 05:43 Furosemide (Lasix) 60 mg 1X ONCE IVP 10/11/19 06:00 10/11/19 06:01 DC 10/11/19 05:43 Vancomycin HCl (Vanco Per Pharmacy) 1 each PRN DAILY PRN MC SEE COMMENTS 10/11/19 06:15 10/11/19 07:02 Vancomycin HCl 2 gm/Sodium Chloride 500 ml @ 250 mls/hr 1X ONCE IV 10/11/19 06:30 10/11/19 08:29 DC 10/11/19 06:30 ALLERGIES ALLERGIES: Coded Allergies: Penicillins (Verified Allergy, Intermediate, Rash, 09/27/18) ROS Review of System 14 point ROS conducted with pertinent positives noted above in HPI PHYSICAL EXAM PHYSICAL EXAM General: Alert, Oriented X3, Cooperative, No acute distress HEENT: Atraumatic, Mucous membr. moist/pink Heart: Other (int v-paced with underlying AFIB) Lungs: diminished bases Abdomen: Soft, No tenderness Extremities: 1-2+ bilateral LE edema, Normal pulses Skin: No significant lesion Neuro: Normal speech, Sensation intact Psych/Mental Status: Mental status NL, Mood NL MUSCULOSKELETAL: No joint tenderness, Osteoarthritic changes both hands VITALS/I&O VITALS/I&O: Vital Signs Date Time Temp Pulse Resp B/P (MAP) Pulse Ox O2 Delivery O2 Flow Rate FiO2 10/11/19 11:00 68 18 98 Nasal Cannula 4.0 10/11/19 10:00 99.3 99.3 LABS Lab: Laboratory Tests Test 10/11/19 05:03 10/11/19 05:20 10/11/19 05:26 10/11/19 09:00 White Blood Count 7.3 x10^3/uL (4.0-11.0) Red Blood Count 4.04 x10^6/uL (4.30-5.70) L Hemoglobin 12.5 g/dL (13.0-17.5) L Hematocrit 37.1 % (39.0-53.0) L Mean Corpuscular Volume 92 fL (79-100) Mean Corpuscular Hemoglobin 31 pg (25-35) Mean Corpuscular Hemoglobin Concent 34 g/dL (31-37) Red Cell Distribution Width 17.9 % (11.5-14.5) H Platelet Count 252 x10^3/uL (140-400) Neutrophils (%) (Auto) 90 % (31-73) H Lymphocytes (%) (Auto) 5 % (24-48) L Monocytes (%) (Auto) 5 % (0-9) Eosinophils (%) (Auto) 0 % (0-3) Basophils (%) (Auto) 1 % (0-3) Neutrophils # (Auto) 6.6 x10^3/uL (1.8-7.7) Lymphocytes # (Auto) 0.4 x10^3/uL (1.0-4.8) L Monocytes # (Auto) 0.3 x10^3/uL (0.0-1.1) Eosinophils # (Auto) 0.0 x10^3/uL (0.0-0.7) Basophils # (Auto) 0.0 x10^3/uL (0.0-0.2) Segmented Neutrophils % 82 % (35-66) H Band Neutrophils % 11 % (0-9) H Lymphocytes % 4 % (24-48) L Monocytes % 3 % (0-10) Platelet Estimate Adequate (ADEQUATE) Polychromasia Slight Anisocytosis Slight Ovalocytes Few Schistocytes Occ Sodium Level 139 mmol/L (136-145) Potassium Level 4.2 mmol/L (3.5-5.1) Chloride Level 102 mmol/L (98-107) Carbon Dioxide Level 28 mmol/L (21-32) Anion Gap 9 (6-14) Blood Urea Nitrogen 16 mg/dL (8-26) Creatinine 1.0 mg/dL (0.7-1.3) Estimated GFR (Cockcroft-Gault) 72.5 BUN/Creatinine Ratio 16 (6-20) Glucose Level 124 mg/dL (70-99) H Lactic Acid Level 2.1 mmol/L (0.4-2.0) H 1.0 mmol/L (0.4-2.0) Calcium Level 9.0 mg/dL (8.5-10.1) Total Bilirubin 1.5 mg/dL (0.2-1.0) H Aspartate Amino Transferase (AST) 28 U/L (15-37) Alanine Aminotransferase (ALT) 31 U/L (16-63) Alkaline Phosphatase 98 U/L (46-116) Lactate Dehydrogenase 202 U/L (85-227) Troponin I Quantitative < 0.017 ng/mL (0.000-0.055) ZX-Ezs-T-Type Natriuretic Peptide 6582 pg/mL (0-449) H Total Protein 6.6 g/dL (6.4-8.2) Albumin 3.4 g/dL (3.4-5.0) Albumin/Globulin Ratio 1.1 (1.0-1.7) Procalcitonin < 0.10 ng/mL (0.00-0.10) O2 Saturation 98 % (92-99) Arterial Blood pH Pending Arterial Blood pH (Temp corrected) 7.43 Arterial Blood pCO2 at Patient Temp Pending Arterial Blood pCO2 (Temp correct) 34 mmHg Arterial Blood pO2 at Patient Temp Pending Arterial Blood pO2 (Temp corrected) 151 mmHg Arterial Blood HCO3 22 mmol/L (21-28) Arterial Blood Base Excess -1 mmol/L (-3-3) FiO2 60 Urine Collection Type Void Urine Color Yellow Urine Clarity Clear Urine pH 5.5 (<5.0-8.0) Urine Specific [place] 1.015 (1.000-1.030) Urine Protein Negative mg/dL (NEG-TRACE) Urine Glucose (UA) Negative mg/dL (NEG) Urine Ketones (Stick) Trace mg/dL (NEG) Urine Blood Negative (NEG) Urine Nitrite Positive (NEG) Urine Bilirubin Negative (NEG) Urine Urobilinogen Dipstick 0.2 mg/dL (0.2 mg/dL) Urine Leukocyte Esterase Moderate (NEG) Urine RBC 1-2 /HPF (0-2) Urine WBC >40 /HPF (0-4) Urine Squamous Epithelial Cells Occ /LPF Urine Bacteria Many /HPF (0-FEW) Urine Mucus Slight /LPF Influenza Type A Antigen Negative (NEGATIVE) Influenza Type B Antigen Negative (NEGATIVE) Laboratory Tests 10/11/19 05:03 Laboratory Tests 10/11/19 05:03 ECHOCARDIOGRAM ECHOCARDIOGRAM <Conclusion> The systolic function is mildly impaired. EF 40-45%. Difficult to estimate due to afib, bradycardia and pacing. There is global hypokinesis of the left ventricle. Apical motion consistent with pacemaker activation. There is a pacemaker lead in the right ventricle. The interatrial septum is intact with no evidence for an atrial septal defect or patent foramen ovale as noted on 2-D or Doppler imaging. Agitated saline contrast demonstrated no evidence of ASD/PFO. DATE: 02/23/18 1001 <Conclusion> The systolic function is moderately impaired. The Ejection Fraction is 40%. Septal motion consistent with conduction abnormality. Mild to moderate global hypokinesis. Tissue Doppler imaging reveals moderate left ventricular diastolic dysfunction. The right atrium is severely dilated. A pacemaker is seen in the right atrium consistent with history. Doppler and Color Flow revealed mild tricuspid regurgitation. PA pressure is estimated at 39 mmHg. DATE: 09/22/19 0853 ASSESSMENT/PLAN ASSESSMENT/PLAN 1. Acute on chronic respiratory failure secondary to a/c CHF, moderate left pleural effusion. Covid 19 pending 2. 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 improved with IV Lasix 3. Permanent AFIB; On Pradaxa for stroke prophylaxis. 4. Accelerated hypertension; better controlled 5. S/p PPM implantation (Biotronik). Recent device check with normal function. No high rates or mode switching. 6. Cirrhosis 7. Lactic acidosis, fevers, UTI Recommendations Needs additional diuresis Resume metoprolol for rate control Pradaxa for stroke prophylaxis Resume oral antiHTN therapy and titrate therapy as warranted Supportive care. Antibiotic therapy for UTI SHIRLEY CORDERO MD 10/11/19 3275: CARDIAC CONSULT ASSESSMENT/PLAN ASSESSMENT/PLAN Pt. seen and examined. Agree with above OIL PROGRAM COMPLIANCE SPECIALIST note. Continue diuresis. Overall, appears that his presentation mostly related to heart failure. KRZYSZTOF BHANDARI APRN Oct 11, 2019 11:37 SHIRLEY CORDERO MD Oct 11, 2019 17:55
[2019-10-11 12:00] VITALS: BP 148/73
--- NOTE | 2019-10-11 13:33 | PDOC ---
PULMONARY PROGRESS NOTES Vitals Vital Signs Date Time Temp Pulse Resp B/P (MAP) Pulse Ox O2 Delivery O2 Flow Rate FiO2 10/11/19 13:00 71 19 94 Room Air 10/11/19 12:00 98.4 2.0 98.4 General: Alert, Oriented X4, No acute distress HEENT: Other Lungs: Other Cardiovascular: S1, S2 Abdomen: Soft, Non-tender Extremities: No Edema Labs Laboratory Tests Test 10/11/19 05:03 10/11/19 05:20 10/11/19 05:26 10/11/19 09:00 White Blood Count 7.3 x10^3/uL (4.0-11.0) Red Blood Count 4.04 x10^6/uL (4.30-5.70) Hemoglobin 12.5 g/dL (13.0-17.5) Hematocrit 37.1 % (39.0-53.0) Mean Corpuscular Volume 92 fL (79-100) Mean Corpuscular Hemoglobin 31 pg (25-35) Mean Corpuscular Hemoglobin Concent 34 g/dL (31-37) Red Cell Distribution Width 17.9 % (11.5-14.5) Platelet Count 252 x10^3/uL (140-400) Neutrophils (%) (Auto) 90 % (31-73) Lymphocytes (%) (Auto) 5 % (24-48) Monocytes (%) (Auto) 5 % (0-9) Eosinophils (%) (Auto) 0 % (0-3) Basophils (%) (Auto) 1 % (0-3) Neutrophils # (Auto) 6.6 x10^3/uL (1.8-7.7) Lymphocytes # (Auto) 0.4 x10^3/uL (1.0-4.8) Monocytes # (Auto) 0.3 x10^3/uL (0.0-1.1) Eosinophils # (Auto) 0.0 x10^3/uL (0.0-0.7) Basophils # (Auto) 0.0 x10^3/uL (0.0-0.2) Segmented Neutrophils % 82 % (35-66) Band Neutrophils % 11 % (0-9) Lymphocytes % 4 % (24-48) Monocytes % 3 % (0-10) Platelet Estimate Adequate (ADEQUATE) Polychromasia Slight Anisocytosis Slight Ovalocytes Few Schistocytes Occ Sodium Level 139 mmol/L (136-145) Potassium Level 4.2 mmol/L (3.5-5.1) Chloride Level 102 mmol/L (98-107) Carbon Dioxide Level 28 mmol/L (21-32) Anion Gap 9 (6-14) Blood Urea Nitrogen 16 mg/dL (8-26) Creatinine 1.0 mg/dL (0.7-1.3) Estimated GFR (Cockcroft-Gault) 72.5 BUN/Creatinine Ratio 16 (6-20) Glucose Level 124 mg/dL (70-99) Lactic Acid Level 2.1 mmol/L (0.4-2.0) 1.0 mmol/L (0.4-2.0) Calcium Level 9.0 mg/dL (8.5-10.1) Total Bilirubin 1.5 mg/dL (0.2-1.0) Aspartate Amino Transf (AST/SGOT) 28 U/L (15-37) Alanine Aminotransferase (ALT/SGPT) 31 U/L (16-63) Alkaline Phosphatase 98 U/L (46-116) Lactate Dehydrogenase 202 U/L (85-227) Troponin I Quantitative < 0.017 ng/mL (0.000-0.055) QV-[id number]-X-Type Natriuretic Peptide 6582 pg/mL (0-449) Total Protein 6.6 g/dL (6.4-8.2) Albumin 3.4 g/dL (3.4-5.0) Albumin/Globulin Ratio 1.1 (1.0-1.7) Procalcitonin < 0.10 ng/mL (0.00-0.10) O2 Saturation 98 % (92-99) Arterial Blood pH (Temp corrected) 7.43 Arterial Blood pCO2 (Temp correct) 34 mmHg Arterial Blood pO2 (Temp corrected) 151 mmHg Arterial Blood HCO3 22 mmol/L (21-28) Arterial Blood Base Excess -1 mmol/L (-3-3) FiO2 60 Urine Collection Type Void Urine Color Yellow Urine Clarity Clear Urine pH 5.5 (<5.0-8.0) Urine Specific [place] 1.015 (1.000-1.030) Urine Protein Negative mg/dL (NEG-TRACE) Urine Glucose (UA) Negative mg/dL (NEG) Urine Ketones (Stick) Trace mg/dL (NEG) Urine Blood Negative (NEG) Urine Nitrite Positive (NEG) Urine Bilirubin Negative (NEG) Urine Urobilinogen Dipstick 0.2 mg/dL (0.2 mg/dL) Urine Leukocyte Esterase Moderate (NEG) Urine RBC 1-2 /HPF (0-2) Urine WBC >40 /HPF (0-4) Urine Squamous Epithelial Cells Occ /LPF Urine Bacteria Many /HPF (0-FEW) Urine Mucus Slight /LPF Influenza Type A Antigen Negative (NEGATIVE) Influenza Type B Antigen Negative (NEGATIVE) Laboratory Tests Test 10/11/19 05:03 10/11/19 05:20 10/11/19 05:26 10/11/19 09:00 White Blood Count 7.3 x10^3/uL (4.0-11.0) Red Blood Count 4.04 x10^6/uL (4.30-5.70) Hemoglobin 12.5 g/dL (13.0-17.5) Hematocrit 37.1 % (39.0-53.0) Mean Corpuscular Volume 92 fL (79-100) Mean Corpuscular Hemoglobin 31 pg (25-35) Mean Corpuscular Hemoglobin Concent 34 g/dL (31-37) Red Cell Distribution Width 17.9 % (11.5-14.5) Platelet Count 252 x10^3/uL (140-400) Neutrophils (%) (Auto) 90 % (31-73) Lymphocytes (%) (Auto) 5 % (24-48) Monocytes (%) (Auto) 5 % (0-9) Eosinophils (%) (Auto) 0 % (0-3) Basophils (%) (Auto) 1 % (0-3) Neutrophils # (Auto) 6.6 x10^3/uL (1.8-7.7) Lymphocytes # (Auto) 0.4 x10^3/uL (1.0-4.8) Monocytes # (Auto) 0.3 x10^3/uL (0.0-1.1) Eosinophils # (Auto) 0.0 x10^3/uL (0.0-0.7) Basophils # (Auto) 0.0 x10^3/uL (0.0-0.2) Segmented Neutrophils % 82 % (35-66) Band Neutrophils % 11 % (0-9) Lymphocytes % 4 % (24-48) Monocytes % 3 % (0-10) Platelet Estimate Adequate (ADEQUATE) Polychromasia Slight Anisocytosis Slight Ovalocytes Few Schistocytes Occ Sodium Level 139 mmol/L (136-145) Potassium Level 4.2 mmol/L (3.5-5.1) Chloride Level 102 mmol/L (98-107) Carbon Dioxide Level 28 mmol/L (21-32) Anion Gap 9 (6-14) Blood Urea Nitrogen 16 mg/dL (8-26) Creatinine 1.0 mg/dL (0.7-1.3) Estimated GFR (Cockcroft-Gault) 72.5 BUN/Creatinine Ratio 16 (6-20) Glucose Level 124 mg/dL (70-99) Lactic Acid Level 2.1 mmol/L (0.4-2.0) 1.0 mmol/L (0.4-2.0) Calcium Level 9.0 mg/dL (8.5-10.1) Total Bilirubin 1.5 mg/dL (0.2-1.0) Aspartate Amino Transf (AST/SGOT) 28 U/L (15-37) Alanine Aminotransferase (ALT/SGPT) 31 U/L (16-63) Alkaline Phosphatase 98 U/L (46-116) Lactate Dehydrogenase 202 U/L (85-227) Troponin I Quantitative < 0.017 ng/mL (0.000-0.055) PM-Dtt-S-Type Natriuretic Peptide 6582 pg/mL (0-449) Total Protein 6.6 g/dL (6.4-8.2) Albumin 3.4 g/dL (3.4-5.0) Albumin/Globulin Ratio 1.1 (1.0-1.7) Procalcitonin < 0.10 ng/mL (0.00-0.10) O2 Saturation 98 % (92-99) Arterial Blood pH (Temp corrected) 7.43 Arterial Blood pCO2 (Temp correct) 34 mmHg Arterial Blood pO2 (Temp corrected) 151 mmHg Arterial Blood HCO3 22 mmol/L (21-28) Arterial Blood Base Excess -1 mmol/L (-3-3) FiO2 60 Urine Collection Type Void Urine Color Yellow Urine Clarity Clear Urine pH 5.5 (<5.0-8.0) Urine Specific [place] 1.015 (1.000-1.030) Urine Protein Negative mg/dL (NEG-TRACE) Urine Glucose (UA) Negative mg/dL (NEG) Urine Ketones (Stick) Trace mg/dL (NEG) Urine Blood Negative (NEG) Urine Nitrite Positive (NEG) Urine Bilirubin Negative (NEG) Urine Urobilinogen Dipstick 0.2 mg/dL (0.2 mg/dL) Urine Leukocyte Esterase Moderate (NEG) Urine RBC 1-2 /HPF (0-2) Urine WBC >40 /HPF (0-4) Urine Squamous Epithelial Cells Occ /LPF Urine Bacteria Many /HPF (0-FEW) Urine Mucus Slight /LPF Influenza Type A Antigen Negative (NEGATIVE) Influenza Type B Antigen Negative (NEGATIVE) Medications Active Scripts Medications Dose Route/Sig Max Daily Dose Days Date Category Cozaar (Losartan Potassium) 50 Mg Tablet 50 Mg PO DAILY 30 10/08/18 Rx Amlodipine Besylate 5 Mg Tablet 5 Mg PO DAILY 30 10/08/18 Rx Spironolactone 50 Mg Tablet 1 Tab PO DAILY 09/23/18 Reported Metoprolol Tartrate 50 Mg Tablet 50 Mg PO DAILY07 09/09/18 Reported Metoprolol Tartrate 25 Mg Tablet 25 Mg PO QEVNG 09/09/18 Reported Aspirin Ec (Aspirin) 81 Mg Tablet.dr 81 Mg PO DAILYWBKFT 11/22/16 Rx Finasteride 5 Mg Tablet 1 Tab PO DAILY 11/21/16 Rx Tamsulosin Hcl 0.4 Mg Cap.er.24h 1 Cap PO DAILY 11/21/16 Rx Tramadol Hcl 50 Mg Tablet 1 Tab PO PRN Q6HRS 11/21/16 Rx Pradaxa (Dabigatran Etexilate Mesylate) 150 Mg Capsule 150 Mg PO BID 11/21/14 Reported Zyloprim (Allopurinol) 100 Mg Tablet 100 Mg PO DAILY 08/11/13 Reported Impression . FULL NOTE DICTATED THANKS WILL PROCEED WITH THORACENTESIS RULE OUT EMPYEMA JEREMY DRAKE MD Oct 11, 2019 13:33
[2019-10-11] MEDS ORDERED: LIDOCAINE WITH 8.4% SOD BICARB 3 ML DISP.SYRIN. ONE (13:57)
--- NOTE | 2019-10-11 14:03 | HP ---
ADMIT DATE: 10/11/2019 CHIEF COMPLAINT: Shortness of breath and cough. HISTORY OF PRESENT ILLNESS: The patient is a pleasant 79-year-old male who has known COPD and CHF and multiple comorbidities, who presented with shortness of breath. He has now been admitted to the ICU room 114 where he is in isolation. We are ruling out COVID-19. PAST MEDICAL HISTORY: COPD, CHF, AFib, stroke, gout, and BPH. ALLERGIES: PENICILLIN. FAMILY HISTORY: Diabetes. SOCIAL HISTORY: He quit smoking. No drink. No drugs. MEDICATIONS: Reviewed. Please refer to the MRAD. REVIEW OF SYSTEMS: GENERAL: No history of weight change, weakness or fevers. SKIN: No bruising, hair changes or rashes. EYES: No blurred, double or loss of vision. NOSE AND THROAT: No history of nosebleeds, hoarseness or sore throat. HEART: No history of palpitations or chest pain. PULMONARY: He complains of shortness of breath and cough. GASTROINTESTINAL: Denies changes in appetite, nausea, vomiting, diarrhea or constipation. GENITOURINARY: No history of frequency, urgency, hesitancy or nocturia. NEUROLOGIC: Denies history of numbness, tingling, tremor or weakness. PSYCHIATRIC: No history of panic, anxiety or depression. ENDOCRINE: No history of heat or cold intolerance, polyuria or polydipsia. EXTREMITIES: Denies muscle weakness, joint pain, pain on walking or stiffness. PHYSICAL EXAMINATION: VITALS: Within normal limits and are stable. GENERAL: No apparent distress. Alert and oriented. HEENT: Normal cephalic atraumatic, external auditory canals are patent EYES: Extraocular muscles are intact, pupils are equally round and reactive to light and accommodation MUSCULOSKELETAL: Well developed, well nourished, good range of motion ENDOCRINE: No thyromegaly was palpated LYMPHATICS: No cervical chain or axillary nodes were noted HEMATOPOIETIC: No bruising NECK: Supple, no JVD, no thyromegaly was noted. LUNGS: He has decreased breath sounds with wheezing. HEART: RRR, S1, S2 present. Peripheral pulses intact, no obvious murmurs were noted. ABDOMEN: Soft, nontender. Positive bowel sounds no organomegaly, normal bowel sounds. EXTREMITIES: Without any cyanosis, clubbing, or edema. Pedal pulses intact, Homans sign is negative. NEUROLOGIC: He is pleasant, but somewhat confused at times. PSYCHIATRIC: Normal affect, normal mood. Stable. SKIN: No ulcerations or rashes, good skin turgor, no jaundice. VASCULAR: Good capillary refill, neurovascular bundle appears to be intact. LABORATORY DATA: Hemoglobin is 12.5, white count is 7.3, and platelets 252. Troponin is 0. ASSESSMENT AND PLAN: Respiratory failure secondary to chronic obstructive pulmonary disease and congestive heart failure. The patient has been admitted to the ICU. We are checking for COVID-19. IV antibiotics, breathing treatments, oxygen and steroids, home meds, and DVT prophylaxis. Consult Pulmonary. Consult Cardiology. VALERY GOODEN DO DR: GYPSY/ryan JOB#: [id number] / [id number]
[2019-10-11] MEDS ORDERED: FINASTERIDE 5 MG TABLET. PO SCH (14:30)
[2019-10-11] MEDS ORDERED: TAMSULOSIN 0.4 MG CAP.ER.24H. PO SCH (14:30)
[2019-10-11 15:47] VITALS: BP 174/72
[2019-10-11] MEDS: LOSARTAN POTASSIUM 50 MG TABLET. PO SCH (15:58)
[2019-10-11] MEDS: amLODIPine BESYLATE 5 MG TABLET PO SCH (15:59)
[2019-10-11] MEDS: SPIRONOLACTONE 25 MG TABLET PO SCH (15:59)
[2019-10-11] MEDS: metOLazone 2.5 MG TABLET PO SCH (15:59)
[2019-10-11] MEDS: ASPIRIN ENTERIC COATED 81 MG TABLET.DR. PO SCH (15:59)
[2019-10-11] MEDS: DABIGATRAN ETEXILATE 150 MG CAPSULE. PO SCH (16:27)
[2019-10-11] MEDS: METOPROLOL TART IMMED RELEASE 25 MG TABLET. PO SCH (17:45)
[2019-10-11] MEDS: VANCOMYCIN 1.25 GM in IV NORMAL SALINE 250ML 250 ML IV SCH (18:31)
[2019-10-11 19:08] VITALS: BP 133/63
[2019-10-11] MEDS: FINASTERIDE 5 MG TABLET. PO SCH (21:22)
[2019-10-11] MEDS: TAMSULOSIN 0.4 MG CAP.ER.24H. PO SCH (21:22)
[2019-10-11] MEDS: diphenhydrAMINE HCL 25 MG CAPSULE PO PRN (21:23)
[2019-10-11 22:10] VITALS: BP 135/65
--- NOTE | 2019-10-11 23:28 | CONS ---
DATE OF CONSULTATION: 10/11/2019 ATTENDING PHYSICIAN: Pablo Amaral MD REASON FOR CONSULTATION: The patient seen in pulmonary consultation at the request of Dr. Amaral for acute hypoxemic respiratory failure, abnormal CT chest. HISTORY OF PRESENT ILLNESS: The patient is a 78-year-old with a history of recurrent right-sided effusion secondary to alcoholic cirrhosis, chronic AFib, COPD, tobacco dependence, in remission, presented with increasing shortness of breath over the last 24-48 hours. He was unable to sleep the night before last. He states that he has been short of breath now for 2-3 weeks. No fever, chills or night sweats. He presented to the Emergency Room, had a fever of 100.4. He was severely hypoxic, requiring noninvasive ventilation. He is currently in the intensive care unit. The case was discussed with the [facility] Department. He is currently impending COVID-19 patient. PAST MEDICAL HISTORY: Remarkable for recurrent right-sided pleural effusion secondary to alcoholic cirrhosis, chronic AFib, COPD, tobacco dependent. He actually underwent surgical intervention last year in September. He had a bronchoscopy, right sided video-assisted thoracoscopy with right thoracotomy with decortication. The pathology revealed a fibrinous exudate, acute on chronic pleuritis. There were no malignant cells. The BAL from the right lower lobe was negative for malignant cells. PAST SURGICAL HISTORY: As indicated above. ALLERGIES: PENICILLIN. SOCIAL HISTORY: He is currently not smoking. REVIEW OF SYSTEMS: CONSTITUTIONAL: No fever or chills. EYES: No change in visual acuity. HENT: No nasal congestion or sore throat. PULMONARY: As indicated above. CARDIOVASCULAR: No chest pain. No pressure. GASTROINTESTINAL: No nausea, vomiting, diarrhea. GENITOURINARY: No dysuria or frequency. MUSCULOSKELETAL: No localized muscle aches or joint pains. SKIN: No new skin rashes. NEUROLOGIC: No headaches, diplopia or blurred vision. PHYSICAL EXAMINATION: GENERAL: The patient was in no respiratory distress. VITAL SIGNS: Stable. He did have a T-max yesterday of 102.0. HEENT: Eyes, the sclerae were nonicteric. NECK: Jugular venous distention was not elevated. No lymphadenopathy. CHEST: Full expansion. LUNGS: Diminished breath sounds in the left. CARDIOVASCULAR: Regular rate and rhythm with S1, S2, no S3. ABDOMEN: Soft, nontender, nondistended. EXTREMITIES: No clubbing, cyanosis or edema. NEUROLOGICAL: The patient was awake, alert, following commands. A detailed neuro exam was not performed. LABORATORY DATA: Labs were reviewed. White count was 7.3, hemoglobin and hematocrit noted, platelet count was 252. Arterial blood gas; pH of 7.43, PaCO2 of 34, pO2 of 151 on 60% FiO2 BiPAP. Electrolytes were noted. BUN and creatinine were normal. Glucose was 124, total bilirubin was elevated. Albumin was 3.4. BNP was elevated. Procalcitonin was low. Lactic acid level initially elevated, now down to 1. CT chest as indicated above revealing evidence of moderate left effusion with some consolidation in the posterior left lower lobe. There were some pleural parenchymal opacities in the right hemithorax. There was some anasarca. IMPRESSION: 1. Acute on chronic hypoxemic respiratory failure. 2. Left-sided pleural effusion. 3. History of recurrent right-sided pleural effusion, status post video-assisted thoracotomy with decortication back in 09/2018. 4. Liver cirrhosis. 5. Tobacco dependence, in remission. 6. Acute exacerbation of chronic obstructive pulmonary disease. 7. Acute on chronic cor pulmonale. 8. History of atrial fibrillation. PLAN: 1. Recommend to continue p.r.n. BiPAP. 2. Thoracentesis. 3. Empiric antibiotics. 4. DVT and GI prophylaxis. 5. We will send out pleural fluid for routine analysis. I do appreciate the privilege in sharing in the patient's care. JEREMY DRAKE MD DR: SOMMER/ryan JOB#: [id number] / [id number]
[2019-10-12 03:30] VITALS: BP 132/61
[2019-10-12] MEDS: VANCOMYCIN 1.25 GM in IV NORMAL SALINE 250ML 250 ML IV SCH ×2 (06:10→18:28)
[2019-10-12] MEDS: METOPROLOL TART IMMED RELEASE 25 MG TABLET. PO SCH ×2 (06:11→18:24)
[2019-10-12] MEDS: METOPROLOL TART IMMED RELEASE 50 MG TABLET. PO SCH (06:15)
[2019-10-12 07:00] VITALS: BP 132/62
[2019-10-12 07:44] LABS: PCO2 ABG 32 mmHg (35-46); PO2 ABG 139 mmHg (65-108)
[2019-10-12] MEDS ORDERED: ANTI-COAG MONITOR BY PHARMACY. MC PRN (07:45)
[2019-10-12] MEDS: VANCOMYCIN PER PHARMACY MC PRN ×3 (07:46→20:28)
[2019-10-12] MEDS ORDERED: LIDOCAINE WITH 8.4% SOD BICARB 3 ML DISP.SYRIN. ONE (08:16)
--- NOTE | 2019-10-12 08:27 | PDOC ---
PULMONARY PROGRESS NOTES Subjective PT FEELS BETTER LESS SOA Vitals Vital Signs Date Time Temp Pulse Resp B/P (MAP) Pulse Ox O2 Delivery O2 Flow Rate FiO2 10/12/19 07:00 97.8 58 20 132/62 (85) 96 Room Air 97.8 10/11/19 20:00 4.0 ROS: No Nausea, No Chest Pain, No Abdominal Pain, No Increase Cough General: Alert, No acute distress Lungs: Other Cardiovascular: S1, S2 Abdomen: Soft, Non-tender Neuro Exam: Alert Extremities: No Edema Skin: Warm Labs Laboratory Tests Test 10/11/19 05:03 10/11/19 05:20 10/11/19 05:26 10/11/19 09:00 White Blood Count 7.3 x10^3/uL (4.0-11.0) Red Blood Count 4.04 x10^6/uL (4.30-5.70) Hemoglobin 12.5 g/dL (13.0-17.5) Hematocrit 37.1 % (39.0-53.0) Mean Corpuscular Volume 92 fL (79-100) Mean Corpuscular Hemoglobin 31 pg (25-35) Mean Corpuscular Hemoglobin Concent 34 g/dL (31-37) Red Cell Distribution Width 17.9 % (11.5-14.5) Platelet Count 252 x10^3/uL (140-400) Neutrophils (%) (Auto) 90 % (31-73) Lymphocytes (%) (Auto) 5 % (24-48) Monocytes (%) (Auto) 5 % (0-9) Eosinophils (%) (Auto) 0 % (0-3) Basophils (%) (Auto) 1 % (0-3) Neutrophils # (Auto) 6.6 x10^3/uL (1.8-7.7) Lymphocytes # (Auto) 0.4 x10^3/uL (1.0-4.8) Monocytes # (Auto) 0.3 x10^3/uL (0.0-1.1) Eosinophils # (Auto) 0.0 x10^3/uL (0.0-0.7) Basophils # (Auto) 0.0 x10^3/uL (0.0-0.2) Segmented Neutrophils % 82 % (35-66) Band Neutrophils % 11 % (0-9) Lymphocytes % 4 % (24-48) Monocytes % 3 % (0-10) Platelet Estimate Adequate (ADEQUATE) Polychromasia Slight Anisocytosis Slight Ovalocytes Few Schistocytes Occ Sodium Level 139 mmol/L (136-145) Potassium Level 4.2 mmol/L (3.5-5.1) Chloride Level 102 mmol/L (98-107) Carbon Dioxide Level 28 mmol/L (21-32) Anion Gap 9 (6-14) Blood Urea Nitrogen 16 mg/dL (8-26) Creatinine 1.0 mg/dL (0.7-1.3) Estimated GFR (Cockcroft-Gault) 72.5 BUN/Creatinine Ratio 16 (6-20) Glucose Level 124 mg/dL (70-99) Lactic Acid Level 2.1 mmol/L (0.4-2.0) 1.0 mmol/L (0.4-2.0) Calcium Level 9.0 mg/dL (8.5-10.1) Total Bilirubin 1.5 mg/dL (0.2-1.0) Aspartate Amino Transf (AST/SGOT) 28 U/L (15-37) Alanine Aminotransferase (ALT/SGPT) 31 U/L (16-63) Alkaline Phosphatase 98 U/L (46-116) Lactate Dehydrogenase 202 U/L (85-227) Troponin I Quantitative < 0.017 ng/mL (0.000-0.055) [id number]-[id number]-Type Natriuretic Peptide 6582 pg/mL (0-449) Total Protein 6.6 g/dL (6.4-8.2) Albumin 3.4 g/dL (3.4-5.0) Albumin/Globulin Ratio 1.1 (1.0-1.7) Procalcitonin < 0.10 ng/mL (0.00-0.10) O2 Saturation 98 % (92-99) Arterial Blood pH 7.46 (7.35-7.45) Arterial Blood pH (Temp corrected) 7.43 Arterial Blood pCO2 at Patient Temp 32 mmHg (35-46) Arterial Blood pCO2 (Temp correct) 34 mmHg Arterial Blood pO2 at Patient Temp 139 mmHg (65-108) Arterial Blood pO2 (Temp corrected) 151 mmHg Arterial Blood HCO3 22 mmol/L (21-28) Arterial Blood Base Excess -1 mmol/L (-3-3) FiO2 60 Urine Collection Type Void Urine Color Yellow Urine Clarity Clear Urine pH 5.5 (<5.0-8.0) Urine Specific [place] 1.015 (1.000-1.030) Urine Protein Negative mg/dL (NEG-TRACE) Urine Glucose (UA) Negative mg/dL (NEG) Urine Ketones (Stick) Trace mg/dL (NEG) Urine Blood Negative (NEG) Urine Nitrite Positive (NEG) Urine Bilirubin Negative (NEG) Urine Urobilinogen Dipstick 0.2 mg/dL (0.2 mg/dL) Urine Leukocyte Esterase Moderate (NEG) Urine RBC 1-2 /HPF (0-2) Urine WBC >40 /HPF (0-4) Urine Squamous Epithelial Cells Occ /LPF Urine Bacteria Many /HPF (0-FEW) Urine Mucus Slight /LPF Influenza Type A Antigen Negative (NEGATIVE) Influenza Type B Antigen Negative (NEGATIVE) Laboratory Tests Test 10/11/19 09:00 Lactic Acid Level 1.0 mmol/L (0.4-2.0) Medications Active Scripts Medications Dose Route/Sig Max Daily Dose Days Date Category Cozaar (Losartan Potassium) 50 Mg Tablet 50 Mg PO DAILY 30 10/08/18 Rx Amlodipine Besylate 5 Mg Tablet 5 Mg PO DAILY 30 10/08/18 Rx Spironolactone 50 Mg Tablet 1 Tab PO DAILY 09/23/18 Reported Metoprolol Tartrate 50 Mg Tablet 50 Mg PO DAILY07 09/09/18 Reported Metoprolol Tartrate 25 Mg Tablet 25 Mg PO QEVNG 09/09/18 Reported Aspirin Ec (Aspirin) 81 Mg Tablet.dr 81 Mg PO DAILYWBKFT 11/22/16 Rx Finasteride 5 Mg Tablet 1 Tab PO DAILY 11/21/16 Rx Tamsulosin Hcl 0.4 Mg Cap.er.24h 1 Cap PO DAILY 11/21/16 Rx Tramadol Hcl 50 Mg Tablet 1 Tab PO PRN Q6HRS 11/21/16 Rx Pradaxa (Dabigatran Etexilate Mesylate) 150 Mg Capsule 150 Mg PO BID 11/21/14 Reported Zyloprim (Allopurinol) 100 Mg Tablet 100 Mg PO DAILY 08/11/13 Reported Impression . IMPRESSION: 1. Acute on chronic hypoxemic respiratory failure. 2. Left-sided pleural effusion. 3. History of recurrent right-sided pleural effusion, status post video-assisted thoracotomy with decortication back in 09/2018. 4. Liver cirrhosis. 5. Tobacco dependence, in remission. 6. Acute exacerbation of chronic obstructive pulmonary disease. 7. Acute on chronic cor pulmonale. 8. History of atrial fibrillation. Plan . PT BETTER AFTER THORACENTSIS WILL CONTINEU THE SAME FOR NOW WILL FOLLOW UP ON ANALYSIS OF FLUID JEREMY DRAKE MD Oct 12, 2019 08:27
[2019-10-12] MEDS: metOLazone 2.5 MG TABLET PO SCH (08:44)
[2019-10-12] MEDS: SPIRONOLACTONE 25 MG TABLET PO SCH (08:44)
[2019-10-12] MEDS: LOSARTAN POTASSIUM 50 MG TABLET. PO SCH (08:44)
[2019-10-12] MEDS: amLODIPine BESYLATE 5 MG TABLET PO SCH (08:45)
[2019-10-12] MEDS ORDERED: FUROSEMIDE 20 MG TABLET PO SCH (09:00)
[2019-10-12] MEDS ORDERED: LIDOCAINE WITH 8.4% SOD BICARB 3 ML DISP.SYRIN. INJ ONE (09:00)
--- NOTE | 2019-10-12 09:12 | PDOC ---
PROGRESS NOTES Chief Complaint Chief Complaint Acute hypoxic respiratory failure - likely 2/2 pulmonary edema from CHF with concomitant moderate left pleural effusion. 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 IV Lasix. Cardiology following Recurrent right pleural effusion - s/p thoracentesis 10/11. Permanent AFIB - on metoprolol for rate control Pradaxa for stroke prophylaxis. Malignant hypertension - cont meds S/p PPM implantation (Biotronik). Recent device check with normal function. No high rates or mode switching. Cirrhosis - counseled on ETOH cessation Lactic acidosis UTI - will cont antibiotics Sepsis, poa - given empiric antibiotics Positive blood culture - with urinalysis abnormal as well, possibly has a urinary/GI source of bacteremia, will cont levaquin. Hopefully can d/c vancomycin soon History of Present Illness History of Present Illness Mr Rodas is a 79yo w/ PMHx chronic afib, COPD, smoker, recurrent pleural effusion, cirrhosis who p/w with increasing shortness of breath for 3 weeks that was progressive with temp 100.4. He was severely hypoxic, requiring NIPPV with initial ICU admission. The case was discussed with the [facility]. He is currently impending COVID-19 patient. In September of 2018 he underwent surgical intervention last year in September. He had a bronchoscopy, right sided video-assisted thoracoscopy with right thoracotomy with decortication. Thoracentesis this morning ~500cc out. He is actually off O2 completely. He is asking to go home. Notes he will still smoke 10 cigarettes per day and only have 1 beer per day if he goes home. Advised he has positive blood cultures and COVID results pending and should remain inpatient. Vitals Vitals Vital Signs Date Time Temp Pulse Resp B/P (MAP) Pulse Ox O2 Delivery O2 Flow Rate FiO2 10/12/19 08:45 58 132/62 10/12/19 07:00 97.8 20 96 Room Air 97.8 10/11/19 20:00 4.0 Physical Exam General: Alert, Oriented X3, Cooperative Lungs: Other (Decreased bilateral breath sounds, slight wheezing) Abdomen: Normal bowel sounds Extremities: No clubbing, No cyanosis Skin: No rashes, No breakdown Labs LABS Laboratory Tests Test 10/11/19 09:00 Lactic Acid Level 1.0 mmol/L (0.4-2.0) Comment Review of Relevant I have reviewed the following items anthony (where applicable) has been applied. Labs Laboratory Tests Test 10/11/19 05:03 10/11/19 05:20 10/11/19 05:26 10/11/19 09:00 White Blood Count 7.3 x10^3/uL (4.0-11.0) Red Blood Count 4.04 x10^6/uL (4.30-5.70) Hemoglobin 12.5 g/dL (13.0-17.5) Hematocrit 37.1 % (39.0-53.0) Mean Corpuscular Volume 92 fL (79-100) Mean Corpuscular Hemoglobin 31 pg (25-35) Mean Corpuscular Hemoglobin Concent 34 g/dL (31-37) Red Cell Distribution Width 17.9 % (11.5-14.5) Platelet Count 252 x10^3/uL (140-400) Neutrophils (%) (Auto) 90 % (31-73) Lymphocytes (%) (Auto) 5 % (24-48) Monocytes (%) (Auto) 5 % (0-9) Eosinophils (%) (Auto) 0 % (0-3) Basophils (%) (Auto) 1 % (0-3) Neutrophils # (Auto) 6.6 x10^3/uL (1.8-7.7) Lymphocytes # (Auto) 0.4 x10^3/uL (1.0-4.8) Monocytes # (Auto) 0.3 x10^3/uL (0.0-1.1) Eosinophils # (Auto) 0.0 x10^3/uL (0.0-0.7) Basophils # (Auto) 0.0 x10^3/uL (0.0-0.2) Segmented Neutrophils % 82 % (35-66) Band Neutrophils % 11 % (0-9) Lymphocytes % 4 % (24-48) Monocytes % 3 % (0-10) Platelet Estimate Adequate (ADEQUATE) Polychromasia Slight Anisocytosis Slight Ovalocytes Few Schistocytes Occ Sodium Level 139 mmol/L (136-145) Potassium Level 4.2 mmol/L (3.5-5.1) Chloride Level 102 mmol/L (98-107) Carbon Dioxide Level 28 mmol/L (21-32) Anion Gap 9 (6-14) Blood Urea Nitrogen 16 mg/dL (8-26) Creatinine 1.0 mg/dL (0.7-1.3) Estimated GFR (Cockcroft-Gault) 72.5 BUN/Creatinine Ratio 16 (6-20) Glucose Level 124 mg/dL (70-99) Lactic Acid Level 2.1 mmol/L (0.4-2.0) 1.0 mmol/L (0.4-2.0) Calcium Level 9.0 mg/dL (8.5-10.1) Total Bilirubin 1.5 mg/dL (0.2-1.0) Aspartate Amino Transf (AST/SGOT) 28 U/L (15-37) Alanine Aminotransferase (ALT/SGPT) 31 U/L (16-63) Alkaline Phosphatase 98 U/L (46-116) Lactate Dehydrogenase 202 U/L (85-227) Troponin I Quantitative < 0.017 ng/mL (0.000-0.055) PK-Tnb-C-Type Natriuretic Peptide 6582 pg/mL (0-449) Total Protein 6.6 g/dL (6.4-8.2) Albumin 3.4 g/dL (3.4-5.0) Albumin/Globulin Ratio 1.1 (1.0-1.7) Procalcitonin < 0.10 ng/mL (0.00-0.10) O2 Saturation 98 % (92-99) Arterial Blood pH 7.46 (7.35-7.45) Arterial Blood pH (Temp corrected) 7.43 Arterial Blood pCO2 at Patient Temp 32 mmHg (35-46) Arterial Blood pCO2 (Temp correct) 34 mmHg Arterial Blood pO2 at Patient Temp 139 mmHg (65-108) Arterial Blood pO2 (Temp corrected) 151 mmHg Arterial Blood HCO3 22 mmol/L (21-28) Arterial Blood Base Excess -1 mmol/L (-3-3) FiO2 60 Urine Collection Type Void Urine Color Yellow Urine Clarity Clear Urine pH 5.5 (<5.0-8.0) Urine Specific [place] 1.015 (1.000-1.030) Urine Protein Negative mg/dL (NEG-TRACE) Urine Glucose (UA) Negative mg/dL (NEG) Urine Ketones (Stick) Trace mg/dL (NEG) Urine Blood Negative (NEG) Urine Nitrite Positive (NEG) Urine Bilirubin Negative (NEG) Urine Urobilinogen Dipstick 0.2 mg/dL (0.2 mg/dL) Urine Leukocyte Esterase Moderate (NEG) Urine RBC 1-2 /HPF (0-2) Urine WBC >40 /HPF (0-4) Urine Squamous Epithelial Cells Occ /LPF Urine Bacteria Many /HPF (0-FEW) Urine Mucus Slight /LPF Influenza Type A Antigen Negative (NEGATIVE) Influenza Type B Antigen Negative (NEGATIVE) Laboratory Tests Test 10/11/19 09:00 Lactic Acid Level 1.0 mmol/L (0.4-2.0) Microbiology 10/11/19 Blood Culture - Preliminary, Resulted NO GROWTH AFTER 1 DAY Medications Current Medications Albuterol/ Ipratropium (Duoneb) 3 ml 1X ONCE NEB Last administered on 10/11/19at 05:35; Start 10/11/19 at 05:30; Stop 10/11/19 at 05:31; Status DC Methylprednisolone Sodium Succinate (SOLU-Medrol 125MG VIAL) 125 mg 1X ONCE IV Last administered on 10/11/19at 05:30; Start 10/11/19 at 05:30; Stop 10/11/19 at 05:31; Status DC Furosemide (Lasix) 40 mg STK-MED ONCE .ROUTE ; Start 10/11/19 at 05:05; Stop 10/11/19 at 05:05; Status DC Acetaminophen (Tylenol Supp) 650 mg 1X ONCE MS Last administered on 10/11/19at 05:30; Start 10/11/19 at 05:30; Stop 10/11/19 at 05:31; Status DC Acetaminophen (Tylenol Supp) 650 mg STK-MED ONCE .ROUTE ; Start 10/11/19 at 05:17; Stop 10/11/19 at 05:17; Status DC Levofloxacin/ Dextrose 150 ml @ 100 mls/hr 1X ONCE IV Last administered on 10/11/19at 05:43; Start 10/11/19 at 06:00; Stop 10/11/19 at 07:29; Status DC Furosemide (Lasix) 60 mg 1X ONCE IVP Last administered on 10/11/19at 05:43; Start 10/11/19 at 06:00; Stop 10/11/19 at 06:01; Status DC Levofloxacin/ Dextrose 150 ml @ As Directed STK-MED ONCE IV ; Start 10/11/19 at 05:22; Stop 10/11/19 at 05:23; Status DC Levofloxacin/ Dextrose 150 ml @ 100 mls/hr 1X ONCE IV ; Start 10/11/19 at 05:30; Stop 10/11/19 at 06:59; Status UNV Ondansetron HCl (Zofran) 4 mg PRN Q8HRS PRN IV NAUSEA/VOMITING 1ST CHOICE; Start 10/11/19 at 06:00; Stop 10/12/19 at 05:59; Status DC Morphine Sulfate (Morphine Sulfate) 2 mg PRN Q2HR PRN IV SEVERE PAIN 7-10; Start 10/11/19 at 06:00; Stop 10/12/19 at 05:59; Status DC Albuterol/ Ipratropium (Duoneb) 3 ml RTQID NEB ; Start 10/11/19 at 08:00; Stop 10/12/19 at 07:59; Status DC Vancomycin HCl (Vanco Per Pharmacy) 1 each PRN DAILY PRN MC SEE COMMENTS Last administered on 10/12/19at 07:46; Start 10/11/19 at 06:15 Vancomycin HCl 2 gm/Sodium Chloride 500 ml @ 250 mls/hr 1X ONCE IV Last administered on 10/11/19at 06:30; Start 10/11/19 at 06:30; Stop 10/11/19 at 08:29; Status DC Vancomycin HCl 1.25 gm/Sodium Chloride 250 ml @ 167 mls/hr Q12H IV Last administered on 10/12/19at 06:10; Start 10/11/19 at 19:00 Vancomycin HCl (Vancomycin Trough Level) 1 each 1X ONCE MC ; Start 10/12/19 at 18:30; Stop 10/12/19 at 18:31 Levofloxacin/ Dextrose 100 ml @ 100 mls/hr Q24H IV Last administered on 10/12/19at 05:14; Start 10/12/19 at 06:00 Lidocaine HCl (Buffered Lidocaine 1%) 3 ml STK-MED ONCE .ROUTE ; Start 10/11/19 at 13:57; Stop 10/11/19 at 13:57; Status DC Furosemide (Lasix) 40 mg 1X ONCE IVP Last administered on 10/11/19at 16:00; Start 10/11/19 at 14:15; Stop 10/11/19 at 14:16; Status DC Furosemide (Lasix) 60 mg DAILY PO Last administered on 10/12/19at 08:43; Start 10/12/19 at 09:00 Metolazone (Zaroxolyn) 5 mg DAILY PO Last administered on 10/12/19at 08:44; Start 10/11/19 at 14:30 Amlodipine Besylate (Norvasc) 5 mg DAILY PO Last administered on 10/12/19at 08:45; Start 10/11/19 at 14:30 Aspirin (Ecotrin) 81 mg DAILYWBKFT PO Last administered on 10/11/19at 15:59; Start 10/11/19 at 14:30 Dabigatran (Pradaxa) 150 mg BID PO ; Start 10/11/19 at 21:00 Finasteride (Proscar) 5 mg DAILY PO ; Start 10/11/19 at 14:30; Stop 10/11/19 at 16:24; Status DC Losartan Potassium (Cozaar) 50 mg DAILY PO Last administered on 10/12/19at 08:44; Start 10/11/19 at 14:30 Metoprolol Tartrate (Lopressor) 25 mg QEVNG PO Last administered on 10/11/19at 17:45; Start 10/11/19 at 18:00 Metoprolol Tartrate (Lopressor) 50 mg DAILY07 PO Last administered on 10/12/19at 06:15; Start 10/12/19 at 07:00 Tamsulosin HCl (Flomax) 0.4 mg DAILY PO ; Start 10/11/19 at 14:30; Stop 10/11/19 at 16:24; Status DC Spironolactone (Aldactone) 50 mg DAILY PO Last administered on 10/12/19at 08:44; Start 10/11/19 at 14:30 Finasteride (Proscar) 5 mg HS PO Last administered on 10/11/19at 21:22; Start 10/11/19 at 21:00 Tamsulosin HCl (Flomax) 0.4 mg HS PO Last administered on 10/11/19at 21:22; Start 10/11/19 at 21:00 Diphenhydramine HCl (Benadryl) 50 mg PRN QHS PRN PO INSOMNIA Last administered on 10/11/19at 21:23; Start 10/11/19 at 21:15 Info (Anti-Coagulation Monitoring By Pharmacy) 1 each PRN DAILY PRN MC SEE COMMENTS; Start 10/12/19 at 07:45 Lidocaine HCl (Buffered Lidocaine 1%) 3 ml STK-MED ONCE .ROUTE ; Start 10/12/19 at 08:16; Stop 10/12/19 at 08:16; Status DC Active Scripts Active Cozaar (Losartan Potassium) 50 Mg Tablet 50 Mg PO DAILY 30 Days Amlodipine Besylate 5 Mg Tablet 5 Mg PO DAILY 30 Days Aspirin Ec (Aspirin) 81 Mg Tablet.dr 81 Mg PO DAILYWBKFT Finasteride 5 Mg Tablet 1 Tab PO DAILY Tamsulosin Hcl 0.4 Mg Cap.er.24h 1 Cap PO DAILY Tramadol Hcl 50 Mg Tablet 1 Tab PO PRN Q6HRS Reported Spironolactone 50 Mg Tablet 1 Tab PO DAILY Metoprolol Tartrate 50 Mg Tablet 50 Mg PO DAILY07 Metoprolol Tartrate 25 Mg Tablet 25 Mg PO QEVNG Pradaxa (Dabigatran Etexilate Mesylate) 150 Mg Capsule 150 Mg PO BID Zyloprim (Allopurinol) 100 Mg Tablet 100 Mg PO DAILY Vitals/I & O Vital Sign - Last 24 Hours 10/11/19 10/11/19 10/11/19 10/11/19 10:00 11:00 11:50 12:00 Temp 99.3 99.3 Pulse 69 68 Resp 20 18 B/P (MAP) 137/61 (86) Pulse Ox 99 98 97 O2 Delivery Nasal Cannula Nasal Cannula Nasal Cannula Nasal Cannula O2 Flow Rate 4.0 4.0 3.0 4.0 10/11/19 10/11/19 10/11/19 10/11/19 12:00 13:00 14:00 15:47 Temp 98.4 98.1 98.4 98.1 Pulse 72 71 68 66 Resp 20 19 22 20 B/P (MAP) 148/73 (98) 174/72 (106) Pulse Ox 98 94 96 96 O2 Delivery Nasal Cannula Room Air Room Air Room Air O2 Flow Rate 2.0 10/11/19 10/11/19 10/11/19 10/11/19 15:58 15:59 17:45 19:08 Temp 99.0 99.0 Pulse 66 66 66 61 Resp 16 B/P (MAP) 174/72 174/72 174/72 133/63 (86) Pulse Ox 95 O2 Delivery Room Air 10/11/19 10/11/19 10/12/19 10/12/19 20:00 22:10 03:30 06:15 Temp 98.8 98.7 98.8 98.7 Pulse 66 63 63 Resp 18 18 B/P (MAP) 135/65 (88) 132/61 (84) 132/61 Pulse Ox 92 95 O2 Delivery Nasal Cannula Room Air Room Air O2 Flow Rate 4.0 10/12/19 10/12/19 10/12/19 07:00 08:44 08:45 Temp 97.8 97.8 Pulse 58 58 58 Resp 20 B/P (MAP) 132/62 (85) 132/62 132/62 Pulse Ox 96 O2 Delivery Room Air Intake and Output 10/11/19 10/11/19 10/12/19 15:00 23:00 07:00 Intake Total 900 ml 120 ml 100 ml Output Total 1850 ml 1500 ml 300 ml Balance -950 ml -1380 ml -200 ml IRMA TRAN MD Oct 12, 2019 09:12
--- NOTE | 2019-10-12 09:37 | PDOC ---
KRYZSZTOF BHANDARI APRN 10/12/19 0937: CARDIO Progress Notes Date and Time Date of Service 10/12/19 Time of Evaluation 0930 Subjective Subjective: No Chest Pain, No shortness of breath, Other (edema improved ) Vitals Vitals Vital Signs Date Time Temp Pulse Resp B/P (MAP) Pulse Ox O2 Delivery O2 Flow Rate FiO2 10/12/19 08:45 58 132/62 10/12/19 07:00 97.8 20 96 Room Air 97.8 10/11/19 20:00 4.0 Weight Weight [ ] Input and Output Intake and Output Intake and Output 10/12/19 07:00 Intake Total 1120 ml Output Total 3650 ml Balance -2530 ml Intake Oral 970 ml IV Total 150 ml Output Urine Total 3650 ml # Voids 2 Microbiology Micro Microbiology 10/11/19 Blood Culture - Preliminary, Resulted NO GROWTH AFTER 1 DAY Physical Exam HEENT: Neck Supple W Full Motion Chest: Symmetric LUNGS: Other (diminished ) Heart: S1S2, murmurs (2/6 systolic murmur ), irregularly irregular (mostly v- paced with underlying AFIB) Abdomen: Soft N/T Extremities: Other (trace bilateral LE edema ) Neurology: alert, oriented, follow commands Assessment Assessment 1. Acute on chronic respiratory failure secondary to a/c CHF, moderate left p leural effusion. s/p thoracentesis with 500cc removed 2. 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 Permanent AFIB; rate controlled 4. Accelerated hypertension; now controlled 5. S/p PPM implantation (Biotronik).v-paced with underling AFIB 6. Cirrhosis 7. Lactic acidosis, fevers, UTI Recommendations Diuresis with lasix, metolazone 2000cc FR. 2 Gm Na diet Metoprolol for rate control Resume Pradaxa for stroke prophylaxis this evening Supportive care SHIRLEY CORDERO MD 10/12/19 1730: CARDIO Progress Notes Plan Plan Pt. seen and examined. Agree with above EDUCATION TRAINER note. Supportive care. Doing much better with thoracentesis and diuresis. Thanks KRZYSZTOF BHANDARI APRN Oct 12, 2019 09:37 SHIRLEY CORDERO MD Oct 12, 2019 17:30
[2019-10-12] MEDS: DABIGATRAN ETEXILATE 150 MG CAPSULE. PO SCH ×2 (09:56→20:49)
[2019-10-12] MEDS: ASPIRIN ENTERIC COATED 81 MG TABLET.DR. PO SCH (09:56)
[2019-10-12 10:33] VITALS: BP 135/65
[2019-10-12 15:04] VITALS: BP 135/63
--- NOTE | 2019-10-12 16:07 | NUR ---
SW following. Discussed with RN, pt from home. Pt being tested for COVID-19. Results pending. SW will continue to follow.
--- NOTE | 2019-10-12 18:14 | NUR ---
Notified by Deven in ER that patient's COVID-19 screen is negative
[2019-10-12 19:38] VITALS: BP 158/67
[2019-10-12 20:23] LABS: VANC TR 26.7 mcg/mL (10.0-20.0)
--- NOTE | 2019-10-12 20:29 | NUR ---
Pharmacy Vancomycin Dosing Note S: Consulted to monitor and dose vancomycin started 10/11/19. O: TRUDY VALADEZ is a 79 year old M with Sepsis Other Antibiotics: LABS: Last BUN: 16 Last Creatinine: 1 Creatinine Clearance: 73 mL/min Last WBC: 7.3 Last Procalcitonin: < 0.1 Tmax (past 24 hours): 98.7 Microbiology: 10/10: blood cx pending I/O: 1120/ 3650 Drug Levels: Last Trough level: 26.7 on 10/12/19 at 1845 Last dose given 10/12/19 at 0610 Vancomycin Dosing: Dosing Weight: Actual Target Trough: 15-20 A: Based on: trough P: 1. Hold Vancomycin doses 2. Follow up Trough level on 10/13/19 at 1830 3. Pharmacy will continue to monitor, follow and adjust therapy as needed. Earlene Cramer RPH, 10/12/192028
[2019-10-12] MEDS: diphenhydrAMINE HCL 25 MG CAPSULE PO PRN (20:49)
[2019-10-12] MEDS: FINASTERIDE 5 MG TABLET. PO SCH (20:49)
[2019-10-12] MEDS: LACTOBACILLUS RHAMNOSUS GG 1 CAPSULE. PO SCH (20:49)
[2019-10-12] MEDS: TAMSULOSIN 0.4 MG CAP.ER.24H. PO SCH (20:50)
[2019-10-12 22:31] VITALS: BP 157/70
[2019-10-13 03:25] VITALS: BP 163/70
[2019-10-13] MEDS: METOPROLOL TART IMMED RELEASE 50 MG TABLET. PO SCH (06:31)
[2019-10-13 07:00] VITALS: BP 151/67
--- NOTE | 2019-10-13 07:12 | NUR ---
IP: Pt is COVID-19 negative and isolation may be discontinued.
--- NOTE | 2019-10-13 08:04 | RAD ---
Ultrasound-guided right-sided thoracentesis 10/13/2019 6:00 AM Indication: Left Pleural Effusion Procedure: Informed consent was obtained. A timeout procedure was performed. Sonographic evaluation of the left chest was performed demonstrating moderate pleural effusion. The left posterior chest was prepped and draped in sterile fashion. 1% lidocaine without epinephrine was administered for local anesthesia. Real-time ultrasonographic guidance was used in passing a 5 [employer] catheter into the left pleural space. 0.6 L of serosanguineous pleural fluid was removed. Samples of fluid were sent to the lab for further evaluation per ordering physician request. The catheter was removed and pressure held to achieve hemostasis. A sterile dressing was applied. No immediate complications were identified. The patient tolerated the procedure well. Impression: left sided ultrasound-guided thoracentesis
--- NOTE | 2019-10-13 08:06 | PDOC ---
PROGRESS NOTES Chief Complaint Chief Complaint Acute hypoxic respiratory failure - likely 2/2 pulmonary edema from CHF with concomitant moderate left pleural effusion. 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 IV Lasix. Cardiology following Recurrent right pleural effusion - s/p thoracentesis 10/11. Permanent AFIB - on metoprolol for rate control Pradaxa for stroke prophylaxis. Malignant hypertension - cont meds S/p PPM implantation (Biotronik). Recent device check with normal function. No high rates or mode switching. Cirrhosis - counseled on ETOH cessation Lactic acidosis UTI - will cont antibiotics Sepsis, poa - given empiric antibiotics Positive blood culture - with urinalysis abnormal as well, possibly has a urinary/GI source of bacteremia, will cont levaquin. Hopefully can d/c vancomycin soon History of Present Illness History of Present Illness Mr Rodas is a 79yo w/ PMHx chronic afib, COPD, smoker, recurrent pleural effusion, cirrhosis who p/w with increasing shortness of breath for 3 weeks that was progressive with temp 100.4. He was severely hypoxic, requiring NIPPV with initial ICU admission. The case was discussed with the Health Department. He is currently impending COVID-19 patient. In September of 2018 he underwent surgical intervention last year in September. He had a bronchoscopy, right sided video-assisted thoracoscopy with right thoracotomy with decortication. 10/11: Thoracentesis ~500cc out. He is actually off O2 completely. He is asking to go home. Notes he will still smoke 10 cigarettes per day and only have 1 beer per day if he goes home. GNR positive blood cultures and urine cultures pending 100,000 GNR as well. Feeling improved overall. pH 7.54 pleural fluid. Cultures from blood and urine still pending. SOB improved. No CP. Still with some abdominal swelling, he states it feels normal. Vitals Vitals Vital Signs Date Time Temp Pulse Resp B/P (MAP) Pulse Ox O2 Delivery O2 Flow Rate FiO2 10/13/19 07:00 98.0 51 16 151/67 (95) 95 Room Air 98.0 10/12/19 20:00 4.0 Physical Exam General: Alert, Oriented X3, Cooperative Lungs: Other (Decreased bilateral breath sounds, slight wheezing) Abdomen: Normal bowel sounds Extremities: No clubbing, No cyanosis Skin: No rashes, No breakdown Labs LABS Laboratory Tests Test 10/12/19 18:45 Vancomycin Level Trough 26.7 mcg/mL (10.0-20.0) Vancomycin Last Dose Date Unk Vancomycin Last Dose Time Unk Comment Review of Relevant I have reviewed the following items anthony (where applicable) has been applied. Labs Laboratory Tests Test 10/11/19 09:00 10/11/19 13:24 10/12/19 18:45 Lactic Acid Level 1.0 mmol/L (0.4-2.0) Body Fluid pH 7.54 Vancomycin Level Trough 26.7 mcg/mL (10.0-20.0) Vancomycin Last Dose Date Unk Vancomycin Last Dose Time Unk Laboratory Tests Test 10/12/19 18:45 Vancomycin Level Trough 26.7 mcg/mL (10.0-20.0) Vancomycin Last Dose Date Unk Vancomycin Last Dose Time Unk Microbiology 10/11/19 Urine Culture - Preliminary, Resulted 10/11/19 Urine Culture Result 1 (ALBIN) - Preliminary, Resulted 10/11/19 Blood Culture - Preliminary, Resulted NO GROWTH AFTER 2 DAYS Medications Current Medications Albuterol/ Ipratropium (Duoneb) 3 ml 1X ONCE NEB Last administered on 10/11/19at 05:35; Start 10/11/19 at 05:30; Stop 10/11/19 at 05:31; Status DC Methylprednisolone Sodium Succinate (SOLU-Medrol 125MG VIAL) 125 mg 1X ONCE IV Last administered on 10/11/19at 05:30; Start 10/11/19 at 05:30; Stop 10/11/19 at 05:31; Status DC Furosemide (Lasix) 40 mg STK-MED ONCE .ROUTE ; Start 10/11/19 at 05:05; Stop 10/11/19 at 05:05; Status DC Acetaminophen (Tylenol Supp) 650 mg 1X ONCE TN Last administered on 10/11/19at 05:30; Start 10/11/19 at 05:30; Stop 10/11/19 at 05:31; Status DC Acetaminophen (Tylenol Supp) 650 mg STK-MED ONCE .ROUTE ; Start 10/11/19 at 05:17; Stop 10/11/19 at 05:17; Status DC Levofloxacin/ Dextrose 150 ml @ 100 mls/hr 1X ONCE IV Last administered on 10/11/19at 05:43; Start 10/11/19 at 06:00; Stop 10/11/19 at 07:29; Status DC Furosemide (Lasix) 60 mg 1X ONCE IVP Last administered on 10/11/19at 05:43; Start 10/11/19 at 06:00; Stop 10/11/19 at 06:01; Status DC Levofloxacin/ Dextrose 150 ml @ As Directed STK-MED ONCE IV ; Start 10/11/19 at 05:22; Stop 10/11/19 at 05:23; Status DC Levofloxacin/ Dextrose 150 ml @ 100 mls/hr 1X ONCE IV ; Start 10/11/19 at 05:30; Stop 10/11/19 at 06:59; Status UNV Ondansetron HCl (Zofran) 4 mg PRN Q8HRS PRN IV NAUSEA/VOMITING 1ST CHOICE; S tart 10/11/19 at 06:00; Stop 10/12/19 at 05:59; Status DC Morphine Sulfate (Morphine Sulfate) 2 mg PRN Q2HR PRN IV SEVERE PAIN 7-10; Start 10/11/19 at 06:00; Stop 10/12/19 at 05:59; Status DC Albuterol/ Ipratropium (Duoneb) 3 ml RTQID NEB ; Start 10/11/19 at 08:00; Stop 10/12/19 at 07:59; Status DC Vancomycin HCl (Vanco Per Pharmacy) 1 each PRN DAILY PRN MC SEE COMMENTS Last administered on 10/12/19at 20:28; Start 10/11/19 at 06:15 Vancomycin HCl 2 gm/Sodium Chloride 500 ml @ 250 mls/hr 1X ONCE IV Last administered on 10/11/19at 06:30; Start 10/11/19 at 06:30; Stop 10/11/19 at 08:29; Status DC Vancomycin HCl 1.25 gm/Sodium Chloride 250 ml @ 167 mls/hr Q12H IV Last administered on 10/12/19at 18:28; Start 10/11/19 at 19:00; Stop 10/12/19 at 20:27; Status DC Vancomycin HCl (Vancomycin Trough Level) 1 each 1X ONCE MC ; Start 10/12/19 at 18:30; Stop 10/12/19 at 18:31; Status DC Levofloxacin/ Dextrose 100 ml @ 100 mls/hr Q24H IV Last administered on 10/13/19at 05:08; Start 10/12/19 at 06:00 Lidocaine HCl (Buffered Lidocaine 1%) 3 ml STK-MED ONCE .ROUTE ; Start 10/11/19 at 13:57; Stop 10/11/19 at 13:57; Status DC Furosemide (Lasix) 40 mg 1X ONCE IVP Last administered on 10/11/19at 16:00; Start 10/11/19 at 14:15; Stop 10/11/19 at 14:16; Status DC Furosemide (Lasix) 60 mg DAILY PO Last administered on 10/12/19at 08:43; Start 10/12/19 at 09:00; Stop 10/12/19 at 11:31; Status DC Metolazone (Zaroxolyn) 5 mg DAILY PO Last administered on 10/12/19at 08:44; Start 10/11/19 at 14:30 Amlodipine Besylate (Norvasc) 5 mg DAILY PO Last administered on 10/12/19at 08:45; Start 10/11/19 at 14:30 Aspirin (Ecotrin) 81 mg DAILYWBKFT PO Last administered on 10/12/19at 09:56; Start 10/11/19 at 14:30 Dabigatran (Pradaxa) 150 mg BID PO Last administered on 10/12/19at 20:49; Start 10/11/19 at 21:00 Finasteride (Proscar) 5 mg DAILY PO ; Start 10/11/19 at 14:30; Stop 10/11/19 at 16:24; Status DC Losartan Potassium (Cozaar) 50 mg DAILY PO Last administered on 10/12/19at 08:44; Start 10/11/19 at 14:30 Metoprolol Tartrate (Lopressor) 25 mg QEVNG PO Last administered on 10/12/19at 18:24; Start 10/11/19 at 18:00 Metoprolol Tartrate (Lopressor) 50 mg DAILY07 PO Last administered on 10/13/19at 06:31; Start 10/12/19 at 07:00 Tamsulosin HCl (Flomax) 0.4 mg DAILY PO ; Start 10/11/19 at 14:30; Stop 10/11/19 at 16:24; Status DC Spironolactone (Aldactone) 50 mg DAILY PO Last administered on 10/12/19at 08:44; Start 10/11/19 at 14:30 Finasteride (Proscar) 5 mg HS PO Last administered on 10/12/19at 20:49; Start 10/11/19 at 21:00 Tamsulosin HCl (Flomax) 0.4 mg HS PO Last administered on 10/12/19at 20:50; Start 10/11/19 at 21:00 Diphenhydramine HCl (Benadryl) 50 mg PRN QHS PRN PO INSOMNIA Last administered on 10/12/19at 20:49; Start 10/11/19 at 21:15 Info (Anti-Coagulation Monitoring By Pharmacy) 1 each PRN DAILY PRN MC SEE COMMENTS; Start 10/12/19 at 07:45 Lidocaine HCl (Buffered Lidocaine 1%) 3 ml STK-MED ONCE .ROUTE ; Start 10/12/19 at 08:16; Stop 10/12/19 at 08:16; Status DC Lidocaine HCl (Buffered Lidocaine 1%) 3 ml 1X ONCE INJ Last administered on 10/12/19at 08:54; Start 10/12/19 at 09:00; Stop 10/12/19 at 09:01; Status DC Lactobacillus Rhamnosus (Culturelle) 1 cap BID PO Last administered on 10/12/19at 20:49; Start 10/12/19 at 21:00 Furosemide (Lasix) 40 mg DAILY PO ; Start 10/13/19 at 09:00 Vancomycin HCl (Vancomycin Trough Level) 1 each 1X ONCE MC ; Start 10/13/19 at 18:30; Stop 10/13/19 at 18:31 Active Scripts Active Cozaar (Losartan Potassium) 50 Mg Tablet 50 Mg PO DAILY 30 Days Amlodipine Besylate 5 Mg Tablet 5 Mg PO DAILY 30 Days Aspirin Ec (Aspirin) 81 Mg Tablet.dr 81 Mg PO DAILYWBKFT Finasteride 5 Mg Tablet 1 Tab PO DAILY Tamsulosin Hcl 0.4 Mg Cap.er.24h 1 Cap PO DAILY Tramadol Hcl 50 Mg Tablet 1 Tab PO PRN Q6HRS Reported Spironolactone 50 Mg Tablet 1 Tab PO DAILY Metoprolol Tartrate 50 Mg Tablet 50 Mg PO DAILY07 Metoprolol Tartrate 25 Mg Tablet 25 Mg PO QEVNG Pradaxa (Dabigatran Etexilate Mesylate) 150 Mg Capsule 150 Mg PO BID Zyloprim (Allopurinol) 100 Mg Tablet 100 Mg PO DAILY Vitals/I & O Vital Sign - Last 24 Hours 10/12/19 10/12/19 10/12/19 10/12/19 08:44 08:45 10:33 15:04 Temp 96.9 98.3 96.9 98.3 Pulse 58 58 55 64 Resp 20 18 B/P (MAP) 132/62 132/62 135/65 (88) 135/63 (87) Pulse Ox 95 95 O2 Delivery Room Air Room Air 10/12/19 10/12/19 10/12/19 10/12/19 18:24 19:38 20:00 22:31 Temp 97.9 98.0 97.9 98.0 Pulse 64 56 51 Resp 16 16 B/P (MAP) 135/63 158/67 (97) 157/70 (99) Pulse Ox 95 97 O2 Delivery Room Air Nasal Cannula Room Air O2 Flow Rate 4.0 10/13/19 10/13/19 10/13/19 03:25 06:31 07:00 Temp 97.6 98.0 97.6 98.0 Pulse 55 55 51 Resp 16 16 B/P (MAP) 163/70 (101) 163/70 151/67 (95) Pulse Ox 96 95 O2 Delivery Room Air Room Air Intake and Output 10/12/19 10/12/19 10/13/19 15:00 23:00 07:00 Intake Total 360 ml 240 ml 320 ml Output Total 1050 ml 2175 ml 1750 ml Balance -690 ml -1935 ml -1430 ml IRMA TRAN MD Oct 13, 2019 08:06
[2019-10-13] MEDS: ASPIRIN ENTERIC COATED 81 MG TABLET.DR. PO SCH (08:24)
[2019-10-13] MEDS: FUROSEMIDE 20 MG TABLET PO SCH (08:24)
[2019-10-13] MEDS: metOLazone 2.5 MG TABLET PO SCH (08:24)
[2019-10-13] MEDS: SPIRONOLACTONE 25 MG TABLET PO SCH (08:25)
[2019-10-13] MEDS: amLODIPine BESYLATE 5 MG TABLET PO SCH (08:25)
[2019-10-13] MEDS: LACTOBACILLUS RHAMNOSUS GG 1 CAPSULE. PO SCH ×2 (08:25→21:14)
[2019-10-13] MEDS: LOSARTAN POTASSIUM 50 MG TABLET. PO SCH (08:25)
[2019-10-13] MEDS: DABIGATRAN ETEXILATE 150 MG CAPSULE. PO SCH ×2 (08:25→21:14)
[2019-10-13 08:40] LABS: BASO % 0 % (0-3); EOS # 0.1 x10^3/uL (0.0-0.7); EOS % 1 % (0-3); HEMATOCRIT 33.7 % (39.0-53.0); HEMOGLOBIN 11.3 g/dL (13.0-17.5); LYMPH # 0.8 x10^3/uL (1.0-4.8); LYMPH % 10 % (24-48); MEAN CORPUSCULAR HEMOGLOBIN 31 pg (25-35); MEAN CORPUSCULAR HGB CONC 34 g/dL (31-37); MEAN CORPUSCULAR VOLUME 91 fL (79-100); MONO # 0.9 x10^3/uL (0.0-1.1); MONO % 11 % (0-9); NEUT # 6.6 x10^3/uL (1.8-7.7); NEUT % 78 % (31-73); PLATELET COUNT 285 x10^3/uL (140-400); RED BLOOD COUNT 3.71 x10^6/uL (4.30-5.70); RED CELL DISTRIBUTION WIDTH 17.7 % (11.5-14.5); WHITE BLOOD COUNT 8.5 x10^3/uL (4.0-11.0)
--- NOTE | 2019-10-13 09:06 | PDOC ---
PULMONARY PROGRESS NOTES Subjective PT FEELS BETTER LESS SOA Vitals Vital Signs Date Time Temp Pulse Resp B/P (MAP) Pulse Ox O2 Delivery O2 Flow Rate FiO2 10/13/19 08:25 51 151/67 10/13/19 07:00 98.0 16 95 Room Air 98.0 10/12/19 20:00 4.0 ROS: No Nausea, No Chest Pain, No Abdominal Pain, No Increase Cough General: Alert, No acute distress Lungs: Other (Decreased bilateral breath sounds, slight wheezing) Cardiovascular: S1, S2 Abdomen: Soft, Non-tender Neuro Exam: Alert Extremities: No Edema Skin: Warm Labs Laboratory Tests Test 10/11/19 13:24 10/12/19 18:45 10/13/19 08:20 Body Fluid pH 7.54 Vancomycin Level Trough 26.7 mcg/mL (10.0-20.0) Vancomycin Last Dose Date Unk Vancomycin Last Dose Time Unk White Blood Count 8.5 x10^3/uL (4.0-11.0) Red Blood Count 3.71 x10^6/uL (4.30-5.70) Hemoglobin 11.3 g/dL (13.0-17.5) Hematocrit 33.7 % (39.0-53.0) Mean Corpuscular Volume 91 fL (79-100) Mean Corpuscular Hemoglobin 31 pg (25-35) Mean Corpuscular Hemoglobin Concent 34 g/dL (31-37) Red Cell Distribution Width 17.7 % (11.5-14.5) Platelet Count 285 x10^3/uL (140-400) Neutrophils (%) (Auto) 78 % (31-73) Lymphocytes (%) (Auto) 10 % (24-48) Monocytes (%) (Auto) 11 % (0-9) Eosinophils (%) (Auto) 1 % (0-3) Basophils (%) (Auto) 0 % (0-3) Neutrophils # (Auto) 6.6 x10^3/uL (1.8-7.7) Lymphocytes # (Auto) 0.8 x10^3/uL (1.0-4.8) Monocytes # (Auto) 0.9 x10^3/uL (0.0-1.1) Eosinophils # (Auto) 0.1 x10^3/uL (0.0-0.7) Basophils # (Auto) 0.0 x10^3/uL (0.0-0.2) Laboratory Tests Test 10/12/19 18:45 10/13/19 08:20 Vancomycin Level Trough 26.7 mcg/mL (10.0-20.0) Vancomycin Last Dose Date Unk Vancomycin Last Dose Time Unk White Blood Count 8.5 x10^3/uL (4.0-11.0) Red Blood Count 3.71 x10^6/uL (4.30-5.70) Hemoglobin 11.3 g/dL (13.0-17.5) Hematocrit 33.7 % (39.0-53.0) Mean Corpuscular Volume 91 fL (79-100) Mean Corpuscular Hemoglobin 31 pg (25-35) Mean Corpuscular Hemoglobin Concent 34 g/dL (31-37) Red Cell Distribution Width 17.7 % (11.5-14.5) Platelet Count 285 x10^3/uL (140-400) Neutrophils (%) (Auto) 78 % (31-73) Lymphocytes (%) (Auto) 10 % (24-48) Monocytes (%) (Auto) 11 % (0-9) Eosinophils (%) (Auto) 1 % (0-3) Basophils (%) (Auto) 0 % (0-3) Neutrophils # (Auto) 6.6 x10^3/uL (1.8-7.7) Lymphocytes # (Auto) 0.8 x10^3/uL (1.0-4.8) Monocytes # (Auto) 0.9 x10^3/uL (0.0-1.1) Eosinophils # (Auto) 0.1 x10^3/uL (0.0-0.7) Basophils # (Auto) 0.0 x10^3/uL (0.0-0.2) Medications Active Scripts Medications Dose Route/Sig Max Daily Dose Days Date Category Cozaar (Losartan Potassium) 50 Mg Tablet 50 Mg PO DAILY 30 10/08/18 Rx Amlodipine Besylate 5 Mg Tablet 5 Mg PO DAILY 30 10/08/18 Rx Spironolactone 50 Mg Tablet 1 Tab PO DAILY 09/23/18 Reported Metoprolol Tartrate 50 Mg Tablet 50 Mg PO DAILY07 09/09/18 Reported Metoprolol Tartrate 25 Mg Tablet 25 Mg PO QEVNG 09/09/18 Reported Aspirin Ec (Aspirin) 81 Mg Tablet.dr 81 Mg PO DAILYWBKFT 11/22/16 Rx Finasteride 5 Mg Tablet 1 Tab PO DAILY 11/21/16 Rx Tamsulosin Hcl 0.4 Mg Cap.er.24h 1 Cap PO DAILY 11/21/16 Rx Tramadol Hcl 50 Mg Tablet 1 Tab PO PRN Q6HRS 11/21/16 Rx Pradaxa (Dabigatran Etexilate Mesylate) 150 Mg Capsule 150 Mg PO BID 11/21/14 Reported Zyloprim (Allopurinol) 100 Mg Tablet 100 Mg PO DAILY 08/11/13 Reported Impression . IMPRESSION: 1. Acute on chronic hypoxemic respiratory failure. 2. Left-sided pleural effusion. 3. History of recurrent right-sided pleural effusion, status post video-assisted thoracotomy with decortication back in 09/2018. 4. Liver cirrhosis. 5. Tobacco dependence, in remission. 6. Acute exacerbation of chronic obstructive pulmonary disease. 7. Acute on chronic cor pulmonale. 8. History of atrial fibrillation. 9. HYPOKALEMIA Plan . REPLACE CRTICAL K 2.9 IF AND MONITOR HOPEFULLY DC IN AM PT BETTER AFTER THORACENTSIS WALKING IN HALLWAY WILL CONTINEU THE SAME FOR NOW WILL FOLLOW UP ON ANALYSIS OF FLUID LOOKS TRANSUDATE BASED ON PROTEIN JEREMY DRAKE MD Oct 13, 2019 09:06
[2019-10-13 09:18] LABS: ALBUMIN 2.7 g/dL (3.4-5.0); ALBUMIN/GLOBULIN RATIO 0.9 (1.0-1.7); GFR 72.5; TOTAL PROTEIN 5.6 g/dL (6.4-8.2)
[2019-10-13 09:29] LABS: POTASSIUM 2.9 mmol/L (3.5-5.1)
[2019-10-13] MEDS ORDERED: POTASSIUM CHLORIDE 20 MEQ TABLET.ER. PO ONE (09:30)
[2019-10-13] MEDS: POTASSIUM CHLORIDE 10MEQ 100 ML IV SCH ×2 (10:30→10:31)
[2019-10-13 10:40] VITALS: BP 156/71
--- NOTE | 2019-10-13 14:06 | PATHOLOGY ---
Note [facility] Accession Number: [id number] TESTS RESULT FLAG UNITS REF RANGE LAB Clinician Provided Cytology Information No. of containers..01 Other (Miscellaneous) Source: LEFT PLEURAL FLUID DIAGNOSIS: LEFT PLEURAL FLUID NEGATIVE FOR MALIGNANT CELLS. REACTIVE MESOTHELIAL CELLS ARE PRESENT. THIS INTERPRETATION INCLUDES EVALUATION OF A CELL BLOCK. Signed out by: 02 Rayshawn Atkinson MD, Pathologist NPI- [id number] Performed by: Gill Richards, Production Reproduction Manager ([facility]) Gross description: 30ML, ORANGE, 1TP 1CB /LCS 10/12/2019 1738 Local FLAG LEGEND: L-Low Normal,H-High Normal,LL-Alert Low,HH-Alert High <-Panic Low,>-Panic High,A-Abnormal,AA-Critical Abnormal Performed at: [address] [place] [address] Dante Arteaga MD, [address] [address] Rayshawn Atkinson MD, Specimen Comment: A duplicate report has been generated due to demographic updates. Performed at: [address], [place], [place] [id number] MD Dante Arteaga MD Phone: [phone]
[2019-10-13 15:18] VITALS: BP 142/67
--- NOTE | 2019-10-13 15:21 | NUR ---
SS following up with discharge planning. Per pt's RN, COVID19 test negative. SS will continue to follow for discharge planning.
--- NOTE | 2019-10-13 16:57 | PDOC ---
KRZYSZTOF BHANDARI MOTHERS HELPER 10/13/19 1657: CARDIO Progress Notes Date and Time Date of Service 10/13/19 Time of Evaluation 1510 Subjective Subjective: No Chest Pain, No shortness of breath, No Palpitations, No Dizziness Vitals Vitals Vital Signs Date Time Temp Pulse Resp B/P (MAP) Pulse Ox O2 Delivery O2 Flow Rate FiO2 10/13/19 15:18 97.2 66 18 142/67 (92) 95 Room Air 97.2 10/12/19 20:00 4.0 Weight Weight [ ] Input and Output Intake and Output Intake and Output 10/13/19 07:00 Intake Total 920 ml Output Total 4975 ml Balance -4055 ml Intake Oral 820 ml IV Total 100 ml Output Urine Total 4975 ml Laboratory Labs Laboratory Tests Test 10/12/19 18:45 10/13/19 08:20 Vancomycin Level Trough 26.7 mcg/mL (10.0-20.0) Vancomycin Last Dose Date Unk Vancomycin Last Dose Time Unk White Blood Count 8.5 x10^3/uL (4.0-11.0) Red Blood Count 3.71 x10^6/uL (4.30-5.70) Hemoglobin 11.3 g/dL (13.0-17.5) Hematocrit 33.7 % (39.0-53.0) Mean Corpuscular Volume 91 fL (79-100) Mean Corpuscular Hemoglobin 31 pg (25-35) Mean Corpuscular Hemoglobin Concent 34 g/dL (31-37) Red Cell Distribution Width 17.7 % (11.5-14.5) Platelet Count 285 x10^3/uL (140-400) Neutrophils (%) (Auto) 78 % (31-73) Lymphocytes (%) (Auto) 10 % (24-48) Monocytes (%) (Auto) 11 % (0-9) Eosinophils (%) (Auto) 1 % (0-3) Basophils (%) (Auto) 0 % (0-3) Neutrophils # (Auto) 6.6 x10^3/uL (1.8-7.7) Lymphocytes # (Auto) 0.8 x10^3/uL (1.0-4.8) Monocytes # (Auto) 0.9 x10^3/uL (0.0-1.1) Eosinophils # (Auto) 0.1 x10^3/uL (0.0-0.7) Basophils # (Auto) 0.0 x10^3/uL (0.0-0.2) Sodium Level 140 mmol/L (136-145) Potassium Level 2.9 mmol/L (3.5-5.1) Chloride Level 103 mmol/L (98-107) Carbon Dioxide Level 32 mmol/L (21-32) Anion Gap 5 (6-14) Blood Urea Nitrogen 19 mg/dL (8-26) Creatinine 1.0 mg/dL (0.7-1.3) Estimated GFR (Cockcroft-Gault) 72.5 BUN/Creatinine Ratio 19 (6-20) Glucose Level 82 mg/dL (70-99) Calcium Level 9.0 mg/dL (8.5-10.1) Magnesium Level 1.6 mg/dL (1.8-2.4) Total Bilirubin 1.0 mg/dL (0.2-1.0) Aspartate Amino Transf (AST/SGOT) 22 U/L (15-37) Alanine Aminotransferase (ALT/SGPT) 27 U/L (16-63) Alkaline Phosphatase 68 U/L (46-116) Total Protein 5.6 g/dL (6.4-8.2) Albumin 2.7 g/dL (3.4-5.0) Albumin/Globulin Ratio 0.9 (1.0-1.7) Microbiology Micro Microbiology 10/11/19 Urine Culture - Final, Complete 10/11/19 Urine Culture Result 1 (ALBIN) - Final, Complete 10/11/19 Antimicrobic Susceptibility - Final, Complete 10/11/19 Blood Culture - Preliminary, Resulted NO GROWTH AFTER 2 DAYS Physical Exam HEENT: Neck Supple W Full Motion Chest: Symmetric LUNGS: Other (diminished ) Heart: S1S2, murmurs (2/6 systolic murmur ), irregularly irregular (mostly v- paced with underlying AFIB) Abdomen: Soft N/T Extremities: Other (trace bilateral LE edema ) Neurology: alert, oriented, follow commands Assessment Assessment 1. Acute on chronic respiratory failure secondary to a/c CHF, moderate left pleural effusion. s/p thoracentesis with 500cc removed 2. 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 appears compensated 3. Permanent AFIB; rate controlled 4. Accelerated hypertension; now controlled 5. S/p PPM implantation (Biotronik).v-paced with underling AFIB 6. Lactic acidosis, fevers, UTI. COVID negative Recommendations Oral Lasix therapy Will discontinue metolazone upon discharge Metoprolol for rate control Pradaxa for stroke prophylaxis May discharge tomorrow F/u in our office with Dr. Gaitan in 3-4 months Supportive care SHIRLEY CORDERO MD 10/13/19 1855: CARDIO Progress Notes Plan Plan Patient seen and examined. Agree with above nurse practitioner note. Overall doing very well. Okay to discharge tomorrow from a cardiac perspective. KRZYSZTOF BHANDARI APRN Oct 13, 2019 16:57 SHIRLEY CORDERO MD Oct 13, 2019 18:55
[2019-10-13] MEDS: METOPROLOL TART IMMED RELEASE 25 MG TABLET. PO SCH (17:32)
[2019-10-13] MEDS ORDERED: MAGNESIUM SULFATE 4GM 100 ML IV ONE (18:00)
[2019-10-13 19:25] VITALS: BP 149/67
[2019-10-13] MEDS: TAMSULOSIN 0.4 MG CAP.ER.24H. PO SCH (21:14)
[2019-10-13] MEDS: diphenhydrAMINE HCL 25 MG CAPSULE PO PRN (21:14)
[2019-10-13] MEDS: FINASTERIDE 5 MG TABLET. PO SCH (21:14)
[2019-10-13 23:00] VITALS: BP 140/69
[2019-10-14 02:58] VITALS: BP 154/67
[2019-10-14] MEDS: METOPROLOL TART IMMED RELEASE 50 MG TABLET. PO SCH (06:29)
[2019-10-14 07:00] VITALS: BP 147/71
[2019-10-14] MEDS: DABIGATRAN ETEXILATE 150 MG CAPSULE. PO SCH (08:34)
[2019-10-14] MEDS: LOSARTAN POTASSIUM 50 MG TABLET. PO SCH (08:34)
[2019-10-14] MEDS: amLODIPine BESYLATE 5 MG TABLET PO SCH (08:34)
[2019-10-14] MEDS: ASPIRIN ENTERIC COATED 81 MG TABLET.DR. PO SCH (08:35)
[2019-10-14] MEDS: SPIRONOLACTONE 25 MG TABLET PO SCH (08:35)
[2019-10-14] MEDS: LACTOBACILLUS RHAMNOSUS GG 1 CAPSULE. PO SCH (08:35)
[2019-10-14] MEDS ORDERED: metOLazone 2.5 MG TABLET PO SCH (09:00)
[2019-10-14 10:48] VITALS: BP 137/76
--- NOTE | 2019-10-14 11:37 | PDOC ---
[facility] [facility] PROGRESS NOTE Chief Complaint Chief Complaint Multifactorial respiratory failure History of Present Illness History of Present Illness Mr Rodas is a 79yo w/ PMHx chronic afib, COPD, smoker, recurrent pleural effusion, cirrhosis who p/w with increasing shortness of breath for 3 weeks that was progressive with temp 100.4. He was severely hypoxic, requiring NIPPV with initial ICU admission. The case was discussed with the Health Department. He is currently impending COVID-19 patient. In September of 2018 he underwent surgical intervention last year in September. He had a bronchoscopy, right sided video-assisted thoracoscopy with right thoracotomy with decortication. 10/11: Thoracentesis ~500cc out. He is actually off O2 completely. He is asking to go home. Notes he will still smoke 10 cigarettes per day and only have 1 beer per day if he goes home. GNR positive blood cultures and urine cultures pending 100,000 GNR as well. Feeling improved overall. pH 7.54 pleural fluid. Cultures from blood and urine still pending. SOB improved. No CP. Still with some abdominal swelling, he states it feels normal. [id number] Patient seen and examined Discussed with RN and Dr. Barone Discharge later today if potassium has normalized Vitals/I&O Vitals/I&O: Vital Signs Date Time Temp Pulse Resp B/P (MAP) Pulse Ox O2 Delivery O2 Flow Rate FiO2 10/14/19 10:48 97.0 53 18 137/76 (96) 96 Room Air 97.0 I & O 10/13/19 10/13/19 10/14/19 15:00 23:00 07:00 Intake Total 480 ml 240 ml 150 ml Output Total 600 ml 500 ml 300 ml Balance -120 ml -260 ml -150 ml Physical Exam General: Alert, Oriented X3, Cooperative Heart: Regular rate, Normal S1 Lungs: Clear, Other (Decreased bilateral breath sounds, slight wheezing) Abdomen: Normal bowel sounds Extremities: No clubbing, No cyanosis Skin: No rashes, No breakdown Labs Labs: Pending Review of Systems Review of Systems: No complaints request to go home Assessment and Plan Assessmemt and Plan Acute hypoxic respiratory failure - likely 2/2 pulmonary edema from CHF with concomitant moderate left pleural effusion. 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 IV Lasix. Cardiology following Recurrent right pleural effusion - s/p thoracentesis 10/11. Permanent AFIB - on metoprolol for rate control Pradaxa for stroke prophylaxis. Malignant hypertension - cont meds S/p PPM implantation (Biotronik). Recent device check with normal function. No high rates or mode switching. Cirrhosis - counseled on ETOH cessation Lactic acidosis UTI - will cont antibiotics Sepsis, poa - given empiric antibiotics Positive blood culture - with urinalysis abnormal as well, possibly has a urinary/GI source of bacteremia, will cont levaquin. Hopefully can d/c vancomy torres soon Hypokalemia resolving Plan is probable discharge is afternoon For now will continue home meds DVT prophylaxis Full code Comment Review of Relevant I have reviewed the following items anthony (where applicable) has been applied. Medications: Current Medications Medications (Trade) Dose Ordered Sig/Karime Route PRN Reason Start Time Stop Time Status Last Admin Dose Admin Metolazone (Zaroxolyn) 2.5 mg DAILY PO 10/14/19 09:00 10/14/19 08:34 Magnesium Sulfate 100 ml @ 25 mls/hr 1X ONCE IV 10/13/19 18:00 10/13/19 21:59 DC 10/13/19 17:32 VALERY GOODEN III DO Oct 14, 2019 11:37
--- NOTE | 2019-10-14 12:04 | PDOC ---
CARDIOLOGY PROGRESS NOTE SUBJECTIVE: No acute events overnight. Doing well. Denies any chest pain/dyspnea. OBJECTIVE: Vital Signs/I&O: Vital Signs Date Time Temp Pulse Resp B/P (MAP) Pulse Ox O2 Delivery O2 Flow Rate FiO2 10/14/19 10:48 97.0 53 18 137/76 (96) 96 Room Air 97.0 I & O 10/13/19 10/13/19 10/14/19 15:00 23:00 07:00 Intake Total 480 ml 240 ml 150 ml Output Total 600 ml 500 ml 300 ml Balance -120 ml -260 ml -150 ml Objective: GEN.: No apparent distress. Alert and oriented. HEENT: Head is normocephalic, atraumatic NECK: Supple. LUNGS: Clear to auscultation. HEART: irr irr, S1, S2 present. Peripheral pulses intact ABDOMEN: Soft, nontender. Positive bowel sounds. EXTREMITIES: Without any cyanosis. NEUROLOGIC: Normal speech, normal tone PSYCHIATRIC: Normal affect, normal mood. SKIN: No ulcerations CURRENT MEDICATIONS: Meds reviewed On losartan, spironolactone, metoprolol, pradaxa, lasix and metolazone. DIAGNOSTIC TESTING: labs pending ASSESSMENT: 1. Acute on chronic systolic and diastolic HF. EF 40-45% 2. Chronic afib s/p single chamber pacer for bradycardia. 3. Cirrhosis 4. CKD 5. HTN PLAN: 1. Stop metolazone on discharge. continue other home meds. Metoprolol decreased to 25mg p.o bid. Will need close f/u with labs with PCP. Thanks. He will see us in the office in 3 months SHIRLEY CORDERO MD Oct 14, 2019 12:04
--- NOTE | 2019-10-14 12:10 | DS ---
DATE OF DISCHARGE: 10/14/2019 ADMISSION DIAGNOSIS: Multifactorial respiratory failure secondary to chronic obstructive pulmonary disease and pleural effusions and possible pneumonia. DISCHARGE DIAGNOSES: Resolving respiratory failure, resolving chronic obstructive pulmonary disease, resolving effusions, COVID-19 negative testing. gram-negative bacteremia. CONSULTS: Cardiology and Pulmonary. PROCEDURES: Thoracentesis. HOSPITAL COURSE: The patient is a pleasant middle-aged male, who presented with pleural effusion, shortness of breath, COPD, CHF and possible pneumonia. He was admitted. We gave him IV Lasix, IV antibiotics, breathing treatments, oxygen. The above consults were obtained. He got a thoracentesis. Pathology report is negative for malignant cells. The COVID-9 testing is negative today, I saw and examined the patient is up in the chair, requesting discharge. I spoke with my partner, Dr. Amaral who left the prescription for the antibiotics. I talked to the nurse. Chart reviewed. Overall, he looks great. We plan to discharge with close outpatient followup (we are awaiting his potassium level later today, but it should be back soon. DISPOSITION: Home. ACTIVITY: As tolerated. DIET: Low sodium. MEDICATIONS: Please see MRAD. OWENL Marj GOODEN DO DR: GYPSY/ryan JOB#: [id number] / [id number]
[2019-10-14] MEDS ORDERED: METO2.5T PO (12:50)
[2019-10-14] MEDS ORDERED: LACT1CAP21 PO (12:50)
[2019-10-14] MEDS ORDERED: FURO-68 PO (12:50)
[2019-10-14] MEDS ORDERED: METO25TA4 PO (12:51)
[2019-10-14] MEDS ORDERED: LEVO500T59 PO (12:51)
[2019-10-14 13:07] LABS: CALCIUM 9.1 mg/dL (8.5-10.1); CREATININE 1.2 mg/dL (0.7-1.3); GFR 58.7; POTASSIUM 3.7 mmol/L (3.5-5.1)
--- NOTE | 2019-10-14 13:30 | NUR ---
Discharge Note: TRUDY VALADEZ [address] Discharge instructions and discharge home medications reviewed with Patient and a copy given. All questions have been answered and understanding verbalized. Medications called to pharmacy. Levofloxacin prescription given to patient. All belongings taken with patient upon discharge. The following instructions and handouts were given: respiratory failure, copd, and levofloxacin Discontinued lines and drains: Peripheral IV intact x2 Patient discharged to Home or Self Care with Self via Ambulated
[2019-10-14] MEDS: FUROSEMIDE 20 MG TABLET PO SCH (13:32)
--- NOTE | 2019-10-14 16:28 | PDOC ---
PULMONARY PROGRESS NOTES Subjective BETTER WANTS TO GO HOME Vitals Vital Signs Date Time Temp Pulse Resp B/P (MAP) Pulse Ox O2 Delivery O2 Flow Rate FiO2 10/14/19 10:48 97.0 53 18 137/76 (96) 96 Room Air 97.0 ROS: No Nausea, No Chest Pain, No Abdominal Pain, No Increase Cough General: Alert, No acute distress Lungs: Clear, Other (Decreased bilateral breath sounds, slight wheezing) Cardiovascular: S1, S2 Abdomen: Soft, Non-tender Neuro Exam: Alert Extremities: No Edema Skin: Warm Labs Laboratory Tests Test 10/12/19 18:45 10/13/19 08:20 10/14/19 12:45 Vancomycin Level Trough 26.7 mcg/mL (10.0-20.0) Vancomycin Last Dose Date Unk Vancomycin Last Dose Time Unk White Blood Count 8.5 x10^3/uL (4.0-11.0) Red Blood Count 3.71 x10^6/uL (4.30-5.70) Hemoglobin 11.3 g/dL (13.0-17.5) Hematocrit 33.7 % (39.0-53.0) Mean Corpuscular Volume 91 fL (79-100) Mean Corpuscular Hemoglobin 31 pg (25-35) Mean Corpuscular Hemoglobin Concent 34 g/dL (31-37) Red Cell Distribution Width 17.7 % (11.5-14.5) Platelet Count 285 x10^3/uL (140-400) Neutrophils (%) (Auto) 78 % (31-73) Lymphocytes (%) (Auto) 10 % (24-48) Monocytes (%) (Auto) 11 % (0-9) Eosinophils (%) (Auto) 1 % (0-3) Basophils (%) (Auto) 0 % (0-3) Neutrophils # (Auto) 6.6 x10^3/uL (1.8-7.7) Lymphocytes # (Auto) 0.8 x10^3/uL (1.0-4.8) Monocytes # (Auto) 0.9 x10^3/uL (0.0-1.1) Eosinophils # (Auto) 0.1 x10^3/uL (0.0-0.7) Basophils # (Auto) 0.0 x10^3/uL (0.0-0.2) Sodium Level 140 mmol/L (136-145) 137 mmol/L (136-145) Potassium Level 2.9 mmol/L (3.5-5.1) 3.7 mmol/L (3.5-5.1) Chloride Level 103 mmol/L (98-107) 99 mmol/L (98-107) Carbon Dioxide Level 32 mmol/L (21-32) 34 mmol/L (21-32) Anion Gap 5 (6-14) 4 (6-14) Blood Urea Nitrogen 19 mg/dL (8-26) 22 mg/dL (8-26) Creatinine 1.0 mg/dL (0.7-1.3) 1.2 mg/dL (0.7-1.3) Estimated GFR (Cockcroft-Gault) 72.5 58.7 BUN/Creatinine Ratio 19 (6-20) Glucose Level 82 mg/dL (70-99) 116 mg/dL (70-99) Calcium Level 9.0 mg/dL (8.5-10.1) 9.1 mg/dL (8.5-10.1) Magnesium Level 1.6 mg/dL (1.8-2.4) Total Bilirubin 1.0 mg/dL (0.2-1.0) Aspartate Amino Transf (AST/SGOT) 22 U/L (15-37) Alanine Aminotransferase (ALT/SGPT) 27 U/L (16-63) Alkaline Phosphatase 68 U/L (46-116) Total Protein 5.6 g/dL (6.4-8.2) Albumin 2.7 g/dL (3.4-5.0) Albumin/Globulin Ratio 0.9 (1.0-1.7) Laboratory Tests Test 10/14/19 12:45 Sodium Level 137 mmol/L (136-145) Potassium Level 3.7 mmol/L (3.5-5.1) Chloride Level 99 mmol/L (98-107) Carbon Dioxide Level 34 mmol/L (21-32) Anion Gap 4 (6-14) Blood Urea Nitrogen 22 mg/dL (8-26) Creatinine 1.2 mg/dL (0.7-1.3) Estimated GFR (Cockcroft-Gault) 58.7 Glucose Level 116 mg/dL (70-99) Calcium Level 9.1 mg/dL (8.5-10.1) Medications Active Scripts Medications Dose Route/Sig Max Daily Dose Days Date Category Cozaar (Losartan Potassium) 50 Mg Tablet 50 Mg PO DAILY 30 10/08/18 Rx Amlodipine Besylate 5 Mg Tablet 5 Mg PO DAILY 30 10/08/18 Rx Spironolactone 50 Mg Tablet 1 Tab PO DAILY 09/23/18 Reported Metoprolol Tartrate 50 Mg Tablet 50 Mg PO DAILY07 09/09/18 Reported Metoprolol Tartrate 25 Mg Tablet 25 Mg PO QEVNG 09/09/18 Reported Aspirin Ec (Aspirin) 81 Mg Tablet.dr 81 Mg PO DAILYWBKFT 11/22/16 Rx Finasteride 5 Mg Tablet 1 Tab PO DAILY 11/21/16 Rx Tamsulosin Hcl 0.4 Mg Cap.er.24h 1 Cap PO DAILY 11/21/16 Rx Tramadol Hcl 50 Mg Tablet 1 Tab PO PRN Q6HRS 11/21/16 Rx Pradaxa (Dabigatran Etexilate Mesylate) 150 Mg Capsule 150 Mg PO BID 11/21/14 Reported Zyloprim (Allopurinol) 100 Mg Tablet 100 Mg PO DAILY 08/11/13 Reported Impression . IMPRESSION: 1. Acute on chronic hypoxemic respiratory failure. 2. Left-sided pleural effusion. 3. History of recurrent right-sided pleural effusion, status post video-assisted thoracotomy with decortication back in 09/2018. 4. Liver cirrhosis. 5. Tobacco dependence, in remission. 6. Acute exacerbation of chronic obstructive pulmonary disease. 7. Acute on chronic cor pulmonale. 8. History of atrial fibrillation. 9. HYPOKALEMIA Plan . DC TODAY FOLLOW UP WITH ME IN OFFICE JEREMY DRAKE MD Oct 14, 2019 16:28
[2019-10-14] MEDS ORDERED: METOPROLOL TART IMMED RELEASE 25 MG TABLET. PO SCH (21:00)
== END 2019-10-14 14:07 | disposition home or self-care (01) | DRG 871 ==
LOC: ER 04:48 → 1 WEST ICU 05:40 → 2 SOUTH 14:59
PROVIDERS: ADMIT Internal Medicine; ATTEND Internal Medicine
PROC: 5A09357 Assistance with Respiratory Ventilation, Less than 24 Consecutive Hours, Continuous Positive Airway Pressure (ICD-10-PCS; 2019-10-11)
PROC: 0W9B3ZZ Drainage of Left Pleural Cavity, Percutaneous Approach (ICD-10-PCS; principal; 2019-10-13)
DX: A41.9 Sepsis, unspecified organism (principal); I50.43 Acute on chronic combined systolic (congestive) and diastolic (congestive) heart failure; J96.21 Acute and chronic respiratory failure with hypoxia; I26.09 Other pulmonary embolism with acute cor pulmonale; J18.9 Pneumonia, unspecified organism; I48.21 Permanent atrial fibrillation; J44.1 Chronic obstructive pulmonary disease with (acute) exacerbation; I13.0 Hypertensive heart and chronic kidney disease with heart failure and stage 1 through stage 4 chronic kidney disease, or unspecified chronic kidney disease; N39.0 Urinary tract infection, site not specified; I42.9 Cardiomyopathy, unspecified; F17.211 Nicotine dependence, cigarettes, in remission; N40.0 Benign prostatic hyperplasia without lower urinary tract symptoms; M10.9 Gout, unspecified; M19.90 Unspecified osteoarthritis, unspecified site; Z96.652 Presence of left artificial knee joint; K70.30 Alcoholic cirrhosis of liver without ascites; E87.6 Hypokalemia; B96.89 Other specified bacterial agents as the cause of diseases classified elsewhere; N18.9 Chronic kidney disease, unspecified; Z83.3 Family history of diabetes mellitus; Z82.49 Family history of ischemic heart disease and other diseases of the circulatory system; Z95.0 Presence of cardiac pacemaker; Z86.73 Personal history of transient ischemic attack (TIA), and cerebral infarction without residual deficits; Z88.0 Allergy status to penicillin
CPT/HCPCS: 32555; 36415; 36600; 71045; 71250; 80048; 80053; 80202; 81001; 82805; 83605; 83615; 83735; 83880; 83986; 84145; 84157; 84484; 85007; 85025; 87040; 87071; 87075; 87086; 87116; 87205; 87804; 88112; 88305; 93005; 94640; 94660; 94760; 96365; 96367; 96375; C1892; J1940; J1956; J2930; J3370; J3475; J3480; J3490; J7040; J7050; 99291-25; G0378; J7030; Q0163

== ENCOUNTER → 2020-06-19 | Outpatient (CLI) | payer MEDICARE, OTHER ==
[2020-01-22 11:17] VITALS: BP 114/55
[~2020-06-19] MED LIST changes: -AMIO200T4 PO; +AMIO200T6 PO; +AMLO-186 PO; +AMLO-187 PO; -AMLO10TA8 PO; -AMLO5TAB10 PO; -ASPI-612 PO; +ASPI-886 PO; +FURO-68 PO; +LACT1CAP21 PO; +LEVO500T59 PO; +METO2.5T PO; +MUPI22OI2 TP; +PANT40TA77 PO; +PRED20TA PO; +REGADENOSON 0.4 MG/5 ML DISP.SYRIN. IV ONE; +SULF1TAB24 PO; +TAMS0.4C97 PO; +[UNRECOGNIZED DRUG - OTHER] NAS
--- NOTE | 2020-06-19 18:54 | RAD ---
MR#: [id number] Date of Study: 06/19/2020 Ordering Physician: SHIRLEY CORDERO, Referring Physician: TRISTAN VALDEZ Tech: RT Yair (R) (N) APPROVED REPORT Test Type: Pharmacological Stress Nurse/Tech: ABELARDO OLSON Test Indications: CARDIOMYOPATHY Cardiac History: HTN, PPM, AFIB, SEE EMR Medications: SEE EMR Medical History: COPD, SMOKER, SEE EMR Resting ECG: AFIB/FLUTTER/VPACED Resting Heart Rate: 65 bpm Resting Blood Pressure: 149/68mmHg Pretest Chest Pain: No chest pain Nurse/Tech Notes IRREGUALR RATE/RHYTHM, PPM, DENIED SOA OR CP. VSS. NO COMPLAINTS. Consent: The procedure was explained to the patient in lay terms. Informed consent was witnessed. Mark eout was entered into [employer]. History and Stress Test performed by BRIANA Riddle Pharm. Details Pharmacologic stress testing was performed using 0.4mg per 5ml of regadenoson given intravenously ove r 7-10 seconds. Stress Symptoms PT C/O SOA DURING INITAL PART OF THE TESTING, BUT RESOLVED FAIRLY QUICKLY. VSS. DENIED CP. POST EXERCISE Reason for Termination: Infusion complete Max HR: 108 bpm Max Blood Pressure: 153/62mmHg Blood Pressure response to exercise: Normal blood pressure response during stress. Heart Rate response to exercise: NORMAL HEART RATE RESPONSE DURING STRESS Chest Pain: No. Arrhythmia: Yes. UNDERLYING AFIB/PACED BEATS INTERPRETATION Stress EKG Conclusion: The resting EKG shows a V paced rhythm. The patient remains in a V paced rhythm throughout the study. Imaging Protocol IMAGE PROTOCOL: Rest Tc-99m/stress Tc-99m 1 day Rest: Stress: Viability: Radiopharm.Tc99m CihcqacycXk38g Sestamibi Dose10.4mCi 33mCi Duration 13min. 13min. Img Date 06/19/2020 06/19/2020 Inj-Img Bllu31sxn. 60min. Rest Admin Site:IV - Right AntecubitalAdministrator:RT Vinnie MazariegosR)(N) Stress Admin Site: IV - Right AntecubitalAdministrator: BRIANA Riddle STRESS DATA End Diast. Vol.148.0mlLVEDV index BSA71.0ml End Syst. Vol.62.0mlLVESV index BSA30.0ml Myocardial Tsar621.0gEject. Liularih00.0% Stress Scores Regional WT0.00Summed WT15.00 Regional WM0.00Summed WM7.00 LV Perfusion The stress scans show minimal inferior wall thinning. The rest scans show mild inferior wall thinning. Nuclear imaging shows no reversible ischemia. Nuclear imaging shows minimal to mild inferior wall thinning more significant on the rest images most consistent with a technical defect. Wall Motion Left ventricular systolic function shows mild septal hypokinesis with an ejection fraction of 55%. LV Perf. Quant 17 Seg. SSS10.00 17 Seg. SRS9.00 17 Seg. SDS4.00 Stress Defect Extent (% LAD)10.00Rest Defect Extent (% LAD)18.80Rev. Defect Extent (% LAD)0.00 Stress Defect Extent (% LCX) 28.80Rest Defect Extent (% LCX)2.50Rev. Defect Extent (% LCX)16.30 Stress Defect Extent (% RCA)5.60Rest Defect Extent (% RCA)30.00Rev. Defect Extent (% RCA)1.10 Stress Defect Extent (% ELLIE)14.80Rest Defect Extent (% ELLIE)19.60Rev. Defect Extent (% ELLIE)3.50 Conclusion 1. The patient remained in a V paced rhythm. 2. Nuclear imaging shows no reversible ischemia. 3. Nuclear imaging shows fixed thinning in the inferior wall more prominent on the rest images and m ost consistent with a technical defect. 4. Left ventricular systolic function shows a mild septal wall motion abnormality and an ejection fra ction of 55%. 5. Moderately low risk Lexiscan nuclear stress test with no reversible ischemia and mild inferior wal l thinning most consistent with a technical defect although an infarct cannot be entirely excluded. Signed by : Ciro Lutz MD Electronically Approved : 06/19/2020 18:54:17
== END ==
LOC: NM 09:04
PROVIDERS: ATTEND Internal Medicine Cardiovascular Disease
DX: I42.9 Cardiomyopathy, unspecified (principal); I48.91 Unspecified atrial fibrillation; I10 Essential (primary) hypertension
CPT/HCPCS: 78452; 93017; A9500; J2785

== ENCOUNTER → 2020-07-03 | Outpatient (CLI) | payer MEDICARE, OTHER ==
[2020-01-22 11:17] VITALS: BP 114/55
[~2020-07-03] MED LIST changes: +MULT1TAB13 PO; -REGADENOSON 0.4 MG/5 ML DISP.SYRIN. IV ONE
== END ==
LOC: LAB 13:29
PROVIDERS: ATTEND Internal Medicine Gastroenterology
DX: Z01.812 Encounter for preprocedural laboratory examination (principal); Z20.828 Contact with and (suspected) exposure to other viral communicable diseases
CPT/HCPCS: U0003

== ENCOUNTER → 2020-07-06 | Day surgery (SDC) | payer MEDICARE, OTHER ==
[~2020-07-06] MED LIST changes: +FURO20TA3 PO; +IV RINGERS,LACTATED 1000ML 1,000 ML IV SCH; +LIDOCAINE 2% PF 5 ML VIAL. ONE; +PROPOFOL 10 MG/ML (20ML) VIAL. IV ONE
[2020-07-06 08:47] VITALS: BP 136/67
--- NOTE | 2020-07-06 13:32 | HP ---
ADMIT DATE: 07/06/2020 UPDATED HISTORY AND PHYSICAL REFERRING PHYSICIAN: Carlos Yancey MD HISTORY OF PRESENT ILLNESS: A 79-year-old male whose past medical history is significant for cirrhosis with alcohol use, is seen for surveillance endoscopy to assess for varices, has been compensated at this time. Prior imaging has been unrevealing for pathology. Weight and appetite have been good and his energy is satisfactory as well. He is otherwise without additional complaints. PAST MEDICAL HISTORY: Significant for gout, hypertension, cirrhosis. ALLERGIES: PENICILLIN. MEDICATIONS: Include Zyloprim, Pradaxa, finasteride, furosemide, losartan, multivitamin, spironolactone, tamsulosin, and tramadol. FAMILY HISTORY: Unrevealing for colon cancer with positive for CVA with his father. SOCIAL HISTORY: He is a drinker and a present smoker. PAST SURGICAL HISTORY: Significant for back surgery, eye surgery, joint replacement, vasectomy, carotid endarterectomy. REVIEW OF SYSTEMS: Per records. PHYSICAL EXAMINATION: GENERAL: Reveals a well-nourished, well-developed male who is alert, cooperative, in no acute distress. VITAL SIGNS: Temperature is 98, pulse 65, respiratory rate 20. LUNGS: Clear. CARDIOVASCULAR: Reveals an S1, S2 without S3, S4 or appreciable murmur. ABDOMEN: Soft abdomen, normal bowel sounds, without appreciable hepatosplenomegaly. EXTREMITIES: Reveals no cyanosis, clubbing or edema. IMPRESSION: Cirrhosis. EGD is recommended to assess for varices. Risks and benefits of procedure have been discussed with the patient and is willing to proceed at this time. PAVAN SPANN MD DR: MAICOL/ryan JOB#: [id number] / [id number]
== END | disposition home or self-care (01) ==
LOC: ENDOS 06:32
PROVIDERS: ATTEND Internal Medicine Gastroenterology
DX: K92.1 Melena (principal); R13.10 Dysphagia, unspecified; K74.60 Unspecified cirrhosis of liver; K29.50 Unspecified chronic gastritis without bleeding; M10.9 Gout, unspecified; I10 Essential (primary) hypertension; I48.91 Unspecified atrial fibrillation; J44.9 Chronic obstructive pulmonary disease, unspecified; E78.00 Pure hypercholesterolemia, unspecified; K21.9 Gastro-esophageal reflux disease without esophagitis; M19.90 Unspecified osteoarthritis, unspecified site; N40.0 Benign prostatic hyperplasia without lower urinary tract symptoms; F17.210 Nicotine dependence, cigarettes, uncomplicated; Z79.899 Other long term (current) drug therapy; Z98.890 Other specified postprocedural states; Z72.89 Other problems related to lifestyle; Z88.0 Allergy status to penicillin
CPT/HCPCS: 43235; J2704

== ENCOUNTER → 2021-11-28 | Outpatient (CLI) | payer MEDICARE, OTHER ==
[2021-04-15 11:00] VITALS: BP 121/57
[~2021-11-28] MED LIST changes: +AMIO200T53 PO; -AMIO200T6 PO; +DIPH25TA24 PO; -IV RINGERS,LACTATED 1000ML 1,000 ML IV SCH; +LEVO500T9 PO; -LIDOCAINE 2% PF 5 ML VIAL. ONE; +MELA5CAP PO; -PROPOFOL 10 MG/ML (20ML) VIAL. IV ONE
--- NOTE | 2021-11-28 17:56 | CARD ---
MR#: [id number] Date of Study: 11/28/2021 Ordering Physician: SHIRLEY CORDERO, Referring Physician: SHIRLEY CORDERO, Tech: Noel Monaco DR[facility] APPROVED REPORT EXAM: Two-dimensional and M-mode echocardiogram with Doppler and color Doppler. Other Information Quality : AverageHR: 72bpm Rhythm : Atrial Fibrillation INDICATION Congestive Heart Failure Surgery/Intervention Pacemaker: RISK FACTORS Hypertension 2D DIMENSIONS RVDd1.8 (2.9-3.5cm)Left Atrium(2D)4.6 (1.6-4.0cm) IVSd1.0 (0.7-1.1cm)Aortic Root(2D)3.5 (2.0-3.7cm) LVDd4.8 (3.9-5.9cm)LVOT Diameter2.0 (1.8-2.4cm) PWd0.9 (0.7-1.1cm)LVDs3.0 (2.5-4.0cm) FS (%) 37.2 %SV67.3 ml Aortic Valve AoV Peak Ambrocio.108.8cm/sAoV VTI22.9cm AO Peak GR.4.7mmHgLVOT Peak Ambrocio.73.8cm/s LVOT VTI 12.64cmAO Mean GR.3mmHg NORBERT (VMAX)1.58mt1MVY (VTI)1.99cm2 Mitral Valve MV E Osvzwwin54.8cm/sMV DECEL CCHN068eg MV A Fgszxhep54.7cm/sMV [id number] E/A Ratio2.2MVA (PHT)6.76cm2 TDI E/Medial E'29.0 Pulmonary Valve PV Peak Zckxvglw58.2cm/sPV Peak Grad.2mmHg Tricuspid Valve TR P. Myewpwgh530sb/sTR Peak Gr.24mmHg Pulmonary Vein S1 Rsbeaemz69.9cm/sD2 Olurhcdu96.2cm/s LEFT VENTRICLE The left ventricle is normal size. There is normal left ventricular wall thickness. The systolic func tion is mildly impaired. The Ejection Fraction is 45-50%. Mild distal septal/apical hypokinesis No le ft ventricle thrombus noted on this study. There is no ventricular septal defect visualized. There is no left ventricular aneurysm. There is no mass noted in the left ventricle. RIGHT VENTRICLE The right ventricle is normal size. There is normal right ventricular wall thickness. The right ventr icular systolic function is normal. ATRIA The left atrium is mild to moderately dilated. The right atrium size is normal. The interatrial septu m is intact with no evidence for an atrial septal defect or patent foramen ovale as noted on 2-D or D oppler imaging. AORTIC VALVE The aortic valve is mildly sclerotic. Doppler and Color Flow revealed no significant aortic regurgita tion. There is no significant aortic valvular stenosis. There is no aortic valvular vegetation. MITRAL VALVE The mitral valve is normal in structure and function. There is no evidence of mitral valve prolapse. There is no mitral valve stenosis. Doppler and Color-flow revealed mild mitral regurgitation. TRICUSPID VALVE The tricuspid valve is normal in structure and function. Doppler and Color Flow revealed mild tricusp id regurgitation. There is no tricuspid valve prolapse or vegetation. There is no tricuspid valve nickie nosis. PULMONIC VALVE The pulmonary valve is normal in structure and function. Doppler and Color Flow revealed no pulmonic valvular regurgitation. There is no pulmonic valvular stenosis. GREAT VESSELS The aortic root is normal in size. The ascending aorta is normal in size. The pulmonary artery is nor mal. The IVC is normal in size and collapses >50% with inspiration. PERICARDIAL EFFUSION There is no pleural effusion. There is no evidence of significant pericardial effusion. Critical Notification Critical Value: No <Conclusion> The left ventricle is normal size. The systolic function is mildly impaired. The Ejection Fraction is 45-50%. Mild distal septal/apical hypokinesis Doppler and Color Flow revealed no significant aortic regurgitation. There is no significant aortic valvular stenosis. Doppler and Color-flow revealed mild mitral regurgitation. Doppler and Color Flow revealed mild tricuspid regurgitation. Signed by : Ciro Lutz MD Electronically Approved : 11/28/2021 17:55:47
== END ==
LOC: ECHO 09:33
PROVIDERS: ATTEND Internal Medicine Cardiovascular Disease
DX: I08.3 Combined rheumatic disorders of mitral, aortic and tricuspid valves (principal); I50.30 Unspecified diastolic (congestive) heart failure
CPT/HCPCS: 93306; C8929